=== PATIENT | male | born 1965 | race Caucasian/White ===

== ENCOUNTER 2023-10-29 11:01 | Inpatient (IN) | payer MEDICAID, OTHER ==
[~2023-10-29] VITALS: Ht 188 cm; Wt 85.8 kg
[2023-10-29 11:42] LABS: Basophils # (auto) 0.1 10 ^3/uL (0-0.2); Basophils % (auto) 0.7 % (0.0-2.0); Eosinophils # (auto) 0.3 10 ^3/uL (0-0.8); Eosinophils % (auto) 3.3 % (0.0-7.0); Hematocrit 44.3 % (41.0-53.0); Hemoglobin 15.7 g/dL (13.5-17.5); Lymphocytes # (auto) 1.7 10 ^3/uL (0.4-5.4); Lymphocytes % (auto) 17.3 % (10.0-50.0); Mean Corpuscular Hemoglobin 30.3 pg (28.0-32.0); Mean Corpuscular Hgb Conc. 35.4 g/dL (32.0-36.0); Mean Corpuscular Volume 85.7 fL (80.0-100.0); Monocytes # (auto) 0.7 10 ^3/uL (0-1.3); Monocytes % (auto) 7.1 % (0.0-12.0); Neutrophils # (auto) 6.9 10 ^3/uL (1.6-8.6); Neutrophils % (auto) 71.6 % (37.0-80.0); Platelet Count (auto) 257 10^3/uL (140-450); Red Blood Cells 5.17 10^6/uL (4.5-5.90); Red Cell Distribution Width 12.8 % (11.8-14.3); White Blood Cell 9.7 10^3/uL (4.4-10.8)
[2023-10-29 12:00] LABS: Alanine Aminotransferase 24 U/L (7-40); Albumin 4.7 g/dL (3.2-4.8); Alkaline Phosphatase 107 U/L (46-116); Anion Gap 8 (5-15); Aspartate Aminotransferase 10 U/L (13-40); BUN/Creatinine Ratio 5.7 (10.0-20.0); Bilirubin, Total 0.5 mg/dL (0.2-1.0); Blood Urea Nitrogen 5 mg/dL (9-23); Calcium 9.7 mg/dL (8.7-10.4); Carbon Dioxide 27 mmol/L (20-30); Chloride 100 mmol/L (98-107); Glucose 215 mg/dL (74-106); Potassium 3.6 mmol/L (3.5-5.1); Sodium 135 mmol/L (136-145); Total Protein 7.8 g/dL (5.7-8.2)
[2023-10-29 12:08] LABS: CRP High Sensitivity 3.33 mg/dL (<1.0)
[2023-10-29] MEDS ORDERED: VANCOMYCIN PER PHARMACY 0 MG IV SCH ×2 (12:30→14:30)
[2023-10-29] MEDS ORDERED: VANCOMYCIN 1GM/200ML 200 ML IV SCH (13:00)
[2023-10-29 13:17] LABS: Erythrocyte Sedimentation Rate 24 mm/hr (0-20)
[2023-10-29] MEDS ORDERED: DEXTROSE (50%) 50ML SYRG IV PRN ×2 (13:45→14:30)
[2023-10-29] MEDS ORDERED: NITROGLYCERIN 0.4 MG SL TAB SL PRN (14:30)
[2023-10-29] MEDS: LISINOPRIL 5 MG TAB PO ONE (14:30)
[2023-10-29] MEDS ORDERED: DOCUSATE SOD 100 MG CAP PO PRN (14:30)
[2023-10-29] MEDS: SODIUM CHLORIDE 0.9% 1,000 ML IV SCH (14:30)
[2023-10-29] MEDS ORDERED: ONDANSETRON HCL 4 MG/2 ML VIAL IV PRN (14:30)
[2023-10-29] MEDS: PIPERACILLIN-TAZOB 3.375GM 100 ML IV ONE (14:39)
[2023-10-29] MEDS ORDERED: ACCU-CHEK COMFORT CURVE STRIP VI SCH (17:00)
[2023-10-29] MEDS: InsuLIN REG 1unit/0.01ml Soln (100units/ml) SC SCH ×2 (17:00→21:50)
[2023-10-29] MEDS ORDERED: InsuLIN REG 1unit/0.01ml Soln (100units/ml) SC SCH (17:00)
[2023-10-29] MEDS: ACCU-CHEK COMFORT CURVE STRIP VI SCH (17:27)
[2023-10-29 17:42] VITALS: BP 153/102; PULSE 77; RESP 20; TEMP 98; O2SAT 98
[2023-10-29 17:56] VITALS: BP 153/102; PULSE 79; RESP 20; TEMP 98; O2SAT 97
[2023-10-29 18:15] VITALS: BP 153/102; PULSE 77; RESP 20; TEMP 98; O2SAT 98
[2023-10-29 20:00] VITALS: PULSE 84; RESP 18; O2SAT 98
[2023-10-29 21:00] VITALS: BP 144/84; PULSE 80; RESP 21; TEMP 97.7; O2SAT 95
[2023-10-29] MEDS: VANCOMYCIN 1GM/200ML 200 ML IV SCH (21:52)
[2023-10-30] MEDS: PIPERACILLIN-TAZOB 3.375GM 100 ML IV SCH (00:02)
[2023-10-30 05:00] VITALS: BP 148/88; PULSE 71; RESP 18; TEMP 97.9; O2SAT 93
[2023-10-30 07:33] LABS: Basophils # (auto) 0 10 ^3/uL (0-0.2); Basophils % (auto) 0.6 % (0.0-2.0); Eosinophils # (auto) 0.4 10 ^3/uL (0-0.8); Eosinophils % (auto) 4.8 % (0.0-7.0); Hematocrit 40.9 % (41.0-53.0); Hemoglobin 14.6 g/dL (13.5-17.5); Lymphocytes # (auto) 1.7 10 ^3/uL (0.4-5.4); Lymphocytes % (auto) 21.7 % (10.0-50.0); Mean Corpuscular Hemoglobin 30.5 pg (28.0-32.0); Mean Corpuscular Hgb Conc. 35.7 g/dL (32.0-36.0); Mean Corpuscular Volume 85.6 fL (80.0-100.0); Monocytes # (auto) 0.7 10 ^3/uL (0-1.3); Monocytes % (auto) 8.8 % (0.0-12.0); Neutrophils # (auto) 5.1 10 ^3/uL (1.6-8.6); Neutrophils % (auto) 64.1 % (37.0-80.0); Platelet Count (auto) 230 10^3/uL (140-450); Red Blood Cells 4.78 10^6/uL (4.5-5.90); Red Cell Distribution Width 12.9 % (11.8-14.3)
[2023-10-30 07:38] LABS: Alanine Aminotransferase 18 U/L (7-40); Albumin 4.2 g/dL (3.2-4.8); Alkaline Phosphatase 89 U/L (46-116); Anion Gap 7 (5-15); Aspartate Aminotransferase 9 U/L (13-40); BUN/Creatinine Ratio 8.6 (10.0-20.0); Blood Urea Nitrogen 8 mg/dL (9-23); Calcium 9.2 mg/dL (8.7-10.4); Carbon Dioxide 27 mmol/L (20-30); Chloride 101 mmol/L (98-107); Glucose 179 mg/dL (74-106); Potassium 3.8 mmol/L (3.5-5.1); Sodium 135 mmol/L (136-145)
[2023-10-30 07:39] LABS: Bilirubin, Total 0.5 mg/dL (0.2-1.0); Total Protein 6.9 g/dL (5.7-8.2)
[2023-10-30 08:15] VITALS: BP_SYST 142; BP_SYST 151; BP_DIAS 95; BP_DIAS 97; PULSE 65; PULSE 87; RESP 19; RESP 20; TEMP 97.3; TEMP 97.5; O2SAT 93; O2SAT 98
[2023-10-30] MEDS: ENOXAPARIN SOD 40 MG/0.4 ML SYRINGE SC SCH (10:07)
[2023-10-30] MEDS: LISINOPRIL 5 MG TAB PO SCH (10:07)
[2023-10-30 12:30] VITALS: BP 146/82; PULSE 68; RESP 17; TEMP 98.3; O2SAT 94
[2023-10-30 16:52] VITALS: BP 146/79; PULSE 67; RESP 19; TEMP 98.3; O2SAT 97
[2023-10-30 20:15] VITALS: PULSE 84; RESP 18; O2SAT 98
[2023-10-30 21:00] VITALS: BP 153/86; PULSE 71; RESP 18; TEMP 98.7; O2SAT 94
[2023-10-30] MEDS: VANCOMYCIN 1GM/200ML 200 ML IV SCH (23:04)
[2023-10-31 01:00] VITALS: BP 146/86; PULSE 71; RESP 18; TEMP 98.4; O2SAT 95
[2023-10-31 05:00] VITALS: BP 128/78; PULSE 74; RESP 18; TEMP 98; O2SAT 95
[2023-10-31] MEDS: guaiFENesin-DM 100/10mg/5ml SYR PO PRN (08:44)
[2023-10-31 13:32] VITALS: BP 145/94; PULSE 71; RESP 17; TEMP 98.8; O2SAT 95
[2023-10-31] MEDS: MORPHINE SULFATE INJ 2 MG/ml SYRG IV PRN (15:57)
[2023-10-31 17:00] VITALS: BP 143/78; PULSE 73; RESP 17; TEMP 98.2; O2SAT 96
[2023-10-31 20:00] VITALS: PULSE 84; RESP 18; O2SAT 98
[2023-10-31 21:00] VITALS: BP_SYST 108; BP_SYST 140; BP_DIAS 69; BP_DIAS 89; PULSE 73; RESP 20; TEMP 98.1; O2SAT 94
[2023-10-31] MEDS: ACETAMINOPHEN 325 MG TAB PO PRN (22:46)
[2023-11-01] VITALS (8 sets, daily range): BP systolic 135–147; BP diastolic 80–88; PULSE 62–75; RESP 13–20; TEMP 97.5–98.7; O2SAT 90–93
[2023-11-02] VITALS (7 sets, daily range): BP systolic 135–164; BP diastolic 88–96; PULSE 74–79; RESP 16–19; TEMP 97.7–98; O2SAT 93–98
[2023-11-03] VITALS (8 sets, daily range): BP systolic 141–163; BP diastolic 80–83; PULSE 63–74; RESP 16–20; TEMP 97.8–98; O2SAT 92–95
[2023-11-03] MEDS: PIPERACILLIN-TAZOB 3.375GM 100 ML IV ONE (14:20)
[2023-11-04] VITALS (7 sets, daily range): BP systolic 114–151; BP diastolic 73–108; PULSE 52–86; RESP 17–20; TEMP 97.9–98.2; O2SAT 93–97
[2023-11-04 07:15] LABS: Basophils # (auto) 0.1 10 ^3/uL (0-0.2); Basophils % (auto) 0.6 % (0.0-2.0); Eosinophils # (auto) 0.4 10 ^3/uL (0-0.8); Eosinophils % (auto) 4.9 % (0.0-7.0); Hematocrit 43.4 % (41.0-53.0); Hemoglobin 15.4 g/dL (13.5-17.5); Lymphocytes # (auto) 1.8 10 ^3/uL (0.4-5.4); Lymphocytes % (auto) 21.7 % (10.0-50.0); Mean Corpuscular Hemoglobin 30.8 pg (28.0-32.0); Mean Corpuscular Hgb Conc. 35.6 g/dL (32.0-36.0); Mean Corpuscular Volume 86.7 fL (80.0-100.0); Monocytes # (auto) 0.7 10 ^3/uL (0-1.3); Monocytes % (auto) 8.7 % (0.0-12.0); Neutrophils # (auto) 5.2 10 ^3/uL (1.6-8.6); Neutrophils % (auto) 64.1 % (37.0-80.0); Platelet Count (auto) 209 10^3/uL (140-450); Red Blood Cells 5.01 10^6/uL (4.5-5.90); Red Cell Distribution Width 12.6 % (11.8-14.3); White Blood Cell 8.1 10^3/uL (4.4-10.8)
[2023-11-04] MEDS ORDERED: METF-489 PO (11:52)
[2023-11-04] MEDS ORDERED: HYDR-4902 PO (11:52)
[2023-11-04] MEDS ORDERED: AUG875T PO (11:52)
[2023-11-04] MEDS ORDERED: LISI20TA56 PO (11:52)
[2023-11-04] MEDS ORDERED: GABA-1308 PO (14:51)
== END 2023-11-04 17:47 | disposition home health service (06) | DRG 383 ==
LOC: ER 11:01 → OVERFLOW 14:27 → WEST WING 17:48
PROVIDERS: ADMIT Nurse Practitioner Family; ATTEND Internal Medicine
DX: L03.115 Cellulitis of right lower limb (principal); E11.621 Type 2 diabetes mellitus with foot ulcer; L97.519 Non-pressure chronic ulcer of other part of right foot with unspecified severity; E11.42 Type 2 diabetes mellitus with diabetic polyneuropathy; I10 Essential (primary) hypertension; E11.65 Type 2 diabetes mellitus with hyperglycemia; F41.9 Anxiety disorder, unspecified; F17.200 Nicotine dependence, unspecified, uncomplicated
CPT/HCPCS: 36415; 73630; 73718; 80053; 80202; 82565; 82962; 83036; 83605; 83880; 85025; 85652; 86141; 87081; 87340; 93926; 93971; G0378; J1815; J2543

== ENCOUNTER 2024-04-30 12:11 | Inpatient (IN) | payer MEDICAID ==
[~2024-04-30] VITALS: Ht 188 cm; Wt 122.4 kg
[~2024-04-30 12:11] MED LIST: AUG875T PO; GABA-1308 PO; HYDR-4902 PO; LISI20TA56 PO; METF-489 PO
--- NOTE | 2024-04-30 12:21 | ED.PDOC ---
History of Present Illness HPI Comments 58Y M with PMHx DM, HTN, Hep C, and neuropathy presents to ED via EMS for chief complaint weakness x3days with numbness, left sided chest pain, and n/v this morning. Per EMS, BS 133 on the field. No other symptoms reported. Time Seen by MD: 12:12 Reviewed Notes: Nurses Notes, Associate Broker Notes, Medications, Allergies Allergies: Coded Allergies: NO KNOWN ALLERGIES (Unverified , 10/29/23) Home Meds Active Scripts Gabapentin (Gabapentin) 100 Mg Cap, 1 CAP PO TID, #90 CAP 5 Refills Prov:CHICHO CRAWFORD MD 11/04/23 Hydrocodone-Acetaminophen (Hydrocodone Bitartrate/AC 5-325 mg) 1 Tab Tab, 1 TAB PO Q6HPRN PRN, #20 TAB Prov:CHICHO CRAWFORD MD 11/04/23 Lisinopril (Lisinopril) 20 Mg Tab, 1 TAB PO DAILY, #30 TAB 5 Refills Prov:CHICHO CRAWFORD MD 11/04/23 Metformin Hydrochloride (METFORMIN HCL ER) 500 Mg Tab, 500 MG PO BID, #60 TAB 5 Refills Prov:CHICHO CRAWFORD MD 11/04/23 Amoxicillin & Pot Clavulanate (AUGMENTIN TABLET) 875 Mg Tb, 875 MG PO BID, #28 TAB Prov:CHICHO CRAWFORD MD 11/04/23 Information Source: Patient, Emergency Med Personnel, [facility] Medical Record Mode of Arrival: EMS Severity: Mild Timing: Days Duration: Since onset Prehospital treatment: None Past Medical History PAST MEDICAL HISTORY: DM, HTN, Liver Surgical History: Denies all surgeries Family History Family History: Reviewed,noncontributory to illness, No family hx of Cancer, No family hx of DM, No family hx of Heart yary, No family hx of HTN, No family hx ofKidney yary, No family hx of Liver yary, No family hx of Lung yary, No family hx of Stroke Social History Smoker: Cigarettes Alcohol: Denies ETOH Use Drugs: Denies Drug Use Lives In: Assisted Care Constitutional: reports: weakness; denies: chills, diaphoresis, fatigue, fever, malaise, sweats, others EENTM: denies: blurred vision, double vision, ear bleeding, ear discharge, ear drainage, ear pain, ear ringing, eye pain, eye redness, hearing loss, mouth pain, mouth swelling, nasal discharge, nose bleeding, nose congestion, nose pain, photophobia, tearing, throat pain, throat swelling, voice changes, others Respiratory: denies: cough, hemoptysis, orthopnea, SOB at rest, shortness of breath, SOB with excertion, stridor, wheezing, others Cardiovascular: reports: chest pain; denies: dizzy spells, diaphoresis, Dyspnea on exertion, edema, irregular heart beat, left arm pain, lightheadedness, palpitations, PND, syncope, others Gastrointestinal: reports: nausea, vomiting; denies: abdomen distended, abdominal pain, blood streaked bowels, constipated, diarrhea, dysphagia, difficulty swallowing, hematemesis, melena, poor appetite, poor fluid intake, rectal bleeding, rectal pain, others Genitourinary: denies: burning, dysuria, flank pain, frequency, hematuria, incontinence, penile discharge, penile sore, pain, testicle pain, testicle swelling, urgency, others Neurological: reports: numbness, weakness; denies: dizziness, fainting, headache, left sided numbness, left sided weakness, paresthesia, pre-existing deficit, right sided numbness, right sided weakness, seizure, speech problems, tingling, tremors, others Musculoskeletal: denies: back pain, gout, joint pain, joint swelling, muscle pain, muscle stiffness, neck pain, others Integumetry: denies: bruises, change in color, change in hair/nails, dryness, laceration, lesions, lumps, rash, wounds, others Allergic/Immunocompromised: denies: Difficulty Healing, Frequent Infections, Hives, Itching, others Hematologic/Lymphatic: denies: anemia, blood clots, easy bleeding, easy bruising, swollen glands, others Endocrine: denies: excessive hunger, excessive sweating, excessive thirst, excessive urination, flushing, intolerance to cold, intolerance to heat, unexplained weight gain, unexplained weight loss, others Psychiatric: denies: anxiety, bipolar disorder, depression, hopeless, panic disorder, schizophrenia, sleepless, suicidal, others All Other Systems: Reviewed and Negative Physical Exam General Appearance: No Apparent Distress, Normal HEENT: Normal ENT Inspection, Pharynx Normal, TMs Normal Neck: Full Range of Motion, Non-Tender, Normal, Normal Inspection Respiratory: Chest Non-Tender, Lungs Clear, No Accessory Muscle Use, No Respiratory Distress, Normal Breath Sounds Cardiovascular: No Edema, No JVD, No Murmur, No Gallop, Normal Peripheral Pulses, Regular Rate/Rhythm Breast Exam: Deferred Gastrointestinal: No Organomegaly, Non Tender, No Pulsatile Mass, Normal Bowel Sounds, Soft Genitalia: Deferred Pelvic: Deferred Rectal: Deferred Extremities: No calf tenderness, Normal capillary refill, Normal inspection, Normal range of motion, Non-tender, No pedal edema Musculoskeletal : Apperance: Normal Neurologic: Alert, chisel trimmer II-XII nml as Tested, No Motor Deficits, Normal Affect, Normal Mood, No Sensory Deficits Cerebellar Function: Normal Reflexes: Normal Skin: Dry, Normal Color, Warm Lymphatic: No Adenopathy Was a procedure done? Was a procedure done?: No Differential Dx Considerations may include: unstable angina, stemi, nstemi, anxiety, chest wall pain, zoster, pe, ptx, pleurisy, pneumonia, dehydration X-Ray, Labs, Meds, VS Vital Signs Date Time Temp Pulse Resp B/P (MAP) Pulse Ox O2 Delivery O2 Flow Rate FiO2 04/30/24 13:56 100 22 95 Room Air* 0 21 04/30/24 12:44 103 16 94 Room Air 04/30/24 12:44 97.6 103 16 148/92 (110) 94 97.6 04/30/24 12:25 98.9 100 24 142/87 (105) 95 98.9 Lab Test 04/30/24 13:31 04/30/24 12:32 Range/Units Troponin I High Sensitivity < 3 L < 3 L </=54 ng/L White Blood Count 8.9 4.4-10.8 10^3/uL Red Blood Count 5.78 4.5-5.90 10^6/uL Hemoglobin 16.8 13.5-17.5 g/dL Hematocrit 48.7 41.0-53.0 % Mean Corpuscular Volume 84.3 80.0-100.0 fL Mean Corpuscular Hemoglobin 29.0 28.0-32.0 pg Mean Corpuscular Hemoglobin Concent 34.4 32.0-36.0 g/dL Red Cell Distribution Width 13.4 11.8-14.3 % Platelet Count 257 140-450 10^3/uL Mean Platelet Volume 7.5 6.9-10.8 fL Neutrophils (%) (Auto) 76.5 37.0-80.0 % Lymphocytes (%) (Auto) 14.9 10.0-50.0 % Monocytes (%) (Auto) 5.5 0.0-12.0 % Eosinophils (%) (Auto) 2.5 0.0-7.0 % Basophils (%) (Auto) 0.6 0.0-2.0 % Neutrophils # (Auto) 6.8 1.6-8.6 10 ^3/uL Lymphocytes # (Auto) 1.3 0.4-5.4 10 ^3/uL Monocytes # (Auto) 0.5 0-1.3 10 ^3/uL Eosinophils # (Auto) 0.2 0-0.8 10 ^3/uL Basophils # (Auto) 0.1 0-0.2 10 ^3/uL Nucleated Red Blood Cells 0.1 % Sodium Level 136 136-145 mmol/L Potassium Level 4.2 3.5-5.1 mmol/L Chloride Level 100 98-107 mmol/L Carbon Dioxide Level 27 20-31 mmol/L Anion Gap 9 5-15 Blood Urea Nitrogen 9 9-23 mg/dL Creatinine 1.28 0.700-1.30 mg/dL Glomerular Filtration Rate Calc 64 >90 mL/min BUN/Creatinine Ratio 7.0 L 10.0-20.0 Serum Glucose 352 H 74-106 mg/dL Calcium Level 9.7 8.7-10.4 mg/dL Current Medications Medications (Trade) Dose Ordered Sig/[place] Route Start Time Stop Time Status Last Admin Sodium Chloride 1,000 ml @ 1,000 mls/hr Q1H ONCE IV 04/30/24 12:30 04/30/24 13:29 DC 04/30/24 12:49 [place] [id number] Ph: [phone] DIAGNOSTIC IMAGING Diagnostic Imaging Report : [id number] Signed PATIENT: YOUSIF EASON ACCT: [id number] UNIT: [id number] : 1965 LOC: ER ROOM / BED: / AGE / SEX: 58 / M ADM STATUS: REG ER SERVICE 1216 ORDERING PHYSICIAN: SHIREEN LITTLEJOHN MD PROCEDURE(s): CXRP - CHEST PORTABLE REASON: cp ORDER NUMBER(s): [id number], ACCESSION NUMBER(s): [id number] CHEST RADIOGRAPH Indication: cp Technique: Single frontal view of the chest was obtained Comparison: None FINDINGS: Lines and Tubes: None Lungs: No focal consolidation. Pleura: No effusion. No pneumothorax. Cardiomediastinal contours: Unremarkable Bones: No acute osseous abnormality. IMPRESSION: No acute cardiopulmonary disease. ATED BY: SAMANTHA GARCIA DO DICTATED DATE/TIME: 04/30/24 1258 SIGNED BY: SAMANTHA GARCIA DO SIGNED DATE/TIME: 04/30/24 1258 CC: Time of 1ST Reevaluation: 12:42 Reevaluation 1ST: Unchanged Time of 2ND Reevaluation: 14:06 Reevaluation 2ND: Unchanged Patient Education/Counseling: Diagnosis, Treatment, Prognosis, Need For Follow Up Family Education/Counseling: No Family Present Additional Information Previous visit documents reviewed: [facility] discharge 11/04/2023 The following tests were ordered, and results were reviewed by me: EKG x3, CBC, BMP, Troponin x3, CXR Additional Information was gathered from interviewing the following independent historians: EMS I reviewed and agreed with the following test results read by other providers: CXR I discussed treatment and results with medical personnel and: Patient Departure 1 Departure Time of Disposition: 14:05 Impression: Primary Impression: Weakness Additional Impression: Unstable angina Disposition: ADMITTED INPATIENT Admit to: Tele Condition: Stable Critical Care Note Critical Care Time?: Yes (55 min-critical care time only) Critical care comment: Due to concerns for patients condition deteriorating, the care required my highest level of attention and readiness to intervene. I assessed the patient, reviewed the medical records, ordered the appropriate tests and treatments, then reassessed for results and responsiveness. I communicated with medical personnel and consultants and formulated a plan of care. Total critical care time excludes any procedures Stability Stability form required: No Heart Score Heart Score: Heart Score Response (Comments) Value History Moderate Suspicious 1 EKG Repolarization Disturb 1 Age 45-64 1 Risk Factors 1 or 2 risk factors 1 Troponin Normal limit 0 Total 4 I personally scribed for SHIREEN LITTLEJOHN MD ([facility]) on 04/30/24 at 12:21. Electronically submitted by Cha Blas ([facility]). I personally scribed for SHIREEN LITTLEJOHN MD ([facility]) on 04/30/24 at 13:26. Electronically submitted by Cha Blas ([facility]). SHIREEN LITTLEJOHN MD Apr 30, 2024 12:21
[2024-04-30] MEDS: SODIUM CHLORIDE 0.9% 1,000 ML IV ONE ×2 (12:49→22:44)
--- NOTE | 2024-04-30 13:00 | DVH ---
CHEST RADIOGRAPH Indication: cp Technique: Single frontal view of the chest was obtained Comparison: None FINDINGS: Lines and Tubes: None Lungs: No focal consolidation. Pleura: No effusion. No pneumothorax. Cardiomediastinal contours: Unremarkable Bones: No acute osseous abnormality. IMPRESSION: No acute cardiopulmonary disease.
[2024-04-30 13:02] LABS: Basophils # (auto) 0.1 10 ^3/uL (0-0.2); Basophils % (auto) 0.6 % (0.0-2.0); Eosinophils # (auto) 0.2 10 ^3/uL (0-0.8); Eosinophils % (auto) 2.5 % (0.0-7.0); Hematocrit 48.7 % (41.0-53.0); Hemoglobin 16.8 g/dL (13.5-17.5); Lymphocytes # (auto) 1.3 10 ^3/uL (0.4-5.4); Lymphocytes % (auto) 14.9 % (10.0-50.0); Mean Corpuscular Hgb Conc. 34.4 g/dL (32.0-36.0); Mean Corpuscular Volume 84.3 fL (80.0-100.0); Monocytes # (auto) 0.5 10 ^3/uL (0-1.3); Monocytes % (auto) 5.5 % (0.0-12.0); Neutrophils # (auto) 6.8 10 ^3/uL (1.6-8.6); Neutrophils % (auto) 76.5 % (37.0-80.0); Nucleated Red Blood Cells % 0.1 %; Platelet Count (auto) 257 10^3/uL (140-450); Red Blood Cells 5.78 10^6/uL (4.5-5.90); Red Cell Distribution Width 13.4 % (11.8-14.3); White Blood Cell 8.9 10^3/uL (4.4-10.8)
[2024-04-30 13:10] LABS: Chloride 100 mmol/L (98-107); Potassium 4.2 mmol/L (3.5-5.1)
[2024-04-30 13:11] LABS: Anion Gap 9 (5-15); Carbon Dioxide 27 mmol/L (20-31)
[2024-04-30 13:12] LABS: Calcium 9.7 mg/dL (8.7-10.4)
[2024-04-30 13:18] LABS: Blood Urea Nitrogen 9 mg/dL (9-23); Glucose 352 mg/dL (74-106); Sodium 136 mmol/L (136-145)
[2024-04-30 13:56] VITALS: PULSE 100; RESP 22; O2SAT 95
[2024-04-30] MEDS: ASPirin 325 MG TAB PO ONE (15:22)
[2024-04-30] MEDS: InsuLIN REG 1unit/0.01ml Soln (100units/ml) SC ONE (15:23)
[2024-04-30 16:00] VITALS: PULSE 92
--- NOTE | 2024-04-30 22:11 | DVHHPRES ---
History of Present Illness Resident Creating Document: JESSE CESAR RESDIENT History of Present Illness This is a 58-year-old male with past medical history of hypertension, diabetes with peripheral neuropathy, and hepatitis-C were is came to the hospital due to chest pain since 3 days. Pain is localized in left side, constant, 10/10, stabbing in nature, with no clear exacerbating or relieving factor. He also reports fever, nausea, vomiting, palpitation, bilateral upper limb numbness and generalized weakness. He denies shortness of breath, abdominal, or any recent bowel and bladder habit changes. PMHx: Diabetes with peripheral neuropathy, hypertension, hepatitis-C virus PSHx: No significant Family history: Noncontributory Social history: Ex-smoker, denies alcohol or any other drug use Home medication: Gabapentin, metoprolol, sertraline, bupropion, atorvastatin, amlodipine, lisinopril, Allergic history: No known allergy Review of Systems Review of Systems General: Reports fever and generalized weakness HEENT: No headaches, visiual changes, hearing loss, tinnitus, nasal congestion and discharge, and sore throat. Cardiovascular: Reports chest pain and palpitation Respiratory: No cough, and wheezing. Gastrointestinal: Reports nausea and vomiting Genitourinary: No dysuria, hematuria, discharge, frequency, urgency, nocturia, incontinence, and urinary retention. Endocrine: No heat or cold intolerance, polydipsia, polyuria, and polyphagia. Neurological: No dizziness, extremity weakness and numbness, tremors, gait disturbance, seizures, and memory impairment. Psychiatric: Denies depression, anxiety,or insomnia. Musculoskeletal: Reports bilateral upper limb numbness Skin: No rashes, itching, skin lesion, changes in hair, nail, skin texture and breast. Hematologic/Lymphatic: Denies easy bruising, bleeding tendencies, or lymph node enlargement. Allergies: Coded Allergies: NO KNOWN ALLERGIES (Unverified , 10/29/23) Exam Vital Signs Vital Signs Date Time Temp Pulse Resp B/P (MAP) Pulse Ox O2 Delivery O2 Flow Rate FiO2 04/30/24 21:36 88 04/30/24 20:00 98.1 18 139/85 (103) 93 98.1 04/30/24 13:56 Room Air* 0 21 Exam General Appearance: Alert, Oriented X3, Cooperative, No acute distress HEENT: Atraumatic, PERRLA, EOMI, Mucous membrane moist/pink Respiratory: Clear to auscultation, Normal air movement Cardiovascular: Regular rate, Normal S1, Normal S2, No murmurs, no chest wall tenderness Abdominal: Normal bowel sounds, Soft, No tenderness, No hepatospenomegaly, No masses Extremities: No clubbing, No cyanosis, No edema, Normal pulses, No tenderness/swelling Skin: No rashes, No breakdown, No significant lesion Neuro: Normal gait, Normal speech, Strength at 5/5 X4 ext, Normal tone, Sensation intact, Cranial nerves 3-12 NL, Reflexes 2+ Psych/Mental Status: Mental status NL, Mood NL Labs/Xrays Labs Test 04/30/24 13:31 04/30/24 12:32 Range/Units Troponin I High Sensitivity < 3 L </=54 ng/L White Blood Count 8.9 4.4-10.8 10^3/uL Red Blood Count 5.78 4.5-5.90 10^6/uL Hemoglobin 16.8 13.5-17.5 g/dL Hematocrit 48.7 41.0-53.0 % Mean Corpuscular Volume 84.3 80.0-100.0 fL Mean Corpuscular Hemoglobin 29.0 28.0-32.0 pg Mean Corpuscular Hemoglobin Concent 34.4 32.0-36.0 g/dL Red Cell Distribution Width 13.4 11.8-14.3 % Platelet Count 257 140-450 10^3/uL Mean Platelet Volume 7.5 6.9-10.8 fL Neutrophils (%) (Auto) 76.5 37.0-80.0 % Lymphocytes (%) (Auto) 14.9 10.0-50.0 % Monocytes (%) (Auto) 5.5 0.0-12.0 % Eosinophils (%) (Auto) 2.5 0.0-7.0 % Basophils (%) (Auto) 0.6 0.0-2.0 % Neutrophils # (Auto) 6.8 1.6-8.6 10 ^3/uL Lymphocytes # (Auto) 1.3 0.4-5.4 10 ^3/uL Monocytes # (Auto) 0.5 0-1.3 10 ^3/uL Eosinophils # (Auto) 0.2 0-0.8 10 ^3/uL Basophils # (Auto) 0.1 0-0.2 10 ^3/uL Nucleated Red Blood Cells 0.1 % Sodium Level 136 136-145 mmol/L Potassium Level 4.2 3.5-5.1 mmol/L Chloride Level 100 98-107 mmol/L Carbon Dioxide Level 27 20-31 mmol/L Anion Gap 9 5-15 Blood Urea Nitrogen 9 9-23 mg/dL Creatinine 1.28 0.700-1.30 mg/dL Glomerular Filtration Rate Calc 64 >90 mL/min BUN/Creatinine Ratio 7.0 L 10.0-20.0 Serum Glucose 352 H 74-106 mg/dL Calcium Level 9.7 8.7-10.4 mg/dL Assessment/Plan Assessment/Plan Assessment: Chest pain, possible ACS Uncontrolled diabetes type 2 with hyperglycemia Questionable pneumonia History of hypertension History of hepatitis-C virus Mild hepatomegaly, fatty liver Obesity, grade 1 Dyslipidemia EKGs shows normal sinus rhythm with no acute ST or T-wave changes Plan: Atorvastatin Aspirin Continue home meds including sertraline, amlodipine, gabapentin, lisinopril bupropion sign Insulin regular, sliding scale Echocardiogram Empiric antibiotic, azithromycin DIET: Cardiac diet DVT PROPHYLAXIS: Lovenox GI PROPHYLAXIS:: Protonix CODE STATUS: Goal of care for more than 18 minutes, full code DISPOSITION: Telemetry Patient's status and plan discussed with the patient. Case discussed with Dr. Bah. Plan discussed with: Patient, Other (RN) My Orders Orders - JESSE CESAR RESDICHRISTOPHER Procedure Category Date Status Time Admit ADMIT 04/30/24 Verified 22:02 Code Status CODE 04/30/24 Verified 22:02 Vital Signs [facility] 04/30/24 Verified 22:02 Review Orders With [facility] 04/30/24 Verified Adm. 22:02 Acetaminophen Tablet PHA 04/30/24 Verified (Tylenol Tablet) 22:15 Notify Of Changes [facility] 04/30/24 Verified From Base 22:02 Advance Directive [facility] 04/30/24 Verified 22:02 Echo 2d Mode Cardiac US 04/30/24 Verified DOP 22:02 Urinalysis LAB 04/30/24 Verified 22:02 Lipid Panel LAB 04/30/24 Verified 22:02 Patient Condition ORDERS 04/30/24 Verified 22:02 Allergies [facility] 04/30/24 Verified 22:02 Hydrocodone-Acet PHA 04/30/24 Verified 5/325mg Tab ([place] 22:15 Drug Screen LAB 04/30/24 Verified 22:02 Hemoglobin A1c LAB 04/30/24 Verified 22:02 Lovenox 40mg PHA 05/01/24 Verified 10:00 Stat Ekg For Chest NAYELI 04/30/24 Verified Pain 22:02 Notify Of Changes NAYELI 04/30/24 Verified From Base 22:02 Morphine Sulfate PHA 04/30/24 Verified Injection 22:15 Comprehensive LAB 05/01/24 Verified Metabolic Panel 04:00 Complete Blood Count LAB 05/01/24 Verified 04:00 PTPTT LAB 05/01/24 Verified 04:00 Thyroid Stimulating LAB 04/30/24 Verified Hormone 22:02 Aspirin Tablet PHA 05/01/24 Verified 10:00 Sertraline Hcl PHA 04/30/24 Verified (Zoloft) 22:15 Sertraline Hcl PHA 05/01/24 Verified (Zoloft) 10:00 Atorvastatin (Lipitor) PHA 04/30/24 Verified 22:15 Atorvastatin (Lipitor) PHA 05/01/24 Verified 22:00 Amlodipine Tablet PHA 04/30/24 Verified (Norvasc Tablet) 22:15 Amlodipine Tablet PHA 05/01/24 Verified (Norvasc Tablet) 10:00 Gabapentin Capsule PHA 05/01/24 Verified (Neurontin Capsule) 10:00 Gabapentin Capsule PHA 04/30/24 Verified (Neurontin Capsule) 22:15 Pantoprazole PHA 04/30/24 Verified (Protonix) 22:15 Pantoprazole PHA 05/01/24 Verified (Protonix) 10:00 Bupropion Tablet PHA 05/01/24 Verified (Wellbutrin Tablet) 07:00 Bupropion Tablet PHA 04/30/24 Verified (Wellbutrin Tablet) 22:15 Lisinopril Tablet PHA 04/30/24 Verified (Zestril Tablet) 22:15 Lisinopril Tablet PHA 05/01/24 Verified (Zestril Tablet) 10:00 Glucose Blood PHA 05/01/24 Verified (Accu-Chek Comfort 00:00 Moderate Insulin Ss PHA 05/01/24 Verified 00:00 Dextrose 50% Syringe PHA 04/30/24 Verified 22:15 Accucheck ED NURSING 04/30/24 Verified NS PHA 04/30/24 Verified 22:15 NS PHA 04/30/24 Verified 22:15 LIVER US 04/30/24 Verified 22:02 Ondansetron Hcl PHA 04/30/24 Verified (Zofran) 22:15 Ondansetron Hcl PHA 04/30/24 Verified (Zofran) 22:15 Date of Service: Apr 30, 2024 Billing Provider: MANOHAR BAH MD Common Visit Codes: [id number] INP/OBS CARE (HIGH) JESSE CESAR Apr 30, 2024 22:11 MANOHAR BAH MD May 03, 2024 10:54
[2024-04-30] MEDS ORDERED: MORPHINE SULFATE INJ 2 MG/ml SYRG IV PRN (22:15)
[2024-04-30] MEDS ORDERED: DEXTROSE (50%) 50ML SYRG IV PRN (22:15)
[2024-04-30] MEDS ORDERED: ONDANSETRON HCL 4 MG/2 ML VIAL IV PRN (22:15)
[2024-04-30] MEDS: buPROPion HCL 75 MG TAB PO ONE (22:35)
[2024-04-30] MEDS: amLODIPine BESYLATE 5 MG TAB PO ONE (22:35)
[2024-04-30] MEDS: SERTRALINE HCL 50 MG TAB PO ONE (22:35)
[2024-04-30] MEDS: LISINOPRIL 20 MG TAB PO ONE (22:36)
[2024-04-30] MEDS: GABAPENTIN 100 MG CAP PO ONE (22:36)
[2024-04-30] MEDS: ATORVASTATIN 20 MG TAB PO ONE (22:36)
[2024-04-30 22:40] LABS: LDL Cholesterol 72 mg/dL (< 100)
[2024-04-30] MEDS: ONDANSETRON HCL 4 MG/2 ML VIAL IV ONE (22:40)
[2024-04-30] MEDS: PANTOPRAZOLE 40 MG/10 ML VIAL INJ IV ONE (22:40)
[2024-04-30 22:41] LABS: Cholesterol 132 mg/dL (< 200)
[2024-04-30 22:47] LABS: HDL Cholesterol 31 mg/dL (40-59); Triglycerides 280 mg/dL (< 150)
--- NOTE | 2024-04-30 23:18 | DVH ---
INDICATION: Abdominal Pain TECHNIQUE: Multiple real-time sonographic images of the abdomen were obtained. COMPARISON: None FINDINGS: Liver is mildly enlarged measuring 17.7 cm but demonstrates diffuse increased echogenicity consistent with fatty infiltration. No focal lesion is identified in the liver. No intrahepatic or extrahepatic biliary ductal dilatation noted. Common bile duct measures 5 mm. Gallbladder appears unremarkable with no evidence of stones or wall thickening. Sonographic Mooney's sign was reportedly negative. Right kidney measures 11.5 cm and appears unremarkable. No hydronephrosis. Visualized pancreas appears unremarkable. No fluid collection noted. IMPRESSION: No evidence of cholelithiasis/cholecystitis or other acute abnormality. Mild hepatomegaly and fatty i nfiltration of the liver.
[2024-04-30 23:26] LABS: Albumin 4.5 g/dL (3.2-4.8); Bilirubin, Direct 0.1 mg/dL (<0.3); Total Protein 7.5 g/dL (5.7-8.2)
[2024-04-30 23:27] LABS: Bilirubin, Total 0.4 mg/dL (0.2-1.0)
[2024-05-01] VITALS (9 sets, daily range): BP systolic 114–164; BP diastolic 63–94; PULSE 66–81; RESP 13–19; TEMP 97.5–98.4; O2SAT 92–97
[2024-05-01] MEDS: ACCU-CHEK COMFORT CURVE STRIP VI SCH (00:12)
[2024-05-01] MEDS: InsuLIN REG 1unit/0.01ml Soln (100units/ml) SC SCH (00:17)
[2024-05-01] MEDS: HYDROcodone-ACET 5/325MG TAB PO PRN (00:21)
[2024-05-01] MEDS: SODIUM CHLORIDE 0.9% 1,000 ML IV SCH (01:00)
[2024-05-01] MEDS: buPROPion HCL 75 MG TAB PO SCH (06:20)
[2024-05-01] MEDS: AZITHROMYCIN 500MG/ 250ML 250 ML IV ONE (06:30)
[2024-05-01 08:43] LABS: Basophils # (auto) 0.1 10 ^3/uL (0-0.2); Eosinophils # (auto) 0.3 10 ^3/uL (0-0.8); Eosinophils % (auto) 3.5 % (0.0-7.0); Hematocrit 42.5 % (41.0-53.0); Hemoglobin 14.4 g/dL (13.5-17.5); Lymphocytes # (auto) 1.7 10 ^3/uL (0.4-5.4); Lymphocytes % (auto) 22.4 % (10.0-50.0); Mean Corpuscular Hemoglobin 28.7 pg (28.0-32.0); Mean Corpuscular Volume 84.3 fL (80.0-100.0); Monocytes # (auto) 0.4 10 ^3/uL (0-1.3); Monocytes % (auto) 5.6 % (0.0-12.0); Neutrophils # (auto) 5.2 10 ^3/uL (1.6-8.6); Neutrophils % (auto) 67.5 % (37.0-80.0); Nucleated Red Blood Cells % 0.1 %; Platelet Count (auto) 211 10^3/uL (140-450); Red Blood Cells 5.03 10^6/uL (4.5-5.90); Red Cell Distribution Width 13.6 % (11.8-14.3); White Blood Cell 7.7 10^3/uL (4.4-10.8)
[2024-05-01 08:59] LABS: Alanine Aminotransferase 34 U/L (7-40); Albumin 4.1 g/dL (3.2-4.8); Anion Gap 6 (5-15); Aspartate Aminotransferase 22 U/L (13-40); BUN/Creatinine Ratio 13.1 (10.0-20.0); Bilirubin, Total 0.5 mg/dL (0.2-1.0); Blood Urea Nitrogen 13 mg/dL (9-23); Calcium 8.9 mg/dL (8.7-10.4); Carbon Dioxide 27 mmol/L (20-31); Chloride 106 mmol/L (98-107); Potassium 3.9 mmol/L (3.5-5.1); Sodium 139 mmol/L (136-145); Total Protein 6.6 g/dL (5.7-8.2)
[2024-05-01 09:02] LABS: Alkaline Phosphatase 124 U/L (46-116); Glucose 183 mg/dL (74-106)
[2024-05-01 09:08] LABS: INR 1.07 (0.9-1.15); Partial Thromboplastin Time 27.3 SEC (24.5-34.5); Prothrombin Time 11.3 sec (9.3-11.8)
[2024-05-01] MEDS: ENOXAPARIN SOD 40 MG/0.4 ML SYRINGE SC SCH (09:51)
[2024-05-01] MEDS: GABAPENTIN 100 MG CAP PO SCH (09:52)
[2024-05-01] MEDS: PANTOPRAZOLE 40 MG/10 ML VIAL INJ IV SCH (09:52)
[2024-05-01] MEDS: LISINOPRIL 20 MG TAB PO SCH (09:53)
[2024-05-01] MEDS: ASPirin 81 mg TAB PO SCH (09:53)
[2024-05-01] MEDS: amLODIPine BESYLATE 5 MG TAB PO SCH (09:54)
[2024-05-01] MEDS: SERTRALINE HCL 50 MG TAB PO SCH (09:59)
[2024-05-01 10:13] LABS: COVID19 ANTIGEN SOFIA FIA NEGATIVE (NEGATIVE); Rapid Influenza A Negative (Negative); Rapid Influenza B Negative (Negative)
--- NOTE | 2024-05-01 14:20 | DVHPN2 ---
Subjective THe patient seen and examined at bedside. Still complains of chest pain. Reviewed: Care Plan, H&P, Labs, Medications, Previous Orders, Radiology Changes from previous H/P or p: No Changes Objective Vitals Vital Signs Date Time Temp Pulse Resp B/P (MAP) Pulse Ox O2 Delivery O2 Flow Rate FiO2 05/01/24 13:00 98.1 79 18 138/80 (99) 92 98.1 05/01/24 08:05 Nasal Cannula* 2 28 Intake/Output Intake and Output 05/01/24 07:00 Intake Total 1325 ml Balance 1325 ml Intake Oral 125 ml IV Total 1200 ml General Appearance: Alert, Oriented X3, Cooperative, No acute distress HEENT: Atraumatic, PERRLA, EOMI, Mucous membr. moist/pink Lungs: Clear to auscultation, Normal air movement Cardiovascular: Regular rate, Normal S1, Normal S2, No murmurs, Gallops, Rubs Abdomen: Normal bowel sounds, Soft, No tenderness Neuro: Cranial nerves 3-12 NL Psych/Mental Status: Mental status NL Medications Current Medications Medications Dose Ordered Sig/[place] Route Start Time Stop Time Status Last Admin Dose Admin Acetaminophen 650 mg Q6HP PRN PO 04/30/24 22:15 Acetaminophen/ Hydrocodone Bitart 1 tab Q4HP PRN PO 04/30/24 22:15 05/01/24 00:21 1 TAB Enoxaparin Sodium 40 mg DAILY SC 05/01/24 10:00 05/01/24 09:51 40 MG Morphine Sulfate 2 mg Q30M PRN IV 04/30/24 22:15 Aspirin 81 mg DAILY PO 05/01/24 10:00 05/01/24 09:53 81 MG Sertraline HCl 50 mg DAILY PO 05/01/24 10:00 05/01/24 09:59 50 MG Atorvastatin Calcium 40 mg HS PO 05/01/24 22:00 Amlodipine Besylate 10 mg DAILY PO 05/01/24 10:00 05/01/24 09:54 10 MG Gabapentin 200 mg BID PO 05/01/24 10:00 05/01/24 09:52 200 MG Pantoprazole Sodium 40 mg DAILY IV 05/01/24 10:00 05/01/24 09:52 40 MG Bupropion HCl 75 mg BID@07,19 PO 05/01/24 07:00 05/01/24 06:20 75 MG Lisinopril 20 mg DAILY PO 05/01/24 10:00 05/01/24 09:53 20 MG Diagnostic Test (Pha) 1 strip IQ4HR 05/01/24 00:00 05/01/24 11:43 1 STRIP Insulin Human Regular IQ4HR SC 05/01/24 00:00 05/01/24 11:43 9 UNITS Dextrose 50 ml UD PRN IV 04/30/24 22:15 Sodium Chloride 1,000 ml @ 100 mls/hr Q10H IV 04/30/24 22:15 05/01/24 08:15 100 MLS/HR Ondansetron HCl 4 mg Q6HPRN PRN IV 04/30/24 22:15 Azithromycin 250 ml @ 125 mls/hr DAILY IV 05/02/24 10:00 Laboratory Results Laboratory Tests 05/01/24 08:30 Chemistry Test 05/01/24 08:30 Albumin 4.1 g/dL (3.2-4.8) Calcium Level 8.9 mg/dL (8.7-10.4) Total Protein 6.6 g/dL (5.7-8.2) Coagulation Test 05/01/24 08:30 Prothrombin Time 11.3 sec (9.3-11.8) Prothrombin Time INR 1.07 (0.9-1.15) Activated Partial Thromboplast Time 27.3 SEC (24.5-34.5) LFT Test 05/01/24 08:30 Alanine Aminotransferase (ALT) 34 U/L (7-40) Alkaline Phosphatase 124 U/L (46-116) H Aspartate Amino Transferase (AST) 22 U/L (13-40) Total Bilirubin 0.5 mg/dL (0.2-1.0) Labs and/or images reviewed: Labs reviewed by me Assessment/Plan Assessment/Plan Chest pain, rule out coronary ischemia Hypertension Dyslipidemia Type 2 diabetes mellitus, uncontrolled (Hgb A1c 12.1%) Obesity Peripheral neuropathy Depression Plan: Continuing current management. We will follow up with 2D echo. Waiting for political science chair to see the patient. Continuing with sliding scale insulin. Continuing with Norvasc aspirin and Lipitor. Continuing with gabapentin and Wellbutrin. This medical document was created using an electronic medical record system with [employer] direct computerized dictation system. Although this document has been carefully reviewed, there may still be some phonetic and typographical errors. These areas are purely typographical due to imperfections of the software programs, and do not reflect any compromise in the patient's medical care. Plan discussed with: Patient My Orders Orders - CHICHO CRAWFORD MD Procedure Category Date Status Time * Cardiology Consult CONS 05/01/24 Transmitted 13:49 Podiatry Consult CONS 05/01/24 Transmitted 13:52 Date of Service: May 01, 2024 Billing Provider: CHICHO CRAWFORD MD Common Visit Codes: [id number] INP/OBS CARE(HIGH) CHICHO CRAWFORD MD May 01, 2024 14:20
--- NOTE | 2024-05-01 16:26 | DVHSR ---
APPROVED REPORT EXAM: LIMITED Two-dimensional and M-mode echocardiogram with Doppler and color Doppler. Blood Pressure: 122/77 mmHg INDICATION HF? RISK FACTORS Obesity: Height: 6' 2", Weight: 250 DIMENSIONS LVDd4.6 (3.8-5.7cm)LA (2D)3.8 (1.9-4.0cm)Aortic Root3.6 (2.0-3.7cm) LVDs3.3 (2.5-4.0cm)LA (MM) (1.9-4.0cm)Aortic Cusp Exc2.4 (1.5-2.0cm) EF (%) 55.0 (55-70%)Rt. Atrium4.2 (1.9-4.0cm)Asc. Aorta cm IVSd1.1 (0.7-1.1cm)RV (D) (1.8-2.4cm) PWd1.0 (0.7-1.1cm) Mitral Valve MitralMitral Stenosis E wave0.70m/sMV Mean GR.mmHg A wave0.90m/sMV Peak GR.mmHg E/A ratio0.82D MVAcm2 Aortic Valve Aortic ValveAortic Stenosis V11.30m/Babak Mean GR.4mmHg V21.40m/Babak Peak GR.9mmHg LVOT Diameter3.5 (1.8-2.4cm)Doppler AVA8.93cm2 Other Information Quality : Technically LimitedRhythm : Technically limited study due to body habitus. Conclusion Technically difficult study. Sinus rhythm. Limited acoustic windows. Aortic root dilatation. Enlarged aorta. Normal left atrial size. RV size normal. Valves are normal. Left ventricular function is preserved at 60% with normal RV function. Doppler is unremarkable. Small pericardial effusion not hemodynamically significant. No masses or vegetations discernible.
[2024-05-01] MEDS: ATORVASTATIN 20 MG TAB PO SCH (22:09)
[2024-05-02] VITALS (9 sets, daily range): BP systolic 122–146; BP diastolic 72–95; PULSE 67–80; RESP 16–18; TEMP 97.5–98.1; O2SAT 92–95
[2024-05-02] MEDS: AZITHROMYCIN 500MG/ 250ML 250 ML IV SCH (10:07)
--- NOTE | 2024-05-02 23:07 | DVHPN2 ---
Subjective Patient is seen and examined at bedside. Complain chest pain. Reviewed: Care Plan, H&P, Labs, Medications, Previous Orders, Radiology Changes from previous H/P or p: No Changes Objective Vitals Vital Signs Date Time Temp Pulse Resp B/P (MAP) Pulse Ox O2 Delivery O2 Flow Rate FiO2 05/02/24 16:38 98.1 74 16 135/75 (95) 92 98.1 05/02/24 08:10 Nasal Cannula* 2 28 Intake/Output Intake and Output 05/02/24 07:00 Intake Total 1400 ml Output Total 1080 ml Balance 320 ml Intake Oral 1400 ml Output Urine Total 1080 ml # Voids 6 General Appearance: Alert, Oriented X3, Cooperative, No acute distress HEENT: Atraumatic, PERRLA, EOMI, Mucous membr. moist/pink Neck: Supple Lungs: Clear to auscultation, Normal air movement Cardiovascular: Regular rate, Normal S1, Normal S2, No murmurs, Gallops, Rubs Abdomen: Normal bowel sounds, Soft, No tenderness Neuro: Cranial nerves 3-12 NL Psych/Mental Status: Mental status NL Medications Current Medications Medications Dose Ordered Sig/[place] Route Start Time Stop Time Status Last Admin Dose Admin Acetaminophen 650 mg Q6HP PRN PO 04/30/24 22:15 Acetaminophen/ Hydrocodone Bitart 1 tab Q4HP PRN PO 04/30/24 22:15 05/02/24 18:09 1 TAB Enoxaparin Sodium 40 mg DAILY SC 05/01/24 10:00 05/02/24 10:01 40 MG Morphine Sulfate 2 mg Q30M PRN IV 04/30/24 22:15 Aspirin 81 mg DAILY PO 05/01/24 10:00 05/02/24 10:01 81 MG Sertraline HCl 50 mg DAILY PO 05/01/24 10:00 05/02/24 10:01 50 MG Atorvastatin Calcium 40 mg HS PO 05/01/24 22:00 05/02/24 21:30 40 MG Amlodipine Besylate 10 mg DAILY PO 05/01/24 10:00 05/02/24 10:01 10 MG Gabapentin 200 mg BID PO 05/01/24 10:00 05/02/24 21:30 200 MG Pantoprazole Sodium 40 mg DAILY IV 05/01/24 10:00 05/02/24 10:01 40 MG Bupropion HCl 75 mg BID@07,19 PO 05/01/24 07:00 05/02/24 18:07 75 MG Lisinopril 20 mg DAILY PO 05/01/24 10:00 05/02/24 10:00 20 MG Diagnostic Test (Pha) 1 strip IQ4HR 05/01/24 00:00 05/02/24 20:00 1 STRIP Insulin Human Regular IQ4HR SC 05/01/24 00:00 05/02/24 20:32 3 UNITS Dextrose 50 ml UD PRN IV 04/30/24 22:15 Sodium Chloride 1,000 ml @ 100 mls/hr Q10H IV 04/30/24 22:15 05/02/24 16:15 100 MLS/HR Ondansetron HCl 4 mg Q6HPRN PRN IV 04/30/24 22:15 Azithromycin 250 ml @ 125 mls/hr DAILY IV 05/02/24 10:00 05/02/24 10:07 125 MLS/HR Laboratory Results Laboratory Tests 05/01/24 08:30 Microbiology Microbiology Date/Time Source Procedure Growth Status 05/01/24 08:26 Nose MRSA Screen - Final Complete Labs and/or images reviewed: Labs reviewed by me Assessment/Plan Assessment/Plan Chest pain, rule out coronary ischemia Hypertension Dyslipidemia Type 2 diabetes mellitus, uncontrolled (Hgb A1c 12.1%) Obesity Peripheral neuropathy Depression Plan: Continuing current management. We will follow up with 2D echo. Waiting for dry cure worker to see the patient. Continuing with sliding scale insulin. Continuing with Norvasc aspirin and Lipitor. Continuing with gabapentin and Wellbutrin. This medical document was created using an electronic medical record system with M*M flurency direct computerized dictation system. Although this document has been carefully reviewed, there may still be some phonetic and typographical errors. These areas are purely typographical due to imperfections of the software programs, and do not reflect any compromise in the patient's medical care. Plan discussed with: Patient Date of Service: May 02, 2024 Billing Provider: CHICHO CRAWFORD MD Common Visit Codes: [id number] INP/OBS CARE(HIGH) CHICHO CRAWFORD MD May 02, 2024 23:07
[2024-05-03] VITALS (8 sets, daily range): BP systolic 124–150; BP diastolic 53–86; PULSE 67–80; RESP 16–19; TEMP 97.4–98.3; O2SAT 91–95
[2024-05-03 10:47] LABS: Basophils # (auto) 0.1 10 ^3/uL (0-0.2); Basophils % (auto) 0.8 % (0.0-2.0); Eosinophils # (auto) 0.3 10 ^3/uL (0-0.8); Eosinophils % (auto) 3.2 % (0.0-7.0); Hematocrit 43.1 % (41.0-53.0); Hemoglobin 15.3 g/dL (13.5-17.5); Lymphocytes # (auto) 1.3 10 ^3/uL (0.4-5.4); Lymphocytes % (auto) 16.1 % (10.0-50.0); Mean Corpuscular Hemoglobin 29.9 pg (28.0-32.0); Mean Corpuscular Hgb Conc. 35.4 g/dL (32.0-36.0); Mean Corpuscular Volume 84.4 fL (80.0-100.0); Monocytes # (auto) 0.5 10 ^3/uL (0-1.3); Monocytes % (auto) 5.9 % (0.0-12.0); Neutrophils # (auto) 5.8 10 ^3/uL (1.6-8.6); Platelet Count (auto) 210 10^3/uL (140-450); Red Cell Distribution Width 13.4 % (11.8-14.3); White Blood Cell 7.8 10^3/uL (4.4-10.8)
[2024-05-03 10:54] LABS: Anion Gap 8 (5-15); Carbon Dioxide 27 mmol/L (20-31); Chloride 101 mmol/L (98-107); Potassium 4.1 mmol/L (3.5-5.1); Sodium 136 mmol/L (136-145)
[2024-05-03 10:56] LABS: Calcium 9.4 mg/dL (8.7-10.4)
[2024-05-03 11:00] LABS: BUN/Creatinine Ratio 9.5 (10.0-20.0); Blood Urea Nitrogen 9 mg/dL (9-23)
[2024-05-03 11:01] LABS: Glucose 248 mg/dL (74-106)
--- NOTE | 2024-05-03 11:27 | DVHINCON2 ---
[facility] 05/03/24 1127: Date Seen: May 03, 2024 Referring Physician MD Erica Reason for Consultation Chest pain History of Present Illness This is a 58-year-old male patient who presents to the emergency room with chief complaint of chest pain. The patient reports that the chest pain began approximately three days ago. He describes it as unprovoked, intermittent, sharp in nature, and left-sided without radiation. He came to the emergency room for further evaluation. Initial twelve electrocardiogram reveals normal s inus rhythm without any significant ST segment changes. Troponin levels have been negative. Significant past medical history includes hypertension, dyslipidemia, type 2 diabetes mellitus, hepatitis-C, tobacco use and obesity. Past Medical History Past medical history reviewed. No other significant than mentioned above. Past Surgical History Denies Family History: Patient reports no known family medical history. Family History Family history reviewed. Social History Patient has a eight pack-year history, smokes approximately one pack per week now Denies any illicit drug use Denies any alcohol use Allergies: Coded Allergies: NO KNOWN ALLERGIES (Unverified , 10/29/23) Home Meds Active Scripts Gabapentin (Gabapentin) 100 Mg Cap, 1 CAP PO TID, #90 CAP 5 Refills Prov:CHICHO CRAWFORD MD 11/04/23 Hydrocodone-Acetaminophen (Hydrocodone Bitartrate/AC 5-325 mg) 1 Tab Tab, 1 TAB PO Q6HPRN PRN, #20 TAB Prov:CHICHO CRAWFORD MD 11/04/23 Lisinopril (Lisinopril) 20 Mg Tab, 1 TAB PO DAILY, #30 TAB 5 Refills Prov:CHICHO CRAWFORD MD 11/04/23 Metformin Hydrochloride (METFORMIN HCL ER) 500 Mg Tab, 500 MG PO BID, #60 TAB 5 Refills Prov:CHICHO CRAWFORD MD 11/04/23 Amoxicillin & Pot Clavulanate (AUGMENTIN TABLET) 875 Mg Tb, 875 MG PO BID, #28 TAB Prov:CHICHO CRAWFORD MD 11/04/23 Home Meds Home medications reviewed. Review of Systems Constitutional: No symptom reported Ears, Nose, & Throat: No symptom reported Eyes: No symptom reported Neurological: No symptoms reported Pulmonary/Respiratory: No symptoms reported Cardiovascular: Chest pain Gastrointestinal: No symptom reported Genitourinary: No symptom reported Musculoskeletal: No symptom reported Skin: No symptom reported Psychiatric: No symptom reported Endocrine: No symptom reported Hematologic/Lymphatic: No symptom reported Vital Signs Vital Signs Date Time Temp Pulse Resp B/P (MAP) Pulse Ox O2 Delivery O2 Flow Rate FiO2 05/03/24 10:03 145/86 05/03/24 05:00 97.8 71 18 92 97.8 05/02/24 20:00 Nasal Cannula* 2 28 Physical Exam General Appearance: Cooperative. Obese Pulmonary/Respiratory: Clear, bilateral breaths sounds. Cardiovascular/Chest: Regular rate and rhythm. Peripheral Pulses: 2+ Radial (R). 2+ Radial (L). 2+ Pedal (R). 2+ Pedal (L) Abdominal Exam: Normal bowel sounds. Ankle Exam: Negative ankle edema Lower extremities: Negative lower extremity edema Neuro/Mental Status: A/OX4, coherent. Thoughts/Psych: Normal thought pattern. Appropriate mood and affect. Good judgment and insight. Appearance: No acute distress. Skin Exam: Normal inspection. Normal color. Warm and dry. Labs/Diagnostic Data Labs Test 05/03/24 10:26 05/03/24 09:33 05/01/24 08:30 05/01/24 08:26 Range/Units White Blood Count 7.8 4.4-10.8 10^3/uL Red Blood Count 5.10 4.5-5.90 10^6/uL Hemoglobin 15.3 13.5-17.5 g/dL Hematocrit 43.1 41.0-53.0 % Mean Corpuscular Volume 84.4 80.0-100.0 fL Mean Corpuscular Hemoglobin 29.9 28.0-32.0 pg Mean Corpuscular Hemoglobin Concent 35.4 32.0-36.0 g/dL Red Cell Distribution Width 13.4 11.8-14.3 % Platelet Count 210 140-450 10^3/uL Mean Platelet Volume 7.1 6.9-10.8 fL Neutrophils (%) (Auto) 74.0 37.0-80.0 % Lymphocytes (%) (Auto) 16.1 10.0-50.0 % Monocytes (%) (Auto) 5.9 0.0-12.0 % Eosinophils (%) (Auto) 3.2 0.0-7.0 % Basophils (%) (Auto) 0.8 0.0-2.0 % Neutrophils # (Auto) 5.8 1.6-8.6 10 ^3/uL Lymphocytes # (Auto) 1.3 0.4-5.4 10 ^3/uL Monocytes # (Auto) 0.5 0-1.3 10 ^3/uL Eosinophils # (Auto) 0.3 0-0.8 10 ^3/uL Basophils # (Auto) 0.1 0-0.2 10 ^3/uL Nucleated Red Blood Cells 0.0 % Sodium Level 136 136-145 mmol/L Potassium Level 4.1 3.5-5.1 mmol/L Chloride Level 101 98-107 mmol/L Carbon Dioxide Level 27 20-31 mmol/L Anion Gap 8 5-15 Blood Urea Nitrogen 9 9-23 mg/dL Creatinine 0.95 0.700-1.30 mg/dL Glomerular Filtration Rate Calc 92 >90 mL/min BUN/Creatinine Ratio 9.5 L 10.0-20.0 Serum Glucose 248 H 74-106 mg/dL Calcium Level 9.4 8.7-10.4 mg/dL POC Glucose 233 H 70-106 mg/dl Prothrombin Time 11.3 9.3-11.8 sec Prothrombin Time INR 1.07 0.9-1.15 Activated Partial Thromboplast Time 27.3 24.5-34.5 SEC Total Bilirubin 0.5 0.2-1.0 mg/dL Aspartate Amino Transferase (AST) 22 13-40 U/L Alanine Aminotransferase (ALT) 34 7-40 U/L Alkaline Phosphatase 124 H 46-116 U/L C-Reactive Protein High Sensitivity 0.75 <1.0 mg/dL Total Protein 6.6 5.7-8.2 g/dL Albumin 4.1 3.2-4.8 g/dL Influenza Type A Antigen Negative Negative Influenza Type B Antigen Negative Negative SARS-CoV-2 Antigen (Rapid) Negative NEGATIVE Test 04/30/24 13:31 Range/Units Hemoglobin A1c 12.1 H <5.7 % A1C Direct Bilirubin 0.1 <0.3 mg/dL Troponin I High Sensitivity < 3 L </=54 ng/L Triglycerides Level 280 H < 150 mg/dL Cholesterol Level 132 < 200 mg/dL LDL Cholesterol 72 < 100 mg/dL HDL Cholesterol 31 L 40-59 mg/dL Thyroid Stimulating Hormone (TSH) 1.25 0.55-4.78 uIU/mL Microbiology Date/Time Source Procedure Growth Status 05/01/24 08:26 Nose MRSA Screen - Final Complete Assessment Chest pain, rule out coronary ischemia Hypertension Dyslipidemia Type 2 diabetes mellitus, uncontrolled (Hgb A1c 12.1%) Obesity Plan/Recommendation We will continue with the following plan/recommendations (Dr. Lemus): * Echocardiogram reveals EF 60% with a small pericardial effusion not hemodynam ically significant * Chest pain protocol * HEART score: 4 points (moderate score) * Blood pressure control and lipid-lowering agent * Close Cardiac surveillance * Nuclear stress test Case discussed with . Given the patient's clinical presentation and elevated HEART score, we will proceed with scheduling the patient for a nuclear stress test. In the meantime, continue with the blood pressure control, and lipid-lowering agent. Thank you for allowing us to care for this patient. Please call with any questions or concerns. Critical care time spent: 41 minutes This medical document was created using an electronic medical record system with voice recognition software and computerized dictation system. Although this document has been carefully reviewed, there might still be some phonetic and typographical errors. Occasional wrong-word or ``sound-alike substitutions may have occurred due to the inherent limitations of voice recognition software. These areas are purely typographical due to imperfections of the software programs and do not reflect any compromise in the patient's medical care. Please read the chart carefully and recognize, using context, where these substitutions have occurred. Plan discussed with: Patient NYHA Physical activity limitations: NA Date of Service: May 03, 2024 Billing Provider: [facility] Cardiology Common Codes: [id number] INP/OBS CARE (High) Cardiology Consultation Codes: [id number] CONSULT <45MIN SUNNY LEMUS MD 05/03/24 1518: Family History: Patient reports no known family medical history. Allergies: Coded Allergies: NO KNOWN ALLERGIES (Unverified , 10/29/23) Home Meds Active Scripts Gabapentin (Gabapentin) 100 Mg Cap, 1 CAP PO TID, #90 CAP 5 Refills Prov:CHICHO CRAWFORD MD 11/04/23 Hydrocodone-Acetaminophen (Hydrocodone Bitartrate/AC 5-325 mg) 1 Tab Tab, 1 TAB PO Q6HPRN PRN, #20 TAB Prov:CHICHO CRAWFORD MD 11/04/23 Lisinopril (Lisinopril) 20 Mg Tab, 1 TAB PO DAILY, #30 TAB 5 Refills Prov:CHICHO CRAWFORD MD 11/04/23 Metformin Hydrochloride (METFORMIN HCL ER) 500 Mg Tab, 500 MG PO BID, #60 TAB 5 Refills Prov:CHICHO CRAWFORD MD 11/04/23 Amoxicillin & Pot Clavulanate (AUGMENTIN TABLET) 875 Mg Tb, 875 MG PO BID, #28 TAB Prov:CHICHO CRAWFORD MD 11/04/23 Plan/Recommendation totally uncontrolled DM ACS ruled out stress mpi planned pt seen and examined by me Plan discussed with: Patient FLORES,JOSEJOVANNY SIN May 03, 2024 11:27 SUNNY LEMUS MD May 03, 2024 15:18
--- NOTE | 2024-05-03 13:15 | ECG ---
[facility] Test Date: 2024-04-30 Test Time: 21:36:03 Pat Name: YOUSIF EASON Department: TRIAGE Room: 0248T B Gender: M Med Specialist: NANCY : 1965 Requested By: SHIREEN LITTLEJOHN Order Number: [id number] Reading MD: Donte Beaulieu Measurements Intervals [place] Rate: 88 P: 83 AR: 188 QRS: 84 QRSD: 98 T: 75 QT: 359 QTc: 435 Interpretive Statements Sinus rhythm Consider left atrial enlargement Borderline right axis deviation Electronically Signed On 05-06-2024 13:11:27 PDT by Donte Beaulieu Please click the below link to view image of tracing.
--- NOTE | 2024-05-03 13:51 | DVHINCON2 ---
Date Seen: May 03, 2024 Reason for Consultation Right hallux wound History of Present Illness This is a 58-year-old male with past medical history of hypertension, diabetes with peripheral neuropathy, and hepatitis-C were is came to the hospital due to chest pain since 3 days. Pain is localized in left side, constant, 10/10, stabbing in nature, with no clear exacerbating or relieving factor. He also reports fever, nausea, vomiting, palpitation, bilateral upper limb numbness and generalized weakness. He denies shortness of breath, abdominal, or any recent bowel and bladder habit changes. Past Medical History See H&P Past Surgical History See H&P Family History: Patient reports no known family medical history. Allergies: Coded Allergies: NO KNOWN ALLERGIES (Unverified , 10/29/23) Home Meds Active Scripts Gabapentin (Gabapentin) 100 Mg Cap, 1 CAP PO TID, #90 CAP 5 Refills Prov:CHICHO CRAWFORD MD 11/04/23 Hydrocodone-Acetaminophen (Hydrocodone Bitartrate/AC 5-325 mg) 1 Tab Tab, 1 TAB PO Q6HPRN PRN, #20 TAB Prov:CHICHO CRAWFORD MD 11/04/23 Lisinopril (Lisinopril) 20 Mg Tab, 1 TAB PO DAILY, #30 TAB 5 Refills Prov:CHICHO CRAWFORD MD 11/04/23 Metformin Hydrochloride (METFORMIN HCL ER) 500 Mg Tab, 500 MG PO BID, #60 TAB 5 Refills Prov:CHICHO CRAWFORD MD 11/04/23 Amoxicillin & Pot Clavulanate (AUGMENTIN TABLET) 875 Mg Tb, 875 MG PO BID, #28 TAB Prov:CHICHO CRAWFORD MD 11/04/23 Vital Signs Vital Signs Date Time Temp Pulse Resp B/P (MAP) Pulse Ox O2 Delivery O2 Flow Rate FiO2 05/03/24 10:03 145/86 05/03/24 08:00 74 05/03/24 08:00 17 94 Nasal Cannula* 2 28 05/03/24 05:00 97.8 97.8 Physical Exam DERMATOLOGIC EXAM: - Skin is dry and cool to the touch dry bilaterally. - Nails 1-5 of the bilateral foot are thickened, discolored, dystrophic, and tender to palpate with subungual debris - Hair loss noted to bilateral feet Wound #1: Location: Right medial hallux Measurements: Length 0.3 cm x width 0.3 cm x depth 0.3 cm. Wound margins: Hyperkeratotic. Wound base: Full thickness. General Appearance: Healthy and bleeding. Probes to Bone: No Purulent drainage: No Serous drainage: No Erythema: Absent VASCULAR EXAM: - DP and PT pulses are palpable bilaterally. - HAIR OR BE[employer]GER is brisk to all digits. - Feet are cool to touch compared to lower legs bilaterally. NEUROLOGIC EXAM: - Normal light touch sensation to the superficial peroneal, deep peroneal, sural, saphenous, and tibial nerve branches. - Protective sensation is diminished as tested with a 5.07 10g [place] bilaterally. MUSCULOSKELETAL EXAM: - No gross deformities - Muscle strength is 5/5 and active motion is pain-free and symmetrical bilaterally - No pain or crepitation with passive range of motion bilaterally to all major pedal joints Labs/Diagnostic Data Labs Test 05/03/24 11:38 05/03/24 10:26 05/01/24 08:30 05/01/24 08:26 Range/Units POC Glucose 244 H 70-106 mg/dl White Blood Count 7.8 4.4-10.8 10^3/uL Red Blood Count 5.10 4.5-5.90 10^6/uL Hemoglobin 15.3 13.5-17.5 g/dL Hematocrit 43.1 41.0-53.0 % Mean Corpuscular Volume 84.4 80.0-100.0 fL Mean Corpuscular Hemoglobin 29.9 28.0-32.0 pg Mean Corpuscular Hemoglobin Concent 35.4 32.0-36.0 g/dL Red Cell Distribution Width 13.4 11.8-14.3 % Platelet Count 210 140-450 10^3/uL Mean Platelet Volume 7.1 6.9-10.8 fL Neutrophils (%) (Auto) 74.0 37.0-80.0 % Lymphocytes (%) (Auto) 16.1 10.0-50.0 % Monocytes (%) (Auto) 5.9 0.0-12.0 % Eosinophils (%) (Auto) 3.2 0.0-7.0 % Basophils (%) (Auto) 0.8 0.0-2.0 % Neutrophils # (Auto) 5.8 1.6-8.6 10 ^3/uL Lymphocytes # (Auto) 1.3 0.4-5.4 10 ^3/uL Monocytes # (Auto) 0.5 0-1.3 10 ^3/uL Eosinophils # (Auto) 0.3 0-0.8 10 ^3/uL Basophils # (Auto) 0.1 0-0.2 10 ^3/uL Nucleated Red Blood Cells 0.0 % Sodium Level 136 136-145 mmol/L Potassium Level 4.1 3.5-5.1 mmol/L Chloride Level 101 98-107 mmol/L Carbon Dioxide Level 27 20-31 mmol/L Anion Gap 8 5-15 Blood Urea Nitrogen 9 9-23 mg/dL Creatinine 0.95 0.700-1.30 mg/dL Glomerular Filtration Rate Calc 92 >90 mL/min BUN/Creatinine Ratio 9.5 L 10.0-20.0 Serum Glucose 248 H 74-106 mg/dL Calcium Level 9.4 8.7-10.4 mg/dL Prothrombin Time 11.3 9.3-11.8 sec Prothrombin Time INR 1.07 0.9-1.15 Activated Partial Thromboplast Time 27.3 24.5-34.5 SEC Total Bilirubin 0.5 0.2-1.0 mg/dL Aspartate Amino Transferase (AST) 22 13-40 U/L Alanine Aminotransferase (ALT) 34 7-40 U/L Alkaline Phosphatase 124 H 46-116 U/L C-Reactive Protein High Sensitivity 0.75 <1.0 mg/dL Total Protein 6.6 5.7-8.2 g/dL Albumin 4.1 3.2-4.8 g/dL Influenza Type A Antigen Negative Negative Influenza Type B Antigen Negative Negative SARS-CoV-2 Antigen (Rapid) Negative NEGATIVE Test 04/30/24 13:31 Range/Units Hemoglobin A1c 12.1 H <5.7 % A1C Direct Bilirubin 0.1 <0.3 mg/dL Troponin I High Sensitivity < 3 L </=54 ng/L Triglycerides Level 280 H < 150 mg/dL Cholesterol Level 132 < 200 mg/dL LDL Cholesterol 72 < 100 mg/dL HDL Cholesterol 31 L 40-59 mg/dL Thyroid Stimulating Hormone (TSH) 1.25 0.55-4.78 uIU/mL Microbiology Date/Time Source Procedure Growth Status 05/01/24 08:26 Nose MRSA Screen - Final Complete Problems(with codes): (1) Diabetic foot ulcer (2) Cellulitis of right lower extremity (3) Unstable angina (4) Weakness Plan/Recommendation ASSESSMENT: Patient is a 58-year-old seen for hallux wound as an inpatient PLAN: - The patients chart was reviewed, clinical findings were discussed with the patient, the etiologies of the conditions were discussed in detail, and a treatment plan was agreed to at this time, with both oral and written instructions provided. - reviewed advanced imaging - discussed that the wound appears to be superficial - no surgical intervention recommended at this point - can dress with Iodosorb and a Band-Aid - we will follow up with me as an outpatient All questions were answered and concerns addressed to the patient's satisfaction. The patient was given the phone number to the clinic and was told how to make contact with the clinic should any concerns or questions arise. Patient understands that if any questions or concerns arise prior to the next appointment, we should be contacted immediately. FOLLOW-UP: Continue to follow while inpatient Plan discussed with: Patient Date of Service: May 03, 2024 Billing Provider: MACY RAMIREZ DPM Common Visit Codes: CONSULT ONLY Consultation Codes: [id number] CONSULT <80MIN MACY RAMIREZ DPM May 03, 2024 13:51
[2024-05-04] VITALS (7 sets, daily range): BP systolic 120–140; BP diastolic 81–85; PULSE 63–76; RESP 16–22; TEMP 97.4–98; O2SAT 92–98
[2024-05-04] MEDS: REGADENOSON 0.4 MG/5 ML SYRG IV ONE ×2 (09:20)
--- NOTE | 2024-05-04 12:38 | DVHPN2 ---
Reviewed: Care Plan, H&P, Labs, Medications, Previous Orders, Radiology Changes from previous H/P or p: No Changes Objective Vitals Vital Signs Date Time Temp Pulse Resp B/P (MAP) Pulse Ox O2 Delivery O2 Flow Rate FiO2 05/04/24 10:13 136/81 05/04/24 09:00 97.4 74 22 94 97.4 05/04/24 08:00 Nasal Cannula* 2 28 Intake/Output Intake and Output 05/04/24 07:00 Intake Total 3014 ml Output Total 5275 ml Balance -2261 ml Intake Oral 2014 ml IV Total 1000 ml Output Urine Total 5275 ml # Voids 1 Medications Current Medications Medications Dose Ordered Sig/[place] Route Start Time Stop Time Status Last Admin Dose Admin Acetaminophen 650 mg Q6HP PRN PO 04/30/24 22:15 Acetaminophen/ Hydrocodone Bitart 1 tab Q4HP PRN PO 04/30/24 22:15 05/02/24 18:09 1 TAB Enoxaparin Sodium 40 mg DAILY SC 05/01/24 10:00 05/04/24 10:12 40 MG Morphine Sulfate 2 mg Q30M PRN IV 04/30/24 22:15 Aspirin 81 mg DAILY PO 05/01/24 10:00 05/04/24 10:13 81 MG Sertraline HCl 50 mg DAILY PO 05/01/24 10:00 05/04/24 10:13 50 MG Atorvastatin Calcium 40 mg HS PO 05/01/24 22:00 05/03/24 21:15 40 MG Amlodipine Besylate 10 mg DAILY PO 05/01/24 10:00 05/04/24 10:12 10 MG Gabapentin 200 mg BID PO 05/01/24 10:00 05/04/24 10:12 200 MG Pantoprazole Sodium 40 mg DAILY IV 05/01/24 10:00 05/04/24 10:12 40 MG Bupropion HCl 75 mg BID@07,19 PO 05/01/24 07:00 05/04/24 06:46 75 MG Lisinopril 20 mg DAILY PO 05/01/24 10:00 05/04/24 10:13 20 MG Diagnostic Test (Pha) 1 strip IQ4HR 05/01/24 00:00 05/04/24 11:31 1 STRIP Insulin Human Regular IQ4HR SC 05/01/24 00:00 05/04/24 11:31 9 UNITS Dextrose 50 ml UD PRN IV 04/30/24 22:15 Sodium Chloride 1,000 ml @ 100 mls/hr Q10H IV 04/30/24 22:15 05/03/24 20:20 100 MLS/HR Ondansetron HCl 4 mg Q6HPRN PRN IV 04/30/24 22:15 Azithromycin 250 ml @ 125 mls/hr DAILY IV 05/02/24 10:00 05/04/24 10:11 125 MLS/HR Laboratory Results Laboratory Tests 05/03/24 10:26 Microbiology Microbiology Date/Time Source Procedure Growth Status 05/01/24 08:26 Nose MRSA Screen - Final Complete Labs and/or images reviewed: Labs reviewed by me, Image(s) reviewed by me Assessment/Plan Assessment/Plan Chest pain, rule out coronary ischemia aspirin Lipitor cardiology consult appreciated echo 60 % ejection fraction, Cardiolite stress test pending Hypertension: Amlodipine Dyslipidemia: Lipitor Type 2 diabetes mellitus, uncontrolled (Hgb A1c 12.1%) Obesity Peripheral neuropathy: Gabapentin Depression: Wellbutrin Plan discussed with: Patient Date of Service: May 04, 2024 Billing Provider: TERRI LAZAR MD Common Visit Codes: [id number] INP/OBS CARE(HIGH) TERRI LAZAR MD May 04, 2024 12:38
--- NOTE | 2024-05-04 17:51 | MEDREC ---
[facility] ASP Intervention Section I [facility] ASP Intervention: Review courses of therapy (PLEASE CONSIDER D/C ANTIBIOTIC IN ABSENCE OF BACTERIAL INFECTION ) OPHELIA LONDON PHARMACIST May 04, 2024 17:51
[2024-05-04] MEDS: ACETAMINOPHEN 325 MG TAB PO PRN (20:55)
[2024-05-05] VITALS (7 sets, daily range): BP systolic 117–134; BP diastolic 65–87; PULSE 57–80; RESP 18–19; TEMP 36.7; O2SAT 95–97
--- NOTE | 2024-05-05 10:13 | DVHPN2 ---
Reviewed: Care Plan, H&P, Labs, Medications, Previous Orders, Radiology Changes from previous H/P or p: No Changes Objective Vitals Vital Signs Date Time Temp Pulse Resp B/P (MAP) Pulse Ox O2 Delivery O2 Flow Rate FiO2 05/05/24 08:18 134/87 05/05/24 05:00 98.0 57 19 96 98.0 05/04/24 20:00 Nasal Cannula* 2 28 Intake/Output Intake and Output 05/05/24 07:00 Intake Total 1465 ml Output Total 2345 ml Balance -880 ml Intake Oral 1465 ml Output Urine Total 2345 ml # Bowel Movements 1 General Appearance: Alert, Oriented X3, Cooperative, No acute distress HEENT: Atraumatic, PERRLA, EOMI, Mucous membr. moist/pink Neck: Supple Lungs: Clear to auscultation, Normal air movement Cardiovascular: Regular rate, Normal S1, Normal S2, No murmurs, Gallops, Rubs Abdomen: Normal bowel sounds, Soft, No tenderness Neuro: Cranial nerves 3-12 NL Psych/Mental Status: Mental status NL Medications Current Medications Medications Dose Ordered Sig/[place] Route Start Time Stop Time Status Last Admin Dose Admin Acetaminophen 650 mg Q6HP PRN PO 04/30/24 22:15 05/04/24 20:55 650 MG Acetaminophen/ Hydrocodone Bitart 1 tab Q4HP PRN PO 04/30/24 22:15 05/05/24 08:17 1 TAB Enoxaparin Sodium 40 mg DAILY SC 05/01/24 10:00 05/05/24 08:20 40 MG Morphine Sulfate 2 mg Q30M PRN IV 04/30/24 22:15 Aspirin 81 mg DAILY PO 05/01/24 10:00 05/05/24 08:16 81 MG Sertraline HCl 50 mg DAILY PO 05/01/24 10:00 05/05/24 08:24 50 MG Atorvastatin Calcium 40 mg HS PO 05/01/24 22:00 05/04/24 20:56 40 MG Amlodipine Besylate 10 mg DAILY PO 05/01/24 10:00 05/05/24 08:16 10 MG Gabapentin 200 mg BID PO 05/01/24 10:00 05/05/24 08:18 200 MG Pantoprazole Sodium 40 mg DAILY IV 05/01/24 10:00 05/05/24 08:18 40 MG Bupropion HCl 75 mg BID@07,19 PO 05/01/24 07:00 05/05/24 06:06 75 MG Lisinopril 20 mg DAILY PO 05/01/24 10:00 05/05/24 08:18 20 MG Diagnostic Test (Pha) 1 strip IQ4HR 05/01/24 00:00 05/05/24 08:19 1 STRIP Insulin Human Regular IQ4HR SC 05/01/24 00:00 05/05/24 08:19 3 UNITS Dextrose 50 ml UD PRN IV 04/30/24 22:15 Sodium Chloride 1,000 ml @ 100 mls/hr Q10H IV 04/30/24 22:15 05/05/24 08:29 100 MLS/HR Ondansetron HCl 4 mg Q6HPRN PRN IV 04/30/24 22:15 Azithromycin 250 ml @ 125 mls/hr DAILY IV 05/02/24 10:00 05/05/24 08:18 125 MLS/HR Laboratory Results Laboratory Tests 05/03/24 10:26 Microbiology Microbiology Date/Time Source Procedure Growth Status 05/01/24 08:26 Nose MRSA Screen - Final Complete Labs and/or images reviewed: Labs reviewed by me, Image(s) reviewed by me Assessment/Plan Assessment/Plan Chest pain, rule out coronary ischemia aspirin Lipitor cardiology consult appreciated echo 60 % ejection fraction, Cardiolite stress test pending Hypertension: Amlodipine Dyslipidemia: Lipitor Type 2 diabetes mellitus, uncontrolled (Hgb A1c 12.1%) Obesity Peripheral neuropathy: Gabapentin Depression: Wellbutrin Right 1st toe infection: Consult by Dr. Ya appreciated, advised outpatient follow up. We will DC home if stress test is neg Plan discussed with: Patient Date of Service: May 05, 2024 Billing Provider: TERRI LAZAR MD Common Visit Codes: [id number] INP/OBS CARE(HIGH) TERRI LAZAR MD May 05, 2024 10:13
--- NOTE | 2024-05-05 12:11 | DVHSR ---
APPROVED REPORT Exam: Nuclear Stress Test Indication: chest pain BMI: 0 Medical History Medical History: HTN, DM, SMOKER, OBESITY Stress Test Details Stress Test: Pharmacologic stress testing performed using 0.4 mg of regadenoson per 5 mL given IV ov er 10 seconds. HR Resting HR: 73 bpmMax Heart Rate (APMHR): 160.027882 bpm Max HR Achieved: 87 bpmTarget HR (85% APMHR): 136.597187 bpm % of APMHR: 54.38 Recovery HR: 81 bpm BP Resting BP: 122/81 mmHg Recovery BP: 135/77 mmHg ECG Resting ECG: Sinus Rhythm Clinical Reason for Termination: Completed protocol Stress ECG Conclusion lvef 60% normal perfusion scan gi artifact noted NM EXAM: Myocardial Perfusion REST/STRESS Imaging Protocol: Rest Tc-99m/Stress Tc-99m 1 day Resting Data Rest SPECT myocardial perfusion imaging was performed in supine position 60 minutes following the int ravenous injection of 11.6 mCi of Tc-99m Sestamibi. Time of rest injection: 735 Date: 05/04/2024 Time of rest imagin Date: 05/04/2024 Administration Route: IV Administration Site: Right AC Pharmacologic Stress Pharmacologic stress test was performed by injecting Regadenoson 0.4 mg IV push followed by the intra venous injection of 34.3 mCi of Tc-99m Sestamibi. Time of stress injection: 911 Date: 05/04/2024 Time of stress imagin Date: 05/04/2024 Administration Route: IV Administration Site: Right AC Gated Stress SPECT was performed 60 minutes after stress injection. The images were gated to evaluate regional wall motion and calculate left ventricular ejection fracti on. Stress only was performed in the Supine position. Nuclear Conclusion Nuclear Findings: negative for ischemia lvef 60% normal perfusion scan gi artifact noted
--- NOTE | 2024-05-05 12:41 | DVHPN2 ---
Consult Progress Note Date Seen: May 05, 2024 Subjective Review of Systems: CVS:Normal, RESPIRATORY:Normal, NEURO:Normal Objective vital signs Vital Sign Date Time Temp Pulse Resp B/P (MAP) Pulse Ox O2 Delivery O2 Flow Rate FiO2 05/05/24 08:30 97.9 62 18 134/87 (103) 95 97.9 05/05/24 07:30 Nasal Cannula* 2 28 Total Intake and Output 05/04/24 05/04/24 05/05/24 15:00 23:00 07:00 Intake Total 180 ml 845 ml 440 ml Output Total 1525 ml 820 ml Balance 180 ml -680 ml -380 ml medications Current Medications Medications Dose Ordered Sig/[place] Route Start Time Stop Time Status Last Admin Dose Admin Acetaminophen 650 mg Q6HP PRN PO 04/30/24 22:15 05/04/24 20:55 650 MG Acetaminophen/ Hydrocodone Bitart 1 tab Q4HP PRN PO 04/30/24 22:15 05/05/24 08:17 1 TAB Enoxaparin Sodium 40 mg DAILY SC 05/01/24 10:00 05/05/24 08:20 40 MG Morphine Sulfate 2 mg Q30M PRN IV 04/30/24 22:15 Aspirin 81 mg DAILY PO 05/01/24 10:00 05/05/24 08:16 81 MG Sertraline HCl 50 mg DAILY PO 05/01/24 10:00 05/05/24 08:24 50 MG Atorvastatin Calcium 40 mg HS PO 05/01/24 22:00 05/04/24 20:56 40 MG Amlodipine Besylate 10 mg DAILY PO 05/01/24 10:00 05/05/24 08:16 10 MG Gabapentin 200 mg BID PO 05/01/24 10:00 05/05/24 08:18 200 MG Pantoprazole Sodium 40 mg DAILY IV 05/01/24 10:00 05/05/24 08:18 40 MG Bupropion HCl 75 mg BID@07,19 PO 05/01/24 07:00 05/05/24 06:06 75 MG Lisinopril 20 mg DAILY PO 05/01/24 10:00 05/05/24 08:18 20 MG Diagnostic Test (Pha) 1 strip IQ4HR 05/01/24 00:00 05/05/24 12:10 1 STRIP Insulin Human Regular IQ4HR SC 05/01/24 00:00 05/05/24 12:10 9 UNITS Dextrose 50 ml UD PRN IV 04/30/24 22:15 Sodium Chloride 1,000 ml @ 100 mls/hr Q10H IV 04/30/24 22:15 05/05/24 08:29 100 MLS/HR Ondansetron HCl 4 mg Q6HPRN PRN IV 04/30/24 22:15 Examination: LUNGS:Normal, CVS:Normal, NEURO:Normal laboratory and microbiology Laboratory Tests 05/03/24 10:26 Test 05/03/24 10:26 Range/Units Serum Glucose 248 H 74-106 mg/dL Problem List/Assessment/Plan Problem List/Assessment/Plan Chest pain, rule out coronary ischemia Type 2 diabetes mellitus, uncontrolled (Hgb A1c 12.1%) Hypertension Dyslipidemia Obesity Plan/Recommendation (Dr. Beaulieu) * Echocardiogram reveals EF 60% * Small pericardial effusion not hemodynamically significant * Cardiolite stress test negative for ischemia * Blood pressure control and lipid-lowering agent There is no further cardiac work-up indicated at this time. Kindly call if in need to re-consult. Thank you for allowing us to care for this patient. This medical document was created using an electronic medical record system with voice recognition software and computerized dictation system. Although this document has been carefully reviewed, there might still be some phonetic and typographical errors. Occasional wrong-word or ``sound-alike substitutions may have occurred due to the inherent limitations of voice recognition software. These areas are purely typographical due to imperfections of the software programs and do not reflect any compromise in the patient's medical care. Please read the chart carefully and recognize, using context, where these substitutions have occurred. Plan discussed with: Patient, Other Dietary Evaluation Review Comments: 1. Continue Cardaic diet as tolerated 2. Continue frequent POC BG checks for glycemic control; goal <180 mg/dl 3. Pt will likely benfit from DM education prior to D/C given A1c 12.1%, will provide as able; suggest outpatient FU counseling w/ [facility] for additional support Expected Outcomes/Goals: Improved glycemic control, maintain adequate oral intake. Date of Service: May 05, 2024 Billing Provider: CANDY FIGUEROA Cardiology Common Codes: [id number] INP/OBS CARE(Mod) CANDY FIGUEROA May 05, 2024 12:41
[2024-05-05] MEDS ORDERED: HYDR-4902 PO (13:23)
[2024-05-05] MEDS ORDERED: CLIN1CAP70 PO (13:23)
--- NOTE | 2024-05-05 13:29 | DVHDS2 ---
Discharge Summary Date of Admission Apr 30, 2024 at 22:02 Date of Discharge: May 05, 2024 Admitting Diagnosis Chest pain Wounds: None Labs/Diagnostic Data: Laboratory Results Test 05/05/24 11:53 05/03/24 10:26 05/01/24 08:30 05/01/24 08:26 POC Glucose 256 mg/dl (70-106) White Blood Count 7.8 10^3/uL (4.4-10.8) Red Blood Count 5.10 10^6/uL (4.5-5.90) Hemoglobin 15.3 g/dL (13.5-17.5) Hematocrit 43.1 % (41.0-53.0) Mean Corpuscular Volume 84.4 fL (80.0-100.0) Mean Corpuscular Hemoglobin 29.9 pg (28.0-32.0) Mean Corpuscular Hemoglobin Concent 35.4 g/dL (32.0-36.0) Red Cell Distribution Width 13.4 % (11.8-14.3) Platelet Count 210 10^3/uL (140-450) Mean Platelet Volume 7.1 fL (6.9-10.8) Neutrophils (%) (Auto) 74.0 % (37.0-80.0) Lymphocytes (%) (Auto) 16.1 % (10.0-50.0) Monocytes (%) (Auto) 5.9 % (0.0-12.0) Eosinophils (%) (Auto) 3.2 % (0.0-7.0) Basophils (%) (Auto) 0.8 % (0.0-2.0) Neutrophils # (Auto) 5.8 10 ^3/uL (1.6-8.6) Lymphocytes # (Auto) 1.3 10 ^3/uL (0.4-5.4) Monocytes # (Auto) 0.5 10 ^3/uL (0-1.3) Eosinophils # (Auto) 0.3 10 ^3/uL (0-0.8) Basophils # (Auto) 0.1 10 ^3/uL (0-0.2) Nucleated Red Blood Cells 0.0 % Sodium Level 136 mmol/L (136-145) Potassium Level 4.1 mmol/L (3.5-5.1) Chloride Level 101 mmol/L (98-107) Carbon Dioxide Level 27 mmol/L (20-31) Anion Gap 8 (5-15) Blood Urea Nitrogen 9 mg/dL (9-23) Creatinine 0.95 mg/dL (0.700-1.30) Glomerular Filtration Rate Calc 92 mL/min (>90) BUN/Creatinine Ratio 9.5 (10.0-20.0) Serum Glucose 248 mg/dL (74-106) Calcium Level 9.4 mg/dL (8.7-10.4) Prothrombin Time 11.3 sec (9.3-11.8) Prothrombin Time INR 1.07 (0.9-1.15) Activated Partial Thromboplast Time 27.3 SEC (24.5-34.5) Total Bilirubin 0.5 mg/dL (0.2-1.0) Aspartate Amino Transferase (AST) 22 U/L (13-40) Alanine Aminotransferase (ALT) 34 U/L (7-40) Alkaline Phosphatase 124 U/L (46-116) C-Reactive Protein High Sensitivity 0.75 mg/dL (<1.0) Total Protein 6.6 g/dL (5.7-8.2) Albumin 4.1 g/dL (3.2-4.8) Influenza Type A Antigen Negative (Negative) Influenza Type B Antigen Negative (Negative) SARS-CoV-2 Antigen (Rapid) Negative (NEGATIVE) Test 04/30/24 13:31 Hemoglobin A1c 12.1 % A1C (<5.7) Direct Bilirubin 0.1 mg/dL (<0.3) Troponin I High Sensitivity < 3 ng/L (</=54) Triglycerides Level 280 mg/dL (< 150) Cholesterol Level 132 mg/dL (< 200) LDL Cholesterol 72 mg/dL (< 100) HDL Cholesterol 31 mg/dL (40-59) Thyroid Stimulating Hormone (TSH) 1.25 uIU/mL (0.55-4.78) Other Laboratory Tests 05/03/24 10:26 Brief Hx & Hospital Course: Year old male with a history of diabetes hypercholesterolemia depression came in complaining of chest pain. 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 Consults/Reason for consult Cardiology Podiatric Operations or Procedures Cardiolite stress test Condition at Discharge: Fair Final Diagnosis/Problems List Chest pain, rule out coronary ischemia aspirin Lipitor cardiology consult appreciated echo 60 % ejection fraction, Cardiolite stress test negative Hypertension: Amlodipine Dyslipidemia: Lipitor Type 2 diabetes mellitus, uncontrolled (Hgb A1c 12.1%) Obesity Peripheral neuropathy: Gabapentin Depression: Wellbutrin Right 1st toe infection: Consult by Dr. Ya appreciated, advised outpatient follow up. Discharge Disposition: Home Discharge Instruct/Medications Diet: Cardiac 2g Na,low cholest Activity: Light activity Follow Up/Referral: Follow up with the primary Dr in one week follow up with the podiatric Dr. Ya in two weeks Medications: Clindamycin [place] Transmitted to pharmacy 35 (Time taken for discharge summary 35 minutes) Discharge Statement: "Patient was advised to return to the ER or call 911 if any headaches, dizziness, shortness of breath, chest pain, abdominal pain, bleeding, fevers, or worsening of medical condition. Patient was counseled about treatment plan, medications, possible side effects, patientverbalized understanding. All questions were answered to the best of my ability. This discharge took greater then 30 minutes in planning, reviewing documentation, counseling the patient, and discussing with other team members." ASSESSMENT ASSESSMENT Hospital Course Improved Assessment Chest pain, rule out coronary ischemia aspirin Lipitor cardiology consult appreciated echo 60 % ejection fraction, Cardiolite stress test negative Hypertension: Amlodipine Dyslipidemia: Lipitor Type 2 diabetes mellitus, uncontrolled (Hgb A1c 12.1%) Obesity Peripheral neuropathy: Gabapentin Depression: Wellbutrin Right 1st toe infection: Consult by Dr. Ya appreciated, advised outpatient follow up. Date of Service: May 05, 2024 Billing Provider: TERRI LAZAR MD Common Visit Codes: [id number] DISCH DAY >30min TERRI LAZAR MD May 05, 2024 13:29
== END 2024-05-05 18:15 | disposition home or self-care (01) | DRG 380 ==
LOC: EDBD 12:11 → ER 12:15 → OVERFLOW 22:02 → TELE-EAST 05-01 03:24
PROVIDERS: ADMIT Family Medicine; ATTEND Family Medicine
DX: E11.621 Type 2 diabetes mellitus with foot ulcer (principal); L97.509 Non-pressure chronic ulcer of other part of unspecified foot with unspecified severity; E11.42 Type 2 diabetes mellitus with diabetic polyneuropathy; I20.0 Unstable angina; I25.9 Chronic ischemic heart disease, unspecified; L03.115 Cellulitis of right lower limb; Z20.822 Contact with and (suspected) exposure to COVID-19; F17.210 Nicotine dependence, cigarettes, uncomplicated; I10 Essential (primary) hypertension; E11.65 Type 2 diabetes mellitus with hyperglycemia; E66.9 Obesity, unspecified; S91.101A Unspecified open wound of right great toe without damage to nail, initial encounter; E78.00 Pure hypercholesterolemia, unspecified; F32.A Depression, unspecified; Z68.32 Body mass index [BMI] 32.0-32.9, adult; Z79.899 Other long term (current) drug therapy; L08.9 Local infection of the skin and subcutaneous tissue, unspecified; Z79.84 Long term (current) use of oral hypoglycemic drugs; Z79.2 Long term (current) use of antibiotics; X58.XXXA Exposure to other specified factors, initial encounter; Y93.89 Activity, other specified; Y92.89 Other specified places as the place of occurrence of the external cause; Y99.8 Other external cause status
CPT/HCPCS: 36415; 71045; 76705; 78452; 80048; 80053; 80061; 80076; 82962; 83036; 84443; 84484; 85025; 85610; 85730; 86141; 87081; 87426; 87804; 93005; 93017; 93306; 96361; 96372; 96374; 96375; 99291; G0378; J1815; J2405; J2470

== ENCOUNTER 2024-08-12 18:49 | Inpatient (IN) | payer MEDICAID ==
[~2024-08-12] VITALS: Ht 185.4 cm; Wt 119.5 kg
[~2024-08-12 18:49] MED LIST changes: +CLIN1CAP70 PO
--- NOTE | 2024-08-12 19:04 | ED.PDOC ---
HPI Comments This is a 59 year old male TONY presenting to the ED with chief complaint of chest pain. Patient reports that he has been experiencing substernal chest pain with associated SOB and radiation to his left chest and right shoulder since 11am when moving some clothes around. Patient relays that his pain is a 10/10 at this time. Patient states that he has had similar chest pain for the past 6 months, occurring 2-3 times a day usually. Patient denies any N/V, abdominal pain, dizziness, headache, syncope, or fever. Chief Complaint: Chest Pain Time Seen by MD: 19:01 Primary Care Provider: unknown Reviewed Notes: Nurses Notes, Tectonophysicist Notes, Medications, Allergies Allergies: Coded Allergies: NO KNOWN ALLERGIES (Unverified , 10/29/23) Home Meds Active Scripts Hydrocodone-Acetaminophen (Hydrocodone Bitartrate/AC 5-325 mg) 1 Tab Tab, 1 TAB PO QID PRN, #30 TAB Prov:TERRI LAZAR MD 05/05/24 Clindamycin Hcl (Clindamycin Hcl) 300 Mg Cap, 1 CAP PO TID, #45 CAP Prov:TERRI LAZAR MD 05/05/24 Gabapentin (Gabapentin) 100 Mg Cap, 1 CAP PO TID, #90 CAP 5 Refills Prov:CHICHO CRAWFORD MD 11/04/23 Hydrocodone-Acetaminophen (Hydrocodone Bitartrate/AC 5-325 mg) 1 Tab Tab, 1 TAB PO Q6HPRN PRN, #20 TAB Prov:CHICHO CRAWFORD MD 11/04/23 Lisinopril (Lisinopril) 20 Mg Tab, 1 TAB PO DAILY, #30 TAB 5 Refills Prov:CHICHO CRAWFORD MD 11/04/23 Metformin Hydrochloride (METFORMIN HCL ER) 500 Mg Tab, 500 MG PO BID, #60 TAB 5 Refills Prov:CHICHO CRAWFORD MD 11/04/23 Amoxicillin & Pot Clavulanate (AUGMENTIN TABLET) 875 Mg Tb, 875 MG PO BID, #28 TAB Prov:CHICHO CRAWFORD MD 11/04/23 Information Source: Patient, Emergency Med Personnel Mode of Arrival: EMS Severity: Moderate Timing: Hours Duration: Since onset Prehospital treatment: None Location: Chest (L) Radiation: Shoulder (R) Onset: At Rest Cardiac Risk Factors: Smoker, Hyperlipidemia, HTN, Diabetes PE Risk Factors: None History of: Similar pain in past Past Medical History PAST MEDICAL HISTORY: Depression, DM, High Lipids, HTN, Liver Surgical History: Denies all surgeries Family History Family History: Reviewed,noncontributory to illness, No family hx of Cancer, No family hx of DM, No family hx of Heart yary, No family hx of HTN, No family hx ofKidney yary, No family hx of Liver yary, No family hx of Lung yary, No family hx of Stroke Social History Smoker: Cigarettes Alcohol: Denies ETOH Use Drugs: Denies Drug Use Lives In: Assisted Care Constitutional: denies: chills, diaphoresis, fatigue, fever, malaise, sweats, weakness, others EENTM: denies: blurred vision, double vision, ear bleeding, ear discharge, ear drainage, ear pain, ear ringing, eye pain, eye redness, hearing loss, mouth pain, mouth swelling, nasal discharge, nose bleeding, nose congestion, nose pain, photophobia, tearing, throat pain, throat swelling, voice changes, others Respiratory: reports: shortness of breath; denies: cough, hemoptysis, orthopnea, SOB at rest, SOB with excertion, stridor, wheezing, others Cardiovascular: reports: chest pain; denies: dizzy spells, diaphoresis, Dyspnea on exertion, edema, irregular heart beat, left arm pain, lightheadedness, palpitations, PND, syncope, others Gastrointestinal: denies: abdomen distended, abdominal pain, blood streaked bowels, constipated, diarrhea, dysphagia, difficulty swallowing, hematemesis, melena, nausea, poor appetite, poor fluid intake, rectal bleeding, rectal pain, vomiting, others Genitourinary: denies: burning, dysuria, flank pain, frequency, hematuria, incontinence, penile discharge, penile sore, pain, testicle pain, testicle swelling, urgency, others Neurological: denies: dizziness, fainting, headache, left sided numbness, left sided weakness, numbness, paresthesia, pre-existing deficit, right sided numbness, right sided weakness, seizure, speech problems, tingling, tremors, weakness, others Musculoskeletal: denies: back pain, gout, joint pain, joint swelling, muscle pain, muscle stiffness, neck pain, others Integumetry: denies: bruises, change in color, change in hair/nails, dryness, laceration, lesions, lumps, rash, wounds, others Allergic/Immunocompromised: denies: Difficulty Healing, Frequent Infections, Hives, Itching, others Hematologic/Lymphatic: denies: anemia, blood clots, easy bleeding, easy bruising, swollen glands, others Endocrine: denies: excessive hunger, excessive sweating, excessive thirst, excessive urination, flushing, intolerance to cold, intolerance to heat, unexplained weight gain, unexplained weight loss, others Psychiatric: denies: anxiety, bipolar disorder, depression, hopeless, panic disorder, schizophrenia, sleepless, suicidal, others All Other Systems: Reviewed and Negative Physical Exam General Appearance: No Apparent Distress, Normal HEENT: Normal ENT Inspection, Pharynx Normal, TMs Normal Neck: Full Range of Motion, Non-Tender, Normal, Normal Inspection Respiratory: Chest Non-Tender, Lungs Clear, No Accessory Muscle Use, No Respiratory Distress, Normal Breath Sounds Cardiovascular: No Edema, No JVD, No Murmur, No Gallop, Normal Peripheral Pulses, Regular Rate/Rhythm, Other (Left chest tenderness to palpation) Breast Exam: Deferred Gastrointestinal: No Organomegaly, Non Tender, No Pulsatile Mass, Normal Bowel Sounds, Soft Genitalia: Deferred Pelvic: Deferred Rectal: Deferred Extremities: No calf tenderness, Normal capillary refill, Normal inspection, Normal range of motion, Non-tender, No pedal edema Musculoskeletal : Apperance: Normal Neurologic: Alert, director equipment II-XII nml as Tested, No Motor Deficits, Normal Affect, Normal Mood, No Sensory Deficits Cerebellar Function: Normal Reflexes: Normal Skin: Dry, Normal Color, Warm Lymphatic: No Adenopathy EKG EKG : Pulse Rate (adult): 102 [place]: Normal Cardiac Rhythm: ST Block: None Hypertrophy: None ST: Normal Was a procedure done? Was a procedure done?: No CP Differential Dx Differential Diagnosis: N/A Differential Diagnosis: N/A Differential Diagnosis: Angina, Aortic dissection, Chest Wall Pain, Cholelithiasis, Costochondritis, Esophageal reflux/spasm, Gastritis, Myocardial Infarction, Pericarditis, Pneumonia, Pneumothorax, Pulmonary Embolus X-Ray, Labs, Meds, VS Vital Signs Date Time Temp Pulse Resp B/P (MAP) Pulse Ox O2 Delivery O2 Flow Rate FiO2 08/12/24 19:13 98.7 105 16 164/86 (112) 94 98.7 08/12/24 19:04 102 08/12/24 18:52 102 Lab Test 08/12/24 19:49 08/12/24 19:12 08/12/24 19:03 Range/Units Troponin I High Sensitivity Pending < 3 L </=54 ng/L POC Glucose 375 H 70-106 mg/dl White Blood Count 9.2 4.4-10.8 10^3/uL Red Blood Count 5.22 4.5-5.90 10^6/uL Hemoglobin 15.0 13.5-17.5 g/dL Hematocrit 43.3 41.0-53.0 % Mean Corpuscular Volume 82.8 80.0-100.0 fL Mean Corpuscular Hemoglobin 28.7 28.0-32.0 pg Mean Corpuscular Hemoglobin Concent 34.6 32.0-36.0 g/dL Red Cell Distribution Width 13.5 11.8-14.3 % Platelet Count 234 140-450 10^3/uL Mean Platelet Volume 7.0 6.9-10.8 fL Neutrophils (%) (Auto) 72.4 37.0-80.0 % Lymphocytes (%) (Auto) 16.9 10.0-50.0 % Monocytes (%) (Auto) 5.9 0.0-12.0 % Eosinophils (%) (Auto) 4.3 0.0-7.0 % Basophils (%) (Auto) 0.5 0.0-2.0 % Neutrophils # (Auto) 6.7 1.6-8.6 10 ^3/uL Lymphocytes # (Auto) 1.6 0.4-5.4 10 ^3/uL Monocytes # (Auto) 0.5 0-1.3 10 ^3/uL Eosinophils # (Auto) 0.4 0-0.8 10 ^3/uL Basophils # (Auto) 0 0-0.2 10 ^3/uL Nucleated Red Blood Cells 0.0 % Sodium Level 136 136-145 mmol/L Potassium Level 4.0 3.5-5.1 mmol/L Chloride Level 101 98-107 mmol/L Carbon Dioxide Level 26 20-31 mmol/L Anion Gap 9 5-15 Blood Urea Nitrogen 16 9-23 mg/dL Creatinine 1.07 0.700-1.30 mg/dL Glomerular Filtration Rate Calc 79 >90 mL/min BUN/Creatinine Ratio 15.0 10.0-20.0 Serum Glucose 407 *H 74-106 mg/dL Calcium Level 10.2 8.7-10.4 mg/dL Time of 1ST Reevaluation: 20:00 Reevaluation 1ST: Unchanged Patient Education/Counseling: Diagnosis, Treatment, Prognosis, Need For Follow Up Family Education/Counseling: No Family Present Comments pt has had a Cardiolite with the recent admission for chest pain recently which was negative. his chest pain this time is also typical of muscular in nature. he has no PE risk factors, no ptx, no pneumonia or lung mass. his pain is unchanging for months. his workup is unremarkable. he is stable to follow up with his PCP for this chest pain. however, upon discharging, he reports that he is homeless, has no way to follow up, cannot care for his hyperglycemia, has a hard time ambulating for many months and is requesting for placement. pt does have uncontrolled diabetes, with risk of progressing to DKA if not treated once discharged. he still has chest pain. i will have him admitted for PT rval, pain control, hyperglycemia control and CM eval for placement Additional Information Reviewed patient's previous visit(s): 04/30/24 for chest pain, 10/29/23 for cellulitis The following tests were ordered, and results were reviewed by me: CBC, BMP, EKG, Troponin, Chest XR Additional information was gathered from interviewing the following independent historian: EMS I reviewed and agreed with the following test results read by other provider: Chest XR I discussed treatments and results with medical personnel and: Patient Comprehensive systems review obtained and negative except for what is stated in the HPI. SEPSIS Sepsis Screen Physician Orders Electrocardigram (08/12/24 18:58) Troponin-I Hs (08/12/24 19:58) Troponin-I Hs (08/12/24 21:58) Electrocardigram (08/12/24 19:58) Electrocardigram (08/12/24 21:58) Chest Portable (08/12/24 19:01) Accucheck (08/12/24 20:00) Accucheck (08/12/24 21:00) Accucheck (08/12/24 22:00) Accucheck (08/12/24 23:00) Vital Signs Date Time Temp Pulse Resp B/P (MAP) Pulse Ox O2 Delivery O2 Flow Rate FiO2 08/12/24 19:13 98.7 105 16 164/86 (112) 94 98.7 08/12/24 19:04 102 08/12/24 18:52 102 Laboratory Tests Test 08/12/24 19:03 White Blood Count 9.2 10^3/uL (4.4-10.8) Departure 1 Departure Time of Disposition: 20:02 Impression: Primary Impression: Chest pain Qualified Codes: R07.9 - Chest pain, unspecified Additional Impressions: Weakness Hyperglycemia Homeless Noncompliance Disposition: ADMITTED INPATIENT Admit to: Med Surg Condition: Good Discharged With: Self Critical Care Note Critical Care Time?: Yes (45 min-critical care time only) Critical care comment: due to concerns for patient's condition deteriorating, the care required my highest level of attention and readiness to intervene. i assessed the patient's condition, ordered the proper tests and treatments, reassessed for response and reviewed the results. i communicated with medical personnel and formulated a plan of care. total critical care time does not include any procedures Stability Stability form required: No Heart Score Heart Score: Heart Score Response (Comments) Value History Slightly Suspicious 0 EKG Normal 0 Age >65 2 Risk Factors >3 or Hx ASHD 2 Troponin Normal limit 0 Total 4 I personally scribed for SHIREEN LITTLEJOHN MD ([email or web address]) on 08/12/24 at 19:04. Electronically submitted by Ananth Mesa ([email or web address]). SHIREEN LITTLEJOHN MD Aug 12, 2024 19:04
[2024-08-12 19:15] LABS: Hematocrit 43.3 % (41.0-53.0); Hemoglobin 15.0 g/dL (13.5-17.5); Mean Corpuscular Hemoglobin 28.7 pg (28.0-32.0); Mean Corpuscular Volume 82.8 fL (80.0-100.0); Nucleated Red Blood Cells % 0.0 %
[2024-08-12 19:23] LABS: Chloride 101 mmol/L (98-107); Potassium 4.0 mmol/L (3.5-5.1); Sodium 136 mmol/L (136-145)
[2024-08-12 19:24] LABS: Anion Gap 9 (5-15); Carbon Dioxide 26 mmol/L (20-31)
[2024-08-12 19:25] LABS: Calcium 10.2 mg/dL (8.7-10.4)
[2024-08-12 19:29] LABS: BUN/Creatinine Ratio 15.0 (10.0-20.0); Blood Urea Nitrogen 16 mg/dL (9-23)
[2024-08-12 19:36] LABS: Glucose 407 mg/dL (74-106)
[2024-08-12] MEDS: InsuLIN REG 1unit/0.01ml Soln (100units/ml) SC ONE (20:40)
--- NOTE | 2024-08-12 20:48 | DVH ---
INDICATION: cp TECHNIQUE: Frontal view of the chest. COMPARISON: XY CHEST PORTABLE on DOS: 04/30/24 FINDINGS: . The heart and mediastinal contours are grossly unremarkable. There is no evidence of pleural disea se. The lungs are clear. The bony structures of the chest are intact without fracture. IMPRESSION: 1. No evidence of acute disease.
[2024-08-12 22:15] VITALS: PULSE 78; RESP 20; O2SAT 93
[2024-08-12] MEDS ORDERED: DEXTROSE (50%) 50ML SYRG IV PRN (23:00)
[2024-08-12] MEDS ORDERED: hydrALAZINE HCL 20 MG/ML VL IV PRN (23:00)
[2024-08-12] MEDS ORDERED: ONDANSETRON HCL 4 MG/2 ML VIAL IV PRN (23:00)
[2024-08-12] MEDS ORDERED: DOCUSATE SOD 100 MG CAP PO PRN (23:00)
[2024-08-12] MEDS ORDERED: MORPHINE SULFATE INJ 2 MG/ml SYRG IV PRN (23:15)
[2024-08-12] MEDS ORDERED: NITROGLYCERIN 0.4 MG SL TAB SL PRN (23:15)
--- NOTE | 2024-08-12 23:16 | DVHHP2 ---
History of Present Illness Reason for Visit: Chest pain History of Present Illness The patient is a 59-year-old male with past medical history of dementia, DM, liver disease, hypertension, and hyperlipidemia who presented to [facility] ED with complaint of chest pain. Patient reports that he has been exp eriencing substernal chest pain, radiation to his left chest, right shoulder, rating 10/10 numeric scale, associated with shortness of breaths. Patient was seen and evaluated in the ED, laboratory data shows WBC 9.2, platelets 234, sodium 136, potassium 4.0, BUN 16, creatinine 1.07, glucose 407, calcium 10.2, troponin 3, blood pressure 141/84, heart rate 78, temperature 98.8 F, O2 saturation 93% on oxygen. Chest x-ray showed no evidence of acute disease. Please see medication orders section in the computer. On my assessment, patient denied chest, no headache, no dizziness, currently on oxygen, no diaphoresis, no nausea, no vomiting, no fever, no chills. Patient was admitted for further evaluation and medical management. Past Medical History Depression, DM, High Lipids, HTN, Liver Past Surgical History Denies all surgeries Family History Reviewed, noncontributory to the management of this case. Past Social History The patient lives in assisted care living, smokes cigarettes, denies alcohol or illicit drugs abuse. Review of Systems Constitutional: Yes: Weakness; No: Fever, Chills, Sweats, Malaise, Other Eyes: No: Pain, Vision change, Conjunctivae inflammation, Eyelid inflammation, Other, Redness ENT: No: Ear pain, Ear discharge, Nose pain, Nose discharge, Nose congestion, Mouth pain, Mouth swelling, Throat pain, Throat swelling, Other Respiratory: Shortness of breath; No: Cough, Dry, SOB with excertion, Wheezing, Hemoptysis, Pleuritic Pain, Sputum, Wheezing, Other Cardiovascular: Chest Pain; No: Palpitations, Orthopnea, Paroxysmal Noc. Dyspnea, Edema, Lt Headedness, Other Gastrointestinal: No: Nausea, Vomiting, Abdominal Pain, Diarrhea, Constipation, Melena, Hematochezia, Other Genitourinary: No Dysuria, No Frequency, No Incontinence, No Hematuria, No Retention, No Other Musculoskeletal: No: other, neck pain, shoulder pain, arm pain, back pain, hand pain, leg pain, foot pain Skin: No: Rash, Lesions, Jaundice, Bruising, Other Neurological: No: Weakness, Numbness, Incoordination, Change in speech, Confusion, Seizures, Other Allergies: Coded Allergies: NO KNOWN ALLERGIES (Unverified , 10/29/23) Medications Current Medications Medications Dose Ordered Sig/[place] Route Start Time Stop Time Status Last Admin Dose Admin Lisinopril 20 mg DAILY PO 08/13/24 10:00 Atorvastatin Calcium 10 mg HS PO 08/13/24 22:00 Ibuprofen 600 mg Q6HP PRN PO 08/12/24 23:00 Hydralazine HCl 10 mg Q6HP PRN IV 08/12/24 23:00 Diagnostic Test (Pha) 1 strip IQ4HR 08/13/24 00:00 Insulin Human Regular IQ4HR SC 08/13/24 00:00 Dextrose 50 ml UD PRN IV 08/12/24 23:00 Sodium Chloride 1,000 ml @ 60 mls/hr [id number] IV 08/12/24 23:00 Acetaminophen/ Hydrocodone Bitart 1 tab Q4HP PRN PO 08/12/24 23:00 Ondansetron HCl 4 mg Q4HP PRN IV 08/12/24 23:00 Docusate Sodium 100 mg BIDPRN PRN PO 08/12/24 23:00 Aspirin 81 mg DAILY PO 08/13/24 10:00 Exam Vital Signs Vital Signs Date Time Temp Pulse Resp B/P (MAP) Pulse Ox O2 Delivery O2 Flow Rate FiO2 08/12/24 22:15 98.8 78 20 131/72 (91) 93 98.8 08/12/24 22:15 Nasal Cannula* 2 28 General Appearance: Alert, Oriented X3, Cooperative HEENT: Atraumatic, PERRLA, EOMI, Mucous membr. moist/pink Respiratory: Normal air movement, Other (Currently on oxygen) Cardiovascular: Regular rate, Normal S1, Normal S2, No murmurs Abdominal: Normal bowel sounds, Soft, No tenderness, No hepatospenomegaly, No masses Extremities: No clubbing, No cyanosis, No edema, Normal pulses, No tenderness/swelling Skin: No rashes, No significant lesion Neuro: Normal speech, Normal tone, Sensation intact, Cranial nerves 3-12 NL, Reflexes 2+, Other (Generalized weakness) Psych/Mental Status: Mental status NL, Mood NL Labs/Xrays Labs Test 08/12/24 20:34 08/12/24 19:49 08/12/24 19:03 Range/Units POC Glucose 300 H 70-106 mg/dl Troponin I High Sensitivity 3 L </=54 ng/L White Blood Count 9.2 4.4-10.8 10^3/uL Red Blood Count 5.22 4.5-5.90 10^6/uL Hemoglobin 15.0 13.5-17.5 g/dL Hematocrit 43.3 41.0-53.0 % Mean Corpuscular Volume 82.8 80.0-100.0 fL Mean Corpuscular Hemoglobin 28.7 28.0-32.0 pg Mean Corpuscular Hemoglobin Concent 34.6 32.0-36.0 g/dL Red Cell Distribution Width 13.5 11.8-14.3 % Platelet Count 234 140-450 10^3/uL Mean Platelet Volume 7.0 6.9-10.8 fL Neutrophils (%) (Auto) 72.4 37.0-80.0 % Lymphocytes (%) (Auto) 16.9 10.0-50.0 % Monocytes (%) (Auto) 5.9 0.0-12.0 % Eosinophils (%) (Auto) 4.3 0.0-7.0 % Basophils (%) (Auto) 0.5 0.0-2.0 % Neutrophils # (Auto) 6.7 1.6-8.6 10 ^3/uL Lymphocytes # (Auto) 1.6 0.4-5.4 10 ^3/uL Monocytes # (Auto) 0.5 0-1.3 10 ^3/uL Eosinophils # (Auto) 0.4 0-0.8 10 ^3/uL Basophils # (Auto) 0 0-0.2 10 ^3/uL Nucleated Red Blood Cells 0.0 % Sodium Level 136 136-145 mmol/L Potassium Level 4.0 3.5-5.1 mmol/L Chloride Level 101 98-107 mmol/L Carbon Dioxide Level 26 20-31 mmol/L Anion Gap 9 5-15 Blood Urea Nitrogen 16 9-23 mg/dL Creatinine 1.07 0.700-1.30 mg/dL Glomerular Filtration Rate Calc 79 >90 mL/min BUN/Creatinine Ratio 15.0 10.0-20.0 Serum Glucose 407 *H 74-106 mg/dL Calcium Level 10.2 8.7-10.4 mg/dL PATIENT: YOUSIF EASON ACCT: [id number] UNIT: [id number] : 1965 LOC: ER ROOM / BED: / AGE / SEX: 59 / M ADM STATUS: REG ER SERVICE 1901 ORDERING PHYSICIAN: SHIREEN LITTLEJOHN MD PROCEDURE(s): CXRP - CHEST PORTABLE REASON: cp ORDER NUMBER(s): [id number], ACCESSION NUMBER(s): [id number] INDICATION: cp TECHNIQUE: Frontal view of the chest. COMPARISON: XY CHEST PORTABLE on DOS: 04/30/24 FINDINGS: The heart and mediastinal contours are grossly unremarkable. There is no evidence of pleural disease. The lungs are clear. The bony structures of the chest are intact without fracture. IMPRESSION: 1. No evidence of acute disease. Assessment/Plan Assessment/Plan Chest pain Chest pain, unspecified Homeless Noncompliance Generalized weakness Diabetes mellitus with hyperglycemia Plan 1. Admit to telemetry unit 2. Breathing treatment 3. Pain control management 4. Management of fluids and electrolytes 5. Consultation for hospitalist 6. Diagnostic tests chest x-ray 7. DVT prophylaxis-on aspirin 8. Repeat labs CBC, CMP in a.m. 9. Continue with current medical management 10. Treatment plan discussed with patient and RN. Patient verbalized understanding. Plan discussed with: Patient, Other (RN) My Orders Orders - PAUL GUERRA DNP Procedure Category Date Status Time Lisinopril Tablet PHA 08/13/24 In Process (Zestril Tablet) 10:00 Atorvastatin (Lipitor) PHA 08/13/24 In Process 22:00 Ibuprofen Tablet PHA 08/12/24 In Process (Motrin Tablet) 23:00 Hydralazine Injection PHA 08/12/24 In Process (Apresoline Inject 23:00 Consistent DIET 08/13/24 Transmitted Carb(Ccho)Diabetes Breakfast Hemoglobin A1c LAB 08/12/24 In Process 22:57 Glucose Blood PHA 08/13/24 In Process (Accu-Chek Comfort 00:00 Insulin R (Human) PHA 08/13/24 In Process (Insulin R) 00:00 Dextrose 50% Syringe PHA 08/12/24 In Process 23:00 Allergies NAYELI 7/3/25 In Process 22:57 Code Status CODE 08/12/24 Transmitted 22:57 Sodium Chloride 0.9% PHA 08/12/24 In Process 23:00 Oxygen Per Hour RT 08/12/24 Transmitted 22:57 Hydrocodone-Acet PHA 08/12/24 In Process 5/325mg Tab ([place] 23:00 Ondansetron Hcl PHA 08/12/24 In Process (Zofran) 23:00 Docusate Sodium PHA 08/12/24 In Process Capsule ([place] 23:00 Complete Blood Count LAB 08/13/24 Verified 04:00 Comprehensive LAB 08/13/24 Verified Metabolic Panel 04:00 Condition: Serious NAYELI 08/12/24 In Process 22:57 Bedrest With Bathroom NAYELI 08/12/24 In Process Privileg 22:57 Sequential NAYELI 08/12/24 In Process Compression Device Aspirin Tablet PHA 08/13/24 In Process 10:00 Aspirin Tablet PHA 08/12/24 In Process 23:15 Problem List: (1) Chest pain (2) Chest pain, unspecified (3) Homeless (4) Noncompliance (5) Generalized weakness (6) Diabetes mellitus with hyperglycemia Date of Service: Aug 12, 2024 Billing Provider: PAUL GUERRA DNP Common Visit Codes: [id number] INP/OBS CARE (HIGH) PAUL GUERRA DNP Aug 12, 2024 23:16
[2024-08-12] MEDS: ACCU-CHEK COMFORT CURVE STRIP VI SCH (23:47)
[2024-08-12] MEDS: InsuLIN REG 1unit/0.01ml Soln (100units/ml) SC SCH (23:47)
[2024-08-12] MEDS: SODIUM CHLORIDE 0.9% 1,000 ML IV SCH (23:47)
[2024-08-13] VITALS (8 sets, daily range): BP systolic 115–153; BP diastolic 60–93; PULSE 69–86; RESP 17–22; TEMP 97.5–98.3; O2SAT 90–97
[2024-08-13 06:16] LABS: Hematocrit 41.9 % (41.0-53.0); Hemoglobin 14.7 g/dL (13.5-17.5); Mean Corpuscular Hemoglobin 29.0 pg (28.0-32.0); Mean Corpuscular Volume 82.8 fL (80.0-100.0); Nucleated Red Blood Cells % 0.1 %
[2024-08-13 06:34] LABS: Alanine Aminotransferase 27 U/L (7-40); Albumin 4.3 g/dL (3.2-4.8); Alkaline Phosphatase 101 U/L (46-116); Anion Gap 10 (5-15); BUN/Creatinine Ratio 15.7 (10.0-20.0); Bilirubin, Total 0.3 mg/dL (0.2-1.0); Blood Urea Nitrogen 13 mg/dL (9-23); Calcium 9.5 mg/dL (8.7-10.4); Carbon Dioxide 27 mmol/L (20-31); Chloride 103 mmol/L (98-107); Glucose 164 mg/dL (74-106); Potassium 3.7 mmol/L (3.5-5.1); Sodium 140 mmol/L (136-145); Total Protein 6.7 g/dL (5.7-8.2)
[2024-08-13] MEDS: LISINOPRIL 20 MG TAB PO SCH (09:00)
--- NOTE | 2024-08-13 15:47 | DVHPNRES ---
Progress Note Date Seen: Aug 13, 2024 Resident Creating Document: PARVEZ ENCINAS RESIDENT Medical Necessity Reason Pt with a Central, PICC or Fol: No Subjective Review of Systems 59-year-old male with a history of dementia, diabetes, liver disease, hypertension, and hyperlipidemia, presenting to [facility] with complaints of chest pain and shortness of breath. The patient reports experiencing chest pain, radiating to his left chest and right shoulder, rated 10 out of 10 in severity. This pain is associated with shortness of breath, which has been present for the last 2 days. Jp also complains of bilateral neck pain and acid reflux, Objective vital signs Vital Sign Date Time Temp Pulse Resp B/P (MAP) Pulse Ox O2 Delivery O2 Flow Rate FiO2 08/13/24 13:00 98.3 77 18 140/89 (106) 94 98.3 08/13/24 08:00 Nasal Cannula* 2 28 Total Intake and Output 08/12/24 08/12/24 08/13/24 15:00 23:00 07:00 Intake Total 700 ml Output Total 750 ml Balance -50 ml medications Current Medications Medications Dose Ordered Sig/[place] Route Start Time Stop Time Status Last Admin Dose Admin Lisinopril 20 mg DAILY PO 08/13/24 10:00 08/13/24 09:00 20 MG Atorvastatin Calcium 10 mg HS PO 08/13/24 22:00 Ibuprofen 600 mg Q6HP PRN PO 08/12/24 23:00 Diagnostic Test (Pha) 1 strip IQ4HR 08/13/24 00:00 08/13/24 12:43 1 STRIP Insulin Human Regular IQ4HR SC 08/13/24 00:00 08/13/24 12:00 2 UNITS Dextrose 50 ml UD PRN IV 08/12/24 23:00 Acetaminophen/ Hydrocodone Bitart 1 tab Q4HP PRN PO 08/12/24 23:00 Ondansetron HCl 4 mg Q4HP PRN IV 08/12/24 23:00 Docusate Sodium 100 mg BIDPRN PRN PO 08/12/24 23:00 Aspirin 81 mg DAILY PO 08/13/24 10:00 08/13/24 09:00 81 MG Examination GENERAL: Not in acute distress. HEENT: EOMI, Moist mucous membranes. No scleral icterus. No cervical lymphadenopathy.neck tenderness LUNGS: Clear to auscultation bilaterally. No accessory muscle use. Tender on left side of chest on palpation. Patient is on 2 L of oxygen CARDIOVASCULAR: Regular rate and rhythm. No murmur. No JVD. ABDOMEN: Soft, nontender and nondistended. No palpable masses. EXTREMITIES: No edema. Nontender. SKIN: No rashes or lesions. Warm. NEUROLOGIC: Alert and oriented X3 laboratory and microbiology Laboratory Tests 08/13/24 05:25 Test 08/13/24 05:25 Range/Units Serum Glucose 164 #H 74-106 mg/dL Problem List/Assessment/Plan Problem List/Assessment/Plan # Chest Pain, Likely musculoskeletal # ruled out ACS - A stress test performed on 05/04/24 was negative. - Echocardiogram showed 60% ejection fraction with aortic dilatation. - Given the negative stress test and current presentation, the chest pain is likely non-cardiac in origin. - continue aspirin atorvastatin # acute hypoxic respiratory failure secondary to chest pain and Shortness of Breath - Initiated breathing treatments - On 2 liters of oxygen - Monitor oxygen saturation and respiratory status - titrate oxygen - patient is not on home oxygen Diabetes Mellitus Type 2 Assessment: Patient reports blood glucose over 400 after running out of [employer] in July. History of diabetic neuropathy in foot. Current hemoglobin A1c is 9.9%. Plan: - Initiate moderate sliding scale insulin - Monitor blood glucose levels - Educate on lifestyle modifications: - Low-carb, low-calorie diet # Liver Disease, fatty liver - Continue monitoring liver function # Hypertension - continue home medication lisinopril - Monitor blood pressure # Hyperlipidemia - continue atorvastatin - Encourage lifestyle modifications: - Low-carb, low-calorie diet - Regular exercise # diabetic Neuropathy - Continue Gabapentin 100 mg TID - Resume other home medications for neuropathy (specific medications not mentioned) # Homelessness - Consult social security benefits interviewer for placement assistance. Goal of care discussed with patient for 26 minutes: Full code Plan discussed with Dr. Sotelo Plan discussed with: Patient Date of Service: Aug 13, 2024 Billing Provider: ALVARO SOTELO MD Common Visit Codes: [id number] INP/OBS CARE(HIGH) PARVEZ ENCINAS RESIDENT Aug 13, 2024 15:47 ALVARO SOTELO MD Aug 14, 2024 16:46
[2024-08-13] MEDS: IBUPROFEN 600 MG TAB PO PRN (17:53)
--- NOTE | 2024-08-13 18:21 | DVH ---
EXAM: CT CERVICAL WITHOUT CONTRAST INDICATION: SEVERE NECK PAIN EXAM DATE: 08/13/2024 04:17 PM COMPARISON: None TECHNIQUE: Multiple axial CT images of the cervical spine were obtained using bone algorithm. Axial a nd coronal reformatting was done. Bone and soft tissue windows were reviewed. Radiation Dose Information: CT Dose: CTDI volume is 29.67 mGy. Dose-length product is 619.94 mGy*cm FINDINGS: The cervical alignment is intact. No acute cervical spine fracture is identified. The vertebral body heights are intact. No suspicious osseous lesions are identified. Multilevel degenerative changes most severe at C4-C5 through C6-C7 with moderate to severe neural for aminal and spinal canal stenosis. There is no prevertebral soft tissue swelling. IMPRESSION: No evidence of acute cervical spine fracture or traumatic malalignment. Multilevel degenerative changes most severe at C4-C5 through C6-C7 with moderate to severe neural for aminal and spinal canal stenosis. All CT scans at this medical facility are performed using dose modulation techniques as appropriate t o a performed exam including the following: Automated exposure control was utilized; adjustment of th e MA and/or KV according to patient size; and use of iterative reconstruction technique.
[2024-08-13] MEDS: ATORVASTATIN 20 MG TAB PO SCH (21:21)
[2024-08-14] VITALS (7 sets, daily range): BP systolic 113–144; BP diastolic 62–92; PULSE 71–84; RESP 17–19; TEMP 97.7–98.2; O2SAT 90–97
[2024-08-14 06:35] LABS: Hematocrit 44.0 % (41.0-53.0); Hemoglobin 15.4 g/dL (13.5-17.5); Mean Corpuscular Hemoglobin 29.0 pg (28.0-32.0); Mean Corpuscular Volume 82.9 fL (80.0-100.0); Nucleated Red Blood Cells % 0.0 %
[2024-08-14 06:37] LABS: Anion Gap 8 (5-15); Carbon Dioxide 28 mmol/L (20-31); Chloride 102 mmol/L (98-107); Potassium 3.8 mmol/L (3.5-5.1); Sodium 138 mmol/L (136-145)
[2024-08-14 06:38] LABS: Calcium 9.6 mg/dL (8.7-10.4)
--- NOTE | 2024-08-14 06:39 | ECG ---
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
--- NOTE | 2024-08-14 06:40 | ECG ---
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
[2024-08-14 06:43] LABS: BUN/Creatinine Ratio 15.1 (10.0-20.0); Blood Urea Nitrogen 14 mg/dL (9-23)
[2024-08-14 06:56] LABS: Glucose 141 mg/dL (74-106)
[2024-08-14] MEDS: GABAPENTIN 100 MG CAP PO SCH (14:45)
--- NOTE | 2024-08-14 20:45 | DVHPNRES ---
Progress Note Date Seen: Aug 14, 2024 Resident Creating Document: DAVID ARAMBULA RESIDENT Medical Necessity Reason Pt with a Central, PICC or Fol: No Subjective Review of Systems 59-year-old male with a history of dementia, diabetes, liver disease, hypertension, and hyperlipidemia, presenting to [facility] with complaints of chest pain and shortness of breath. Patient was seen and examined on the bedside. He is alert oriented x3. Mentioned feeling better and neck pain. Patient is awaiting for placement for recuperative care Objective vital signs Vital Sign Date Time Temp Pulse Resp B/P (MAP) Pulse Ox O2 Delivery O2 Flow Rate FiO2 08/14/24 20:00 Nasal Cannula* 2 28 08/14/24 16:23 98.2 72 17 138/86 (103) 94 98.2 Total Intake and Output 08/13/24 08/13/24 08/14/24 15:00 23:00 07:00 Intake Total 480 ml 625 ml Output Total 600 ml Balance -120 ml 625 ml medications Current Medications Medications Dose Ordered Sig/[place] Route Start Time Stop Time Status Last Admin Dose Admin Lisinopril 20 mg DAILY PO 08/13/24 10:00 08/14/24 10:02 20 MG Atorvastatin Calcium 10 mg HS PO 08/13/24 22:00 08/13/24 21:21 10 MG Ibuprofen 600 mg Q6HP PRN PO 08/12/24 23:00 08/14/24 11:58 600 MG Diagnostic Test (Pha) 1 strip IQ4HR 08/13/24 00:00 08/14/24 16:00 1 STRIP Insulin Human Regular IQ4HR SC 08/13/24 00:00 08/14/24 16:46 6 UNITS Dextrose 50 ml UD PRN IV 08/12/24 23:00 Acetaminophen/ Hydrocodone Bitart 1 tab Q4HP PRN PO 08/12/24 23:00 Ondansetron HCl 4 mg Q4HP PRN IV 08/12/24 23:00 Docusate Sodium 100 mg BIDPRN PRN PO 08/12/24 23:00 Aspirin 81 mg DAILY PO 08/13/24 10:00 08/14/24 10:02 81 MG Gabapentin 100 mg TID PO 08/14/24 14:00 08/14/24 14:45 100 MG Examination Examination GENERAL: Not in acute distress. HEENT: EOMI, Moist mucous membranes. No scleral icterus. No cervical lymphadenopathy.neck tenderness LUNGS: Clear to auscultation bilaterally. No accessory muscle use. Tender on left side of chest on palpation. Patient is on 2 L of oxygen CARDIOVASCULAR: Regular rate and rhythm. No murmur. No JVD. ABDOMEN: Soft, nontender and nondistended. No palpable masses. EXTREMITIES: No edema. Nontender. SKIN: No rashes or lesions. Warm. NEUROLOGIC: Alert and oriented X3 laboratory and microbiology Laboratory Tests 08/14/24 05:39 Test 08/14/24 05:39 Range/Units Serum Glucose 141 H 74-106 mg/dL Microbiology Date/Time Source Procedure Growth Status 08/13/24 10:55 Nose MRSA Screen - Final Complete Labs and/or images reviewed: Labs reviewed by me, Image(s) reviewed by me Problem List/Assessment/Plan Problem List/Assessment/Plan Assessment and plan # Chest Pain, Likely musculoskeletal # ruled out ACS - A stress test performed on 05/04/24 was negative. - Echocardiogram showed 60% ejection fraction with aortic dilatation. - Given the negative stress test and current presentation, the chest pain is likely non-cardiac in origin. - continue aspirin atorvastatin # acute hypoxic respiratory failure secondary to chest pain and Shortness of Breath - Initiated breathing treatments - On 2 liters of oxygen - Monitor oxygen saturation and respiratory status - titrate oxygen - patient is not on home oxygen Diabetes Mellitus Type 2 Assessment: Patient reports blood glucose over 400 after running out of [employer] in July. History of diabetic neuropathy in foot. Current hemoglobin A1c is 9.9%. Plan: - Initiate moderate sliding scale insulin - Monitor blood glucose levels - Educate on lifestyle modifications: - Low-carb, low-calorie diet # Liver Disease, fatty liver - Continue monitoring liver function # Hypertension - continue home medication lisinopril - Monitor blood pressure # Hyperlipidemia - continue atorvastatin - Encourage lifestyle modifications: - Low-carb, low-calorie diet - Regular exercise # diabetic Neuropathy - Continue Gabapentin 100 mg TID - Resume other home medications for neuropathy (specific medications not mentioned) # Homelessness - Consult social services designee for placement assistance. Goal of care discussed with patient for 26 minutes: Full code Plan discussed with Dr. Sotelo Plan discussed with: Patient, Other My Orders My Orders Orders - DAVID ARAMBULA RESIDENT Procedure Category Date Status Time Discontinue Tele NAYELI 08/14/24 In Process 10:26 Transfer Orders XFER 08/14/24 Transmitted 10:26 Gabapentin Capsule PHA 08/14/24 In Process (Neurontin Capsule) 14:00 * Deli Associate CONS 08/14/24 Transmitted Consult 15:17 Date of Service: Aug 14, 2024 Billing Provider: ALVARO SOTELO MD Common Visit Codes: [id number] INP/OBS CARE(HIGH) DAVID ARAMBULA RESIDENT Aug 14, 2024 20:45 ALVARO SOTELO MD Aug 15, 2024 21:15
[2024-08-15] VITALS (8 sets, daily range): BP systolic 124–144; BP diastolic 68–87; PULSE 67–82; RESP 17–22; TEMP 97.7–98.6; O2SAT 90–96
--- NOTE | 2024-08-15 15:05 | DVHPNRES ---
Progress Note Date Seen: Aug 15, 2024 Resident Creating Document: PARVEZ ENCINAS RESIDENT Medical Necessity Reason Pt with a Central, PICC or Fol: No Subjective Review of Systems Patient was seen and examined on the bedside. He is alert oriented x3. Mentioned feeling better no complaint of pain today. Patient is awaiting for placement for recuperative care. Objective vital signs Vital Sign Date Time Temp Pulse Resp B/P (MAP) Pulse Ox O2 Delivery O2 Flow Rate FiO2 08/15/24 13:00 98.6 68 18 144/87 (106) 94 98.6 08/15/24 08:05 Nasal Cannula* 2 28 Total Intake and Output 08/14/24 08/14/24 08/15/24 15:00 23:00 07:00 Intake Total 1080 ml 1200 ml Output Total 1000 ml 700 ml Balance 80 ml 500 ml medications Current Medications Medications Dose Ordered Sig/[place] Route Start Time Stop Time Status Last Admin Dose Admin Lisinopril 20 mg DAILY PO 08/13/24 10:00 08/15/24 08:32 20 MG Atorvastatin Calcium 10 mg HS PO 08/13/24 22:00 08/14/24 21:11 10 MG Ibuprofen 600 mg Q6HP PRN PO 08/12/24 23:00 08/14/24 11:58 600 MG Diagnostic Test (Pha) 1 strip IQ4HR 08/13/24 00:00 08/15/24 11:17 1 STRIP Insulin Human Regular IQ4HR SC 08/13/24 00:00 08/15/24 11:30 6 UNITS Dextrose 50 ml UD PRN IV 08/12/24 23:00 Acetaminophen/ Hydrocodone Bitart 1 tab Q4HP PRN PO 08/12/24 23:00 Ondansetron HCl 4 mg Q4HP PRN IV 08/12/24 23:00 Docusate Sodium 100 mg BIDPRN PRN PO 08/12/24 23:00 Aspirin 81 mg DAILY PO 08/13/24 10:00 08/15/24 08:31 81 MG Gabapentin 100 mg TID PO 08/14/24 14:00 08/15/24 13:56 100 MG Examination GENERAL: Not in acute distress. HEENT: EOMI, Moist mucous membranes. No scleral icterus. No cervical lymphadenopathy.neck tenderness LUNGS: Clear to auscultation bilaterally. No accessory muscle use. Patient is on 2 L of oxygen CARDIOVASCULAR: Regular rate and rhythm. No murmur. No JVD. ABDOMEN: Soft, nontender and nondistended. No palpable masses. EXTREMITIES: No edema. Nontender. SKIN: No rashes or lesions. Warm. NEUROLOGIC: Alert and oriented X3. laboratory and microbiology Laboratory Tests 08/14/24 05:39 Test 08/14/24 05:39 Range/Units Serum Glucose 141 H 74-106 mg/dL Microbiology Date/Time Source Procedure Growth Status 08/13/24 10:55 Nose MRSA Screen - Final Complete Problem List/Assessment/Plan Problem List/Assessment/Plan # Chest Pain, Likely musculoskeletal # ruled out ACS - A stress test performed on 05/04/24 was negative. - Echocardiogram showed 60% ejection fraction with aortic dilatation. - Given the negative stress test and current presentation, the chest pain is likely non-cardiac in origin. - continue aspirin atorvastatin # acute hypoxic respiratory failure secondary to chest pain and Shortness of Breath - Initiated breathing treatments - On 2 liters of oxygen - Monitor oxygen saturation and respiratory status - titrate oxygen - patient is not on home oxygen Diabetes Mellitus Type 2 Assessment: Patient reports blood glucose over 400 after running out of [employer] in July. History of diabetic neuropathy in foot. Current hemoglobin A1c is 9.9%. Plan: - Initiate moderate sliding scale insulin - Monitor blood glucose levels - Educate on lifestyle modifications: - Low-carb, low-calorie diet # Liver Disease, fatty liver - Continue monitoring liver function # Hypertension - continue home medication lisinopril - Monitor blood pressure # Hyperlipidemia - continue atorvastatin - Encourage lifestyle modifications: - Low-carb, low-calorie diet - Regular exercise # diabetic Neuropathy - Continue Gabapentin 100 mg TID # Homelessness - Consult social work coordinator for placement assistance. - Patient is awaiting for placement for recuperative care Goal of care discussed with patient for 19 minutes: Full code Plan discussed with Dr. Sotelo Plan discussed with: Patient Date of Service: Aug 15, 2024 Billing Provider: ALVARO SOTELO MD Common Visit Codes: [id number] INP/OBS CARE(HIGH) PARVEZ ENCINAS RESIDENT Aug 15, 2024 15:05 ALVARO SOTELO MD Aug 15, 2024 21:17
[2024-08-16] VITALS (10 sets, daily range): BP systolic 114–146; BP diastolic 68–89; PULSE 62–75; RESP 17–20; TEMP 97.4–98.4; O2SAT 91–94
[2024-08-16] MEDS: HYDROcodone-ACET 5/325MG TAB PO PRN (08:01)
--- NOTE | 2024-08-16 11:43 | ECG ---
[facility] Test Date: 2024-08-12 Test Time: 18:52:42 Pat Name: YOUSIF EASON Department: ED Room: 0212 B Gender: M Anesthesia Director: KATELYN : 1965 Requested By: SHIREEN LITTLEJOHN Order Number: [id number] Reading MD: Donte Beaulieu Measurements Intervals [place] Rate: 102 P: 26 SD: 191 QRS: 24 QRSD: 100 T: 28 QT: 343 QTc: 447 Interpretive Statements Sinus tachycardia Abnormal R-wave progression, late transition Inferior infarct, old Electronically Signed On 08-19-2024 18:10:39 PDT by Donte Beaulieu Please click the below link to view image of tracing.
--- NOTE | 2024-08-16 17:22 | DVHPNRES ---
Progress Note Date Seen: Aug 16, 2024 Resident Creating Document: PARVEZ ENCINAS RESIDENT Medical Necessity Reason Pt with a Central, PICC or Fol: No Subjective Review of Systems Patient was seen and examined on the bedside. He is alert oriented x3. Mentioned feeling better no complaint of pain today. Patient is awaiting for placement for recuperative care. Objective vital signs Vital Sign Date Time Temp Pulse Resp B/P (MAP) Pulse Ox O2 Delivery O2 Flow Rate FiO2 08/16/24 16:50 98.4 73 18 126/75 (92) 92 98.4 08/16/24 08:05 Nasal Cannula* 2 28 Total Intake and Output 08/15/24 08/15/24 08/16/24 15:00 23:00 07:00 Intake Total 600 ml 1000 ml Output Total 500 ml 1300 ml Balance 100 ml -300 ml medications Current Medications Medications Dose Ordered Sig/[place] Route Start Time Stop Time Status Last Admin Dose Admin Lisinopril 20 mg DAILY PO 08/13/24 10:00 08/16/24 09:38 20 MG Atorvastatin Calcium 10 mg HS PO 08/13/24 22:00 08/15/24 21:05 10 MG Ibuprofen 600 mg Q6HP PRN PO 08/12/24 23:00 08/15/24 20:15 600 MG Diagnostic Test (Pha) 1 strip IQ4HR 08/13/24 00:00 08/16/24 17:02 1 STRIP Insulin Human Regular IQ4HR SC 08/13/24 00:00 08/16/24 04:30 2 UNITS Dextrose 50 ml UD PRN IV 08/12/24 23:00 Acetaminophen/ Hydrocodone Bitart 1 tab Q4HP PRN PO 08/12/24 23:00 08/16/24 08:01 1 TAB Ondansetron HCl 4 mg Q4HP PRN IV 08/12/24 23:00 Docusate Sodium 100 mg BIDPRN PRN PO 08/12/24 23:00 Aspirin 81 mg DAILY PO 08/13/24 10:00 08/16/24 09:37 81 MG Gabapentin 100 mg TID PO 08/14/24 14:00 08/16/24 14:54 100 MG Examination GENERAL: Not in acute distress. HEENT: EOMI, Moist mucous membranes. No scleral icterus. No cervical lymphadenopathy.neck tenderness LUNGS: Clear to auscultation bilaterally. No accessory muscle use. Patient is on 2 L of oxygen CARDIOVASCULAR: Regular rate and rhythm. No murmur. No JVD. ABDOMEN: Soft, nontender and nondistended. No palpable masses. EXTREMITIES: No edema. Nontender. SKIN: No rashes or lesions. Warm. NEUROLOGIC: Alert and oriented X3. laboratory and microbiology Laboratory Tests 08/14/24 05:39 Test 08/14/24 05:39 Range/Units Serum Glucose 141 H 74-106 mg/dL Microbiology Date/Time Source Procedure Growth Status 08/13/24 10:55 Nose MRSA Screen - Final Complete Problem List/Assessment/Plan Problem List/Assessment/Plan # Chest Pain, Likely musculoskeletal # ruled out ACS - A stress test performed on 05/04/24 was negative. - Echocardiogram showed 60% ejection fraction with aortic dilatation. - Given the negative stress test and current presentation, the chest pain is likely non-cardiac in origin. - continue aspirin atorvastatin # acute hypoxic respiratory failure secondary to chest pain and Shortness of Breath - Initiated breathing treatments - On 2 liters of oxygen - Monitor oxygen saturation and respiratory status - titrate oxygen - patient is not on home oxygen Diabetes Mellitus Type 2 Patient reports blood glucose over 400 after running out of [place] in July. History of diabetic neuropathy in foot. Current hemoglobin A1c is 9.9%. - Initiate moderate sliding scale insulin - Monitor blood glucose levels - Educate on lifestyle modifications: - Low-carb, low-calorie diet # Liver Disease, fatty liver - Continue monitoring liver function # Hypertension - continue home medication lisinopril - Monitor blood pressure # Hyperlipidemia - continue atorvastatin - Encourage lifestyle modifications: - Low-carb, low-calorie diet - Regular exercise # diabetic Neuropathy - Continue Gabapentin 100 mg TID # Homelessness - Consult criminal justice social worker for placement assistance. -Patient is awaiting for placement for recuperative care Goal of care discussed with patient for 16 minutes: Full code Plan discussed with Dr. Sotelo Plan discussed with: Patient My Orders My Orders Orders - PARVEZ ENCINAS RESIDENT Procedure Category Date Status Time * Instruction Librarian CONS 08/16/24 Transmitted Consult Date of Service: Aug 16, 2024 Billing Provider: ALVARO SOTELO MD Common Visit Codes: [id number] INP/OBS CARE(HIGH) PARVEZ ENCINAS RESIDENT Aug 16, 2024 17:22 ALVARO SOTELO MD Aug 17, 2024 20:27
[2024-08-17] VITALS (9 sets, daily range): BP systolic 102–152; BP diastolic 68–99; PULSE 59–100; RESP 18–20; TEMP 97.5–98.7; O2SAT 91–95
--- NOTE | 2024-08-17 16:14 | DVHPNRES ---
Progress Note Date Seen: Aug 17, 2024 Resident Creating Document: PARVEZ ENCINAS RESIDENT Medical Necessity Reason Pt with a Central, PICC or Fol: No Subjective Review of Systems Patient was seen and examined on the bedside. He is alert oriented x3. Mentioned feeling better. Patient is complaining on and off cervical neck pain, CT showed cervical stenosis. Applied hot pack for neck pain. As per social Service patient has maxed out of 180 days for this year and not getting [facility] authorization. Objective vital signs Vital Sign Date Time Temp Pulse Resp B/P (MAP) Pulse Ox O2 Delivery O2 Flow Rate FiO2 08/17/24 13:11 98.0 75 20 102/68 (79) 92 98.0 08/17/24 08:00 Nasal Cannula* 2 28 Total Intake and Output 08/16/24 08/16/24 08/17/24 15:00 23:00 07:00 Intake Total 1200 ml 450 ml Output Total 350 ml Balance 1200 ml 100 ml medications Current Medications Medications Dose Ordered Sig/[place] Route Start Time Stop Time Status Last Admin Dose Admin Lisinopril 20 mg DAILY PO 08/13/24 10:00 08/17/24 08:49 20 MG Atorvastatin Calcium 10 mg HS PO 08/13/24 22:00 08/16/24 21:52 10 MG Ibuprofen 600 mg Q6HP PRN PO 08/12/24 23:00 08/15/24 20:15 600 MG Diagnostic Test (Pha) 1 strip IQ4HR 08/13/24 00:00 08/17/24 11:53 1 STRIP Insulin Human Regular IQ4HR SC 08/13/24 00:00 08/17/24 12:18 2 UNITS Dextrose 50 ml UD PRN IV 08/12/24 23:00 Acetaminophen/ Hydrocodone Bitart 1 tab Q4HP PRN PO 08/12/24 23:00 08/17/24 08:48 1 TAB Ondansetron HCl 4 mg Q4HP PRN IV 08/12/24 23:00 Docusate Sodium 100 mg BIDPRN PRN PO 08/12/24 23:00 Aspirin 81 mg DAILY PO 08/13/24 10:00 08/17/24 08:48 81 MG Gabapentin 100 mg TID PO 08/14/24 14:00 08/17/24 13:37 100 MG Examination GENERAL: Not in acute distress. HEENT: EOMI, Moist mucous membranes. No scleral icterus. No cervical lymphadenopathy.neck tenderness LUNGS: Clear to auscultation bilaterally. No accessory muscle use. Patient is on 2 L of oxygen CARDIOVASCULAR: Regular rate and rhythm. No murmur. No JVD. ABDOMEN: Soft, nontender and nondistended. No palpable masses. EXTREMITIES: No edema. Nontender. SKIN: No rashes or lesions. Warm. NEUROLOGIC: Alert and oriented X3. laboratory and microbiology Laboratory Tests 08/14/24 05:39 Test 08/14/24 05:39 Range/Units Serum Glucose 141 H 74-106 mg/dL Microbiology Date/Time Source Procedure Growth Status 08/13/24 10:55 Nose MRSA Screen - Final Complete Problem List/Assessment/Plan Problem List/Assessment/Plan # Chest Pain, Likely musculoskeletal # ruled out ACS - A stress test performed on 05/04/24 was negative. - Echocardiogram showed 60% ejection fraction with aortic dilatation. - Given the negative stress test and current presentation, the chest pain is likely non-cardiac in origin. - continue aspirin atorvastatin # acute hypoxic respiratory failure secondary to chest pain and Shortness of Breath - Initiated breathing treatments - On 2 liters of oxygen - Monitor oxygen saturation and respiratory status - titrate oxygen - patient is not on home oxygen Diabetes Mellitus Type 2 Patient reports blood glucose over 400 after running out of [employer] in July. History of diabetic neuropathy in foot. Current hemoglobin A1c is 9.9%. - Initiate moderate sliding scale insulin - Monitor blood glucose levels - Educate on lifestyle modifications: - Low-carb, low-calorie diet # Liver Disease, fatty liver - Continue monitoring liver function # Hypertension - continue home medication lisinopril - Monitor blood pressure # Hyperlipidemia - continue atorvastatin - Encourage lifestyle modifications: - Low-carb, low-calorie diet - Regular exercise # diabetic Neuropathy - Continue Gabapentin 100 mg TID # Homelessness - Consult social worker aide for placement assistance. -As per social Service patient has maxed out of 180 days for this year and not getting [facility] authorization. Goal of care discussed with patient for 21 minutes: Full code Plan discussed with Dr. Sotelo Plan discussed with: Patient My Orders My Orders Orders - PARVEZ ENCINAS RESIDENT Procedure Category Date Status Time Discharge DISCHARGE 08/17/24 Transmitted 07:55 Date of Service: Aug 17, 2024 Billing Provider: ALVARO SOTELO MD Common Visit Codes: [id number] INP/OBS CARE(MOD) PARVEZ ENCINAS RESIDENT Aug 17, 2024 16:14 ALVARO SOTELO MD Aug 17, 2024 20:30
--- NOTE | 2024-08-18 06:24 | DVHDSRES ---
Discharge Summary Date of Admission Resident Creating Document: PARVEZ ENCINAS RESIDENT Aug 12, 2024 at 23:13 Date of Discharge: Aug 17, 2024 Admitting Diagnosis Chest pain Labs/Diagnostic Data: Laboratory Results Test 08/17/24 16:45 08/14/24 05:39 08/13/24 05:25 08/12/24 19:49 POC Glucose 174 mg/dl (70-106) White Blood Count 8.8 10^3/uL (4.4-10.8) Red Blood Count 5.31 10^6/uL (4.5-5.90) Hemoglobin 15.4 g/dL (13.5-17.5) Hematocrit 44.0 % (41.0-53.0) Mean Corpuscular Volume 82.9 fL (80.0-100.0) Mean Corpuscular Hemoglobin 29.0 pg (28.0-32.0) Mean Corpuscular Hemoglobin Concent 35.0 g/dL (32.0-36.0) Red Cell Distribution Width 13.4 % (11.8-14.3) Platelet Count 201 10^3/uL (140-450) Mean Platelet Volume 7.2 fL (6.9-10.8) Neutrophils (%) (Auto) 66.5 % (37.0-80.0) Lymphocytes (%) (Auto) 20.5 % (10.0-50.0) Monocytes (%) (Auto) 6.4 % (0.0-12.0) Eosinophils (%) (Auto) 6.0 % (0.0-7.0) Basophils (%) (Auto) 0.6 % (0.0-2.0) Neutrophils # (Auto) 5.8 10 ^3/uL (1.6-8.6) Lymphocytes # (Auto) 1.8 10 ^3/uL (0.4-5.4) Monocytes # (Auto) 0.6 10 ^3/uL (0-1.3) Eosinophils # (Auto) 0.5 10 ^3/uL (0-0.8) Basophils # (Auto) 0.1 10 ^3/uL (0-0.2) Nucleated Red Blood Cells 0.0 % Sodium Level 138 mmol/L (136-145) Potassium Level 3.8 mmol/L (3.5-5.1) Chloride Level 102 mmol/L (98-107) Carbon Dioxide Level 28 mmol/L (20-31) Anion Gap 8 (5-15) Blood Urea Nitrogen 14 mg/dL (9-23) Creatinine 0.93 mg/dL (0.700-1.30) Glomerular Filtration Rate Calc 93 mL/min (>90) BUN/Creatinine Ratio 15.1 (10.0-20.0) Serum Glucose 141 mg/dL (74-106) Calcium Level 9.6 mg/dL (8.7-10.4) Total Bilirubin 0.3 mg/dL (0.2-1.0) Aspartate Amino Transferase (AST) 22 U/L (13-40) Alanine Aminotransferase (ALT) 27 U/L (7-40) Alkaline Phosphatase 101 U/L (46-116) Total Protein 6.7 g/dL (5.7-8.2) Albumin 4.3 g/dL (3.2-4.8) Hepatitis B Surface Antigen Negative (Negative) Hepatitis B Core Total Antibody Negative (Negative) Troponin I High Sensitivity 3 ng/L (</=54) Test 08/12/24 19:03 Hemoglobin A1c 9.9 % A1C (<5.7) Other Laboratory Tests 08/14/24 05:39 Brief Hx & Hospital Course: HPI: 59-year-old male with a history of dementia, diabetes, liver disease, hypertension, and hyperlipidemia, presenting to [facility] with complaints of chest pain and shortness of breath. The patient reports experiencing chest pain, radiating to his left chest and right shoulder, rated 10 out of 10 in severity. This pain is associated with shortness of breath, which has been present for the last 2 days. Pt also complains of bilateral neck pain and acid reflux, Summery: A stress test performed on 05/04/24 was negative. Echocardiogram showed 60% ejection fraction with aortic dilatation. Given the negative stress test and current presentation, the chest pain is likely non-cardiac in origin. Started to continue ASA, Initiated breathing treatments, Was On 2 liters of oxygen, HbA1 was 9.9% Initiated moderate sliding scale insulin. Was complaining of B/L back neck pain CT shows: Multilevel degenerative changes most severe at C4-C5 through C6-C7 with moderate to severe neural foraminal and spinal canal stenosis. PRN pain medication. on 2nd day of admission patient was feeling better no complaint of Chest pain or SOB, as patient is Homeless we consulted for possible for placement to recuperative care. Social service contacted [facility] and [facility] informed me patient has maxed out his 180 days for the year. Per [facility] will not authorize clear path. So patient is going to be discharged to his friend's home. Advised pt to follow up in [place] clinic in 1-2 weeks. Condition at Discharge: Stable Final Diagnosis/Problems List # Chest Pain, Likely musculoskeletal # ruled out ACS # acute hypoxic respiratory failure secondary to chest pain and Shortness of Breath # Diabetes Mellitus Type 2 # Liver Disease, fatty liver # Hypertension # Hyperlipidemia, # diabetic Neuropathy, # Cervical Spinal stenosis # Homelessness. Discharge Disposition: Home SNF Discharge Will this Physician continue t: No Discharge Instruct/Medications Diet: Cardiac 2g Na,low cholest Activity: No Restrictions, As Tolerated Follow Up/Referral: Follow up with [place] clinic in 1 to 2 weeks. Medications: Continue Home medication. Scheduled Amoxicillin & Pot Clavulanate (Augmentin Tablet), 875 MG PO BID Clindamycin Hcl (Clindamycin Hcl), 1 CAP PO TID Gabapentin (Gabapentin), 1 CAP PO TID Lisinopril (Lisinopril), 1 TAB PO DAILY Metformin Hydrochloride (Metformin Hcl Er), 500 MG PO BID Scheduled PRN Hydrocodone-Acetaminophen (Hydrocodone Bitartrate/AC 5-325 mg), 1 TAB PO Q6HPRN PRN Hydrocodone-Acetaminophen (Hydrocodone Bitartrate/AC 5-325 mg), 1 TAB PO QID PRN Discharge Statement: "Patient was advised to return to the ER or call 911 if any headaches, dizziness, shortness of breath, chest pain, abdominal pain, bleeding, fevers, or worsening of medical condition. Patient was counseled about treatment plan, medications, possible side effects, patientverbalized understanding. All questions were answered to the best of my ability. This discharge took greater then 30 minutes in planning, reviewing documentation, counseling the patient, and discussing with other team members." ASSESSMENT ASSESSMENT Assessment CHES PAIN, LIKELY MUSCULOSKELETAL. RULED OUT ACS. Date of Service: Aug 17, 2024 Billing Provider: ALVARO SOTELO MD Common Visit Codes: 83266-PWG/OBS DISCH DAY >30min PARVEZ ENCINAS RESIDENT Aug 18, 2024 06:24 ALVARO SOTELO MD Aug 18, 2024 14:22
== END 2024-08-17 20:35 | disposition home or self-care (01) | DRG 133 ==
LOC: ER 18:49 → EDBD 18:49 → OVERFLOW 23:13 → TELE-CENTR 08-13 01:14 → CENTRAL 08-14 12:09
PROVIDERS: ADMIT Student in an Organized Health Care Education/Training Program; ATTEND Internal Medicine
DX: J96.01 Acute respiratory failure with hypoxia (principal); E11.40 Type 2 diabetes mellitus with diabetic neuropathy, unspecified; K76.0 Fatty (change of) liver, not elsewhere classified; E11.65 Type 2 diabetes mellitus with hyperglycemia; I10 Essential (primary) hypertension; K76.9 Liver disease, unspecified; E78.5 Hyperlipidemia, unspecified; M48.02 Spinal stenosis, cervical region; F17.210 Nicotine dependence, cigarettes, uncomplicated; Z59.00 Homelessness unspecified; Z91.199 Patient's noncompliance with other medical treatment and regimen due to unspecified reason; Z79.84 Long term (current) use of oral hypoglycemic drugs; Z79.899 Other long term (current) drug therapy
CPT/HCPCS: 36415; 71045; 72125; 80048; 80053; 82962; 83036; 84484; 85025; 87081; 87340; 93005; 96360; 99291; G0378; J1815

== ENCOUNTER 2024-08-19 03:18 | Emergency (ER) | payer MEDICAID ==
[~2024-08-19] VITALS: Ht 185.4 cm; Wt 118.0 kg
[2024-08-19] MEDS ORDERED: AMOX875T4 PO (03:55)
[2024-08-19] MEDS ORDERED: IBUP-1456 PO (03:55)
[2024-08-19 03:58] VITALS: BP 146/98; PULSE 104; RESP 12; TEMP 98.4; O2SAT 92
--- NOTE | 2024-08-19 03:58 | ED.PDOC ---
Eye-HPI HPI Comments 59 year old male presents to ER with complaints of toothache x2 days. Patient reports he has been experiencing right lower toothache pain x2 days. He rates his current right lower toothache pain a 10/10 with radiation towards his right ear. Patient presents to ER ambulatory on arrival, with steady gait, in no distress. Denies fever, body aches, chills, nausea/vomiting or any further symptoms/complaints Time Seen by MD: 03:30 Primary Care Provider: RALPH Faulkner Notes: Nurses Notes, Medications, Allergies Allergies: Coded Allergies: NO KNOWN ALLERGIES (Unverified , 10/29/23) Home Meds Active Scripts Hydrocodone-Acetaminophen (Hydrocodone Bitartrate/AC 5-325 mg) 1 Tab Tab, 1 TAB PO QID PRN, #30 TAB Prov:TERRI LAZAR MD 05/05/24 Clindamycin Hcl (Clindamycin Hcl) 300 Mg Cap, 1 CAP PO TID, #45 CAP Prov:TERRI LAZAR MD 05/05/24 Gabapentin (Gabapentin) 100 Mg Cap, 1 CAP PO TID, #90 CAP 5 Refills Prov:CHICHO CRAWFORD MD 11/04/23 Hydrocodone-Acetaminophen (Hydrocodone Bitartrate/AC 5-325 mg) 1 Tab Tab, 1 TAB PO Q6HPRN PRN, #20 TAB Prov:CHICHO CRAWFORD MD 11/04/23 Lisinopril (Lisinopril) 20 Mg Tab, 1 TAB PO DAILY, #30 TAB 5 Refills Prov:CHICHO CRAWFORD MD 11/04/23 Metformin Hydrochloride (METFORMIN HCL ER) 500 Mg Tab, 500 MG PO BID, #60 TAB 5 Refills Prov:CHICHO CRAWFORD MD 11/04/23 Amoxicillin & Pot Clavulanate (AUGMENTIN TABLET) 875 Mg Tb, 875 MG PO BID, #28 TAB Prov:CHICHO CRAWFORD MD 11/04/23 Information Source: Patient Mode of Arrival: Ambulatory Past Medical History PAST MEDICAL HISTORY: Depression, DM, High Lipids, HTN, Liver Surgical History: Denies all surgeries Family History Family History: Unknown Social History Smoker: Cigarettes, Less Than 1 Pack/Day Alcohol: Denies ETOH Use Drugs: Denies Drug Use Lives In: Assisted Care Constitutional: denies: chills, diaphoresis, fatigue, fever, malaise, sweats, weakness, others EENTM: reports: others (As stated in HPI) Respiratory: denies: cough, hemoptysis, orthopnea, SOB at rest, shortness of breath, SOB with excertion, stridor, wheezing, others Cardiovascular: denies: chest pain, dizzy spells, diaphoresis, Dyspnea on exertion, edema, irregular heart beat, left arm pain, lightheadedness, palpitations, PND, syncope, others Gastrointestinal: denies: abdomen distended, abdominal pain, blood streaked bowels, constipated, diarrhea, dysphagia, difficulty swallowing, hematemesis, melena, nausea, poor appetite, poor fluid intake, rectal bleeding, rectal pain, vomiting, others Genitourinary: denies: burning, dysuria, flank pain, frequency, hematuria, incontinence, penile discharge, penile sore, pain, testicle pain, testicle swelling, urgency, others Neurological: denies: dizziness, fainting, headache, left sided numbness, left sided weakness, numbness, paresthesia, pre-existing deficit, right sided numbness, right sided weakness, seizure, speech problems, tingling, tremors, weakness, others Musculoskeletal: denies: back pain, gout, joint pain, joint swelling, muscle pain, muscle stiffness, neck pain, others Integumetry: denies: bruises, change in color, change in hair/nails, dryness, laceration, lesions, lumps, rash, wounds, others Allergic/Immunocompromised: denies: Difficulty Healing, Frequent Infections, Hives, Itching, others Hematologic/Lymphatic: denies: anemia, blood clots, easy bleeding, easy bruising, swollen glands, others Endocrine: denies: excessive hunger, excessive sweating, excessive thirst, excessive urination, flushing, intolerance to cold, intolerance to heat, unexplained weight gain, unexplained weight loss, others Psychiatric: denies: anxiety, bipolar disorder, depression, hopeless, panic disorder, schizophrenia, sleepless, suicidal, others Physical Exam General Appearance: No Apparent Distress HEENT: PERRL/EOMI, Pharynx Normal, TMs Normal, Other (Mild swelling/erythema noted surrounding right lower 2nd molar tooth without bleeding/drainage. No facial swelling/skin changes noted) Neck: Full Range of Motion, Non-Tender, Normal Respiratory: Chest Non-Tender, Lungs Clear, No Accessory Muscle Use, No Respiratory Distress, Normal Breath Sounds Cardiovascular: No Murmur, No Gallop, Regular Rate/Rhythm Breast Exam: Deferred Gastrointestinal: NOT DONE Genitalia: Deferred Pelvic: Deferred Rectal: Deferred Extremities: Normal capillary refill, Normal range of motion Neurologic: Alert, corporate specialist II-XII nml as Tested, No Motor Deficits, Normal Affect, Normal Mood, No Sensory Deficits Cerebellar Function: Normal Reflexes: Normal Skin: Dry, Normal Color, Warm Lymphatic: No Adenopathy Was a procedure done? Was a procedure done?: No Sedation Sedation?: No EENT DIFF Eye: N/A Mouth: Thrush, Other (dental abscess, fractured tooth, jessica's angina) X-Ray, Labs, Meds, VS Tylenol #3 1 tablet p.o. ordered Smoking cessation discussed and advisd Advised to f/u with PCP and dentist in 1-2 days Patient verbalized understanding and agreeable with current plan of care Advised to return to ER immediately if symptoms worsen Time of 1ST Reevaluation: 03:30 Reevaluation 1ST: N/A Patient Education/Counseling: Diagnosis, Treatment, Prognosis, Need For Follow Up Family Education/Counseling: No Family Present Departure 1 Departure Time of Disposition: 03:52 Impression: Primary Impression: Dental infection Disposition: HOME / SELF CARE / HOMELESS Condition: Stable e-Prescriptions Ibuprofen (Ibuprofen) 800 Mg Tab 1 TAB PO TID PRN, #30 TAB 0 Refills Prov: DOUG TOTH 08/19/24 Amoxicillin & Pot Clavulanate (Amoxicillin/Potassium Cla) 875 Mg Tab 1 TAB PO BID for 7 Days, #14 TAB 0 Refills Prov: DOUG TOTH 08/19/24 Discharged With: Self Critical Care Note Critical Care Time?: No Stability Stability form required: No Heart Score Heart Score: Heart Score Response (Comments) Value History N/A 0 EKG N/A 0 Age N/A 0 Risk Factors N/A 0 Troponin N/A 0 Total 0 DOUG TOTH Aug 19, 2024 03:58
[2024-08-19] MEDS: ACETAMINOPHEN/CODEINE#3 (300/30mg) TAB PO ONE (04:00)
== END 2024-08-19 06:37 | disposition home or self-care (01) ==
LOC: ER 03:18
DX: K04.7 Periapical abscess without sinus (principal); F17.210 Nicotine dependence, cigarettes, uncomplicated; E11.9 Type 2 diabetes mellitus without complications; E78.5 Hyperlipidemia, unspecified; F32.A Depression, unspecified; I10 Essential (primary) hypertension; Z79.899 Other long term (current) drug therapy; Z79.84 Long term (current) use of oral hypoglycemic drugs

== ENCOUNTER 2024-08-26 13:14 | Emergency (ER) | payer MEDICAID ==
[~2024-08-26] VITALS: Ht 188 cm; Wt 119.5 kg
[~2024-08-26 13:14] MED LIST changes: +AMOX875T4 PO; +IBUP-1456 PO
--- NOTE | 2024-08-26 13:51 | ED.PDOC ---
History of Present Illness HPI Comments HPI: 59y M who presents to the ED for chief complaint of heat exhaustion - pt states he is homeless and states yesterday, he was walking and states he slipped down into a dirt hill. Denies any head or neck injury or any acute pain. Denies any loss of consciousness. - pt states today, he was walking outside and states due to the heat, he started to feel delirious with associated dizziness and came to the ED for what he suspects as heat exhaustion. -patient is stable vitals and is alert and oriented x 4 and able to answer all questions - pt states he drinks ETOH and uses methamphetamines and states he last used 1 1/2 weeks prior - pt has noted heart rate of 105 but otherwise has stable vitals in the ED: 99.0 F, RR 18, 02 sat of 95% on room air, and BP of 124/73 Past Medical history: DM, HTN, Hep C, sciatica Past Surgical history: R arm (radial and ulnar), R wrist, R toe Medications: Social History: endorses smoking, endorses ETOH, METH drug use. Allergies: NKDA HPI: Poor Historian. REVIEW OF SYSTEMS: CONSTITUTIONAL: Denies acute: fever, diaphoresis, chills, HEAD: Denies acute: headache, photophobia Eyes: Denies acute: Double vision, vision loss, eye pain, eye discharge. EARS: Denies acute: tinnitus, hearing loss, ear discharge, ear pain, THROAT: Denies acute: sore throat, swelling, difficulty swallowing , pain with swallowing, change in voice. NECK: Denies acute: neck pain, neck swelling, stiff neck. HEART: Denies acute : chest pain, palpitations, LUNGS: Denies acute: SOB, wheezing, cough, hemoptysis ABDOMEN: Denies acute: abdominal pain, Nausea, Vomiting, diarrhea, melena , hematemesis, hematochezia SKIN: Denies acute: rash, redness, lesions, itchiness. EXTREMITIES: Denies acute: calf pain, numbness, tingling, weakness, denies pain in extremity. Denies acute: Low back pain. Neuro: Denies acute: focal neurological deficit, motor or sensory focal neurological deficit, tremors, seizure like activity, confusion, change in mental status, loss of bowel or bladder function, cauda equina like symptoms. : Denies acute: dysuria, hematuria, flank pain, increase in urinary frequency. PSYCH: Denies acute: hallucination, suicidal ideation, homicidal ideation. PHYSICAL EXAM: General: ---no-----acute distress, awake and alert. Poor hygiene and appears homeless Head: normocephalic, atraumatic. Neck: supple, trachea is midline, no swelling. Throat: Normal phonation. Eyes:, no erythema, no purulent discharge, no proptosis, no icterus. Heart: regular rate, regular rhythm, no significant murmur appreciated. Lungs: no apparent respiratory distress, Able to speak in full sentences. No wheezing, no rhonchi, no crackles. No stridors Clear to auscultation bilaterally. Abdomen: non tender to palpation, non distended, soft, no guarding, no rebound, + bowel sounds. Obese Neuro: Awake, Alert, oriented to name, self, situation, follows commands GCS=15. Speech is normal. Skin: no petechia, no purpura, no cyanosis, non-pale, not jaundice. Lower extremities: --no - Pitting edema no deformity, no focal swelling, no calf TTP. Makes eye contact. moves all four extremities. Face: no apparent facial droop. Ambulating in the ED independently. ED COURSE: DISCLAIMER: This medical document was created using an electronic medical record system with voice recognition software and computerized dictation system. Although this document has been carefully reviewed, there might still be some phonetic and typographical errors. Occasional wrong-word or "sound-alike" substitutions may have occurred due to the inherent limitations of voice recognition software. These areas are purely typographical due to imperfections of the software programs and do not reflect any compromise in the patient's medical care. Please read the chart carefully and recognize, using context, where these substitutions have occurred. Time Seen by MD: 13:19 Primary Care Provider: RALPH Reviewed Notes: Medications, Allergies Allergies: Coded Allergies: NO KNOWN ALLERGIES (Unverified , 10/29/23) Home Meds Active Scripts Ibuprofen (Ibuprofen) 800 Mg Tab, 1 TAB PO TID PRN, #30 TAB 0 Refills Prov:DOUG TOTH 08/19/24 Amoxicillin & Pot Clavulanate (Amoxicillin/Potassium Cla) 875 Mg Tab, 1 TAB PO BID for 7 Days, #14 TAB 0 Refills Prov:DOUG TOTH 08/19/24 Hydrocodone-Acetaminophen (Hydrocodone Bitartrate/AC 5-325 mg) 1 Tab Tab, 1 TAB PO QID PRN, #30 TAB Prov:TERRI LAZAR MD 05/05/24 Clindamycin Hcl (Clindamycin Hcl) 300 Mg Cap, 1 CAP PO TID, #45 CAP Prov:TERRI LAZAR MD 05/05/24 Gabapentin (Gabapentin) 100 Mg Cap, 1 CAP PO TID, #90 CAP 5 Refills Prov:CHICHO CRAWFORD MD 11/04/23 Hydrocodone-Acetaminophen (Hydrocodone Bitartrate/AC 5-325 mg) 1 Tab Tab, 1 TAB PO Q6HPRN PRN, #20 TAB Prov:CHICHO CRAWFORD MD 11/04/23 Lisinopril (Lisinopril) 20 Mg Tab, 1 TAB PO DAILY, #30 TAB 5 Refills Prov:CHICHO CRAWFORD MD 11/04/23 Metformin Hydrochloride (METFORMIN HCL ER) 500 Mg Tab, 500 MG PO BID, #60 TAB 5 Refills Prov:HCICHO CRAWFORD MD 11/04/23 Amoxicillin & Pot Clavulanate (AUGMENTIN TABLET) 875 Mg Tb, 875 MG PO BID, #28 TAB Prov:CHICHO CRAWFORD MD 11/04/23 Information Source: Patient Mode of Arrival: Ambulatory Past Medical History PAST MEDICAL HISTORY: Depression, DM, High Lipids, HTN, Liver Surgical History: Denies all surgeries Family History Family History: Unknown Social History Smoker: Cigarettes, Less Than 1 Pack/Day Alcohol: Denies ETOH Use Drugs: Denies Drug Use Lives In: Assisted Care Was a procedure done? Was a procedure done?: No Differential Dx Considerations may include: dehydration, heat stroke, homelessness, rhabdomyolysis, electrolyte abnormality, CVA, ACS, QUINN X-Ray, Labs, Meds, VS Vital Signs Date Time Temp Pulse Resp B/P (MAP) Pulse Ox O2 Delivery O2 Flow Rate FiO2 08/26/24 18:42 98.1 88 17 142/80 (100) 94 98.1 08/26/24 18:02 98.3 82 18 139/72 (94) 95 98.3 08/26/24 15:04 98.1 89 18 139/79 (99) 99 98.1 08/26/24 15:04 89 18 99 Room Air 08/26/24 13:20 99.0 105 18 124/73 (90) 95 99.0 Lab Test 08/26/24 17:29 08/26/24 17:00 08/26/24 15:23 08/26/24 14:42 Range/Units Lactic Acid Level 1.6 2.5 *H 0.4-2.0 mmol/L Troponin I High Sensitivity 3 L 3 L < 3 L </=54 ng/L Urine Color Yellow Yellow Urine Clarity Clear Clear Urine pH 6.0 5.0-9.0 Urine Specific [place] 1.036 H 1.001-1.035 Urine Protein Trace H Negative Urine Ketones Negative Negative Urine Blood Negative Negative /uL Urine Nitrite Negative Negative Urine Bilirubin Negative Negative Urine Urobilinogen Normal Negative mg/dL Urine Leukocyte Esterase Negative Negative /uL Urine RBC 1 0 - 3 /hpf Urine Microscopic WBC < 1 0-3 /HPF Urine Squamous Epithelial Cells Few <5 /hpf Urine Bacteria None seen None Seen /hpf Urine Mucus Few None Seen Urine Glucose 4+ H Normal mg/dL Urine Opiates Screen Neg NEGATIVE Urine Fentanyl Screen Neg NEGATIVE Urine Barbiturates Screen Neg NEGATIVE Urine Phencyclidine Screen Neg NEGATIVE Urine Amphetamines Screen Neg NEGATIVE Urine Benzodiazepines Screen Neg NEGATIVE Urine Cocaine Screen Neg NEGATIVE Urine Cannabinoids Screen Neg NEGATIVE White Blood Count 10.1 4.4-10.8 10^3/uL Red Blood Count 5.30 4.5-5.90 10^6/uL Hemoglobin 15.2 13.5-17.5 g/dL Hematocrit 44.2 41.0-53.0 % Mean Corpuscular Volume 83.5 80.0-100.0 fL Mean Corpuscular Hemoglobin 28.7 28.0-32.0 pg Mean Corpuscular Hemoglobin Concent 34.4 32.0-36.0 g/dL Red Cell Distribution Width 14.1 11.8-14.3 % Platelet Count 256 140-450 10^3/uL Mean Platelet Volume 7.7 6.9-10.8 fL Neutrophils (%) (Auto) 72.9 37.0-80.0 % Lymphocytes (%) (Auto) 17.3 10.0-50.0 % Monocytes (%) (Auto) 6.8 0.0-12.0 % Eosinophils (%) (Auto) 2.5 0.0-7.0 % Basophils (%) (Auto) 0.5 0.0-2.0 % Neutrophils # (Auto) 7.4 1.6-8.6 10 ^3/uL Lymphocytes # (Auto) 1.7 0.4-5.4 10 ^3/uL Monocytes # (Auto) 0.7 0-1.3 10 ^3/uL Eosinophils # (Auto) 0.3 0-0.8 10 ^3/uL Basophils # (Auto) 0 0-0.2 10 ^3/uL Nucleated Red Blood Cells 0.2 % Sodium Level 137 136-145 mmol/L Potassium Level 3.3 L 3.5-5.1 mmol/L Chloride Level 102 98-107 mmol/L Carbon Dioxide Level 27 20-31 mmol/L Anion Gap 8 5-15 Blood Urea Nitrogen 13 9-23 mg/dL Creatinine 1.05 0.700-1.30 mg/dL Glomerular Filtration Rate Calc 81 >90 mL/min BUN/Creatinine Ratio 12.4 10.0-20.0 Serum Glucose 258 H 74-106 mg/dL Calcium Level 9.9 8.7-10.4 mg/dL Magnesium Level 1.6 1.6-2.6 mg/dL Total Bilirubin 0.5 0.2-1.0 mg/dL Aspartate Amino Transferase (AST) 32 13-40 U/L Alanine Aminotransferase (ALT) 43 H 7-40 U/L Alkaline Phosphatase 118 H 46-116 U/L Creatine Kinase 105 46-171 U/L Total Protein 7.1 5.7-8.2 g/dL Albumin 4.6 3.2-4.8 g/dL [address] [address] Ph: [phone] DIAGNOSTIC IMAGING Diagnostic Imaging Report : [id number] Signed PATIENT: YOUSIF EASON ACCT: [id number] UNIT: [id number] : 1965 LOC: ER ROOM / BED: / AGE / SEX: 59 / M ADM STATUS: REG ER SERVICE 1338 ORDERING PHYSICIAN: PALMIRA VO DO PROCEDURE(s): CXRP - CHEST PORTABLE REASON: Heat exhaustion ORDER NUMBER(s): [id number], ACCESSION NUMBER(s): [id number] CHEST RADIOGRAPH Indication: Heat exhaustion Technique: Single frontal view of the chest was obtained COMPARISON: XY CHEST PORTABLE on DOS: 08/12/24, XY CHEST PORTABLE on DOS: 04/30/24 FINDINGS: Lines and Tubes: None Lungs: Clear Pleura: No effusion. No pneumothorax. Cardiomediastinal contours: Unremarkable Bones: Unremarkable IMPRESSION: No acute disease. ATED BY: DINO WELLS MD DICTATED DATE/TIME: 08/26/241519 SIGNED BY: DINO WELLS MD SIGNED DATE/TIME: 08/26/241519 CC: Time of 1ST Reevaluation: 00:00 Reevaluation 1ST: N/A Patient Education/Counseling: Diagnosis, Treatment Family Education/Counseling: No Family Present Comments MDM: patient presented with the above HPI.-weakness exhaustion dehydration-----workup was initiated. patient was found with the above mentioned diagnosis. the following medications were ordered: please refer to order lists of meds and tests obtained by myself Dr. Vo. Patient ED course and VS have been stabilized. Patient has been reassessed in the ED and remained in a stable condition. Pertinent incidental findings were discussed with the patient and/or family. Patient/family voices understanding and is agreeable with plan. Patient has been observed in the ED adequate length of time to insure improvement/stability. Escalation of care considered: Consideration of escalation to observation or admission Patient was DISCHARGED home in a stable condition. All the reports of any imaging studies that were ordered by myself were reviewed by myself. SEPSIS Sepsis Screen Physician Orders Addiction Specialist (08/26/24 ) Chest Portable (08/26/24 14:07) Electrocardigram (08/26/24 14:07) Vital Signs Date Time Temp Pulse Resp B/P (MAP) Pulse Ox O2 Delivery O2 Flow Rate FiO2 08/26/24 18:42 98.1 88 17 142/80 (100) 94 98.1 08/26/24 18:02 98.3 82 18 139/72 (94) 95 98.3 08/26/24 15:04 98.1 89 18 139/79 (99) 99 98.1 08/26/24 15:04 89 18 99 Room Air 08/26/24 13:20 99.0 105 18 124/73 (90) 95 99.0 Laboratory Tests Test 08/26/24 14:42 08/26/24 17:29 Lactic Acid Level 2.5 mmol/L (0.4-2.0) *H 1.6 mmol/L (0.4-2.0) White Blood Count 10.1 10^3/uL (4.4-10.8) Departure 1 Departure Time of Disposition: 17:14 Impression: Primary Impression: Dehydration Additional Impressions: Homeless Heat exhaustion Disposition: HOME / SELF CARE / HOMELESS Condition: Stable Additional Instructions: Additional instructions: You MUST follow-up with your primary care/family doctor in 1 to 2 days. If you are unable to see your primary care/family doctor, please return to our emergency room for re-assessment and re-evaluation in 1 to 2 days. Return to the emergency room here in our facility or to the nearest ER [facility] if your symptoms change or worsen. CONSULTATIONS: you MUST Follow-up for consultation as soon as possible with: -cardiology and psychology in 1-2 days. Please call for appointment. You MUST call the consultants office yourself to make an appointment. You may need to arrange that through your insurance and/or your primary/family doctor. If you are unable to see the behavioral consultant in 1 to 2 days, you must return to our emergency room (or any other ER of your choice) for re-assessment and re- evaluation. Adequate fluid hydration. Avoid excessive heat exposure. Adequate fluid hydration. Avoid all drugs. Below is a copy of your radiological report for follow up: Discharged With: Self Critical Care Note Critical Care Time?: No I personally scribed for PAL[facility]A VO DO ([facility] on 08/26/24 at 13:51. Electronically submitted by Marcelino Rhodes ([email or web address]). I personally scribed for PALMIRA VO DO ([email or web address]) on 08/26/24 at 14:41. Electronically submitted by Marcelino Rhodes ([email or web address]). I personally scribed for PALMIRA VO DO ([email or web address]) on 08/26/24 at 21:04. Electronically submitted by Marcelino Rhodes ([facility] PALMIRA VO DO Aug 26, 2024 13:51
[2024-08-26] MEDS: SODIUM CHLORIDE 0.9% 1,000 ML IV ONE ×2 (14:54→15:29)
[2024-08-26 15:02] LABS: Hematocrit 44.2 % (41.0-53.0); Hemoglobin 15.2 g/dL (13.5-17.5); Mean Corpuscular Hemoglobin 28.7 pg (28.0-32.0); Mean Corpuscular Volume 83.5 fL (80.0-100.0); Nucleated Red Blood Cells % 0.2 %
--- NOTE | 2024-08-26 15:22 | DVH ---
CHEST RADIOGRAPH Indication: Heat exhaustion Technique: Single frontal view of the chest was obtained COMPARISON: XY CHEST PORTABLE on DOS: 08/12/24, XY CHEST PORTABLE on DOS: 04/30/24 FINDINGS: Lines and Tubes: None Lungs: Clear Pleura: No effusion. No pneumothorax. Cardiomediastinal contours: Unremarkable Bones: Unremarkable IMPRESSION: No acute disease.
[2024-08-26 15:25] LABS: Anion Gap 8 (5-15); BUN/Creatinine Ratio 12.4 (10.0-20.0); Blood Urea Nitrogen 13 mg/dL (9-23); Calcium 9.9 mg/dL (8.7-10.4); Carbon Dioxide 27 mmol/L (20-31); Chloride 102 mmol/L (98-107); Magnesium 1.6 mg/dL (1.6-2.6); Sodium 137 mmol/L (136-145); Total Protein 7.1 g/dL (5.7-8.2)
[2024-08-26 15:26] LABS: Albumin 4.6 g/dL (3.2-4.8); Bilirubin, Total 0.5 mg/dL (0.2-1.0); Creatine Kinase IFCC 105 U/L (46-171)
[2024-08-26 15:27] LABS: Alanine Aminotransferase 43 U/L (7-40); Alkaline Phosphatase 118 U/L (46-116); Glucose 258 mg/dL (74-106); Lactic Acid w/Reflex 2.5 mmol/L (0.4-2.0); Potassium 3.3 mmol/L (3.5-5.1)
[2024-08-26 17:47] LABS: Amphetamine Screen, Urine Neg (NEGATIVE); Benzodiazephine Screen, Urine Neg (NEGATIVE)
[2024-08-26 18:09] LABS: Barbiturate Scree,Urine Neg (NEGATIVE); Cannabinoid Screen, Urine Neg (NEGATIVE); Cocaine Screen, Urine Neg (NEGATIVE); Opiate Scree,Urine Neg (NEGATIVE); Phencyclidine Screen, Urine Neg (NEGATIVE); Urine Protein, UAD TRACE (Negative)
[2024-08-26 18:42] VITALS: BP 142/80; PULSE 88; RESP 17; TEMP 98.1; O2SAT 94
== END 2024-08-26 18:44 | disposition home or self-care (01) ==
LOC: ER 13:14
DX: E86.0 Dehydration (principal); F17.210 Nicotine dependence, cigarettes, uncomplicated; F32.A Depression, unspecified; E78.5 Hyperlipidemia, unspecified; I10 Essential (primary) hypertension; E11.9 Type 2 diabetes mellitus without complications; Z79.899 Other long term (current) drug therapy; Z79.84 Long term (current) use of oral hypoglycemic drugs; Z59.00 Homelessness unspecified; W01.0XXA Fall on same level from slipping, tripping and stumbling without subsequent striking against object, initial encounter; Y93.01 Activity, walking, marching and hiking; Y92.89 Other specified places as the place of occurrence of the external cause; Y99.8 Other external cause status
CPT/HCPCS: 36415; 71045; 80053; 80307; 81001; 82550; 83605; 83735; 84484; 85025; 96360; 96361; 99284; J7030

== ENCOUNTER 2024-08-29 18:25 | Emergency (ER) | payer MEDICAID ==
[~2024-08-29] VITALS: Ht 188 cm; Wt 120.0 kg
[2024-08-29 18:27] VITALS: O2SAT 93
[2024-08-29 19:10] LABS: Hematocrit 41.1 % (41.0-53.0); Hemoglobin 14.4 g/dL (13.5-17.5); Mean Corpuscular Hemoglobin 29.0 pg (28.0-32.0); Mean Corpuscular Volume 82.6 fL (80.0-100.0); Nucleated Red Blood Cells % 0.1 %
--- NOTE | 2024-08-29 19:10 | ED.PDOC ---
History of Present Illness HPI Comments 59 y/o morbidly obese M presents with c/c 8/10, sternal chest pain, that radiates down the midline of his entire abdomen until his periumbilical region, with associated nausea. Onset occurred 3-4 hours prior to arrival, suddenly and unprovoked, while at rest. Pain is constant and pressure-like in quality, with occasional spikes of sharpness. No recent sick contact, travel, injuries, or lifestyle changes. Significant history for DM, HLD, HTN, liver disease, nicotine tobacco product use, and homelessness. Patient denies having any shortness of breath, palpitations, vomiting, fever, chills, or further associated symptoms. Chief Complaint: Chest Pain Time Seen by MD: 18:30 Primary Care Provider: RALPH Faulkner Notes: Nurses Notes, Medications, Allergies Allergies: Coded Allergies: NO KNOWN ALLERGIES (Unverified , 10/29/23) Home Meds Active Scripts Ibuprofen (Ibuprofen) 800 Mg Tab, 1 TAB PO TID PRN, #30 TAB 0 Refills Prov:DOUG TOTH 08/19/24 Amoxicillin & Pot Clavulanate (Amoxicillin/Potassium Cla) 875 Mg Tab, 1 TAB PO BID for 7 Days, #14 TAB 0 Refills Prov:DOUG TOTH 08/19/24 Hydrocodone-Acetaminophen (Hydrocodone Bitartrate/AC 5-325 mg) 1 Tab Tab, 1 TAB PO QID PRN, #30 TAB Prov:TERRI LAZAR MD 05/05/24 Clindamycin Hcl (Clindamycin Hcl) 300 Mg Cap, 1 CAP PO TID, #45 CAP Prov:TERRI LAZAR MD 05/05/24 Gabapentin (Gabapentin) 100 Mg Cap, 1 CAP PO TID, #90 CAP 5 Refills Prov:CHICHO CRAWFORD MD 11/04/23 Hydrocodone-Acetaminophen (Hydrocodone Bitartrate/AC 5-325 mg) 1 Tab Tab, 1 TAB PO Q6HPRN PRN, #20 TAB Prov:CHICHO CRAWFORD MD 11/04/23 Lisinopril (Lisinopril) 20 Mg Tab, 1 TAB PO DAILY, #30 TAB 5 Refills Prov:CHICHO CRAWFORD MD 11/04/23 Metformin Hydrochloride (METFORMIN HCL ER) 500 Mg Tab, 500 MG PO BID, #60 TAB 5 Refills Prov:CHICHO CRAWFORD MD 11/04/23 Amoxicillin & Pot Clavulanate (AUGMENTIN TABLET) 875 Mg Tb, 875 MG PO BID, #28 TAB Prov:CHICHO CRAWFORD MD 11/04/23 Information Source: Patient Mode of Arrival: Ambulatory Severity: Moderate Timing: Hours Duration: Since onset Prehospital treatment: None Past Medical History PAST MEDICAL HISTORY: Depression, DM, High Lipids, HTN, Liver Surgical History: Denies all surgeries Family History Family History: Unknown Social History Smoker: Cigarettes, Less Than 1 Pack/Day Alcohol: Denies ETOH Use Drugs: Denies Drug Use Lives In: Assisted Care Constitutional: denies: chills, diaphoresis, fatigue, fever, malaise, sweats, weakness, others EENTM: denies: blurred vision, double vision, ear bleeding, ear discharge, ear drainage, ear pain, ear ringing, eye pain, eye redness, hearing loss, mouth pain, mouth swelling, nasal discharge, nose bleeding, nose congestion, nose pain, photophobia, tearing, throat pain, throat swelling, voice changes, others Respiratory: denies: cough, hemoptysis, orthopnea, SOB at rest, shortness of breath, SOB with excertion, stridor, wheezing, others Cardiovascular: denies: chest pain, dizzy spells, diaphoresis, Dyspnea on exertion, edema, irregular heart beat, left arm pain, lightheadedness, palpitations, PND, syncope, others Gastrointestinal: denies: abdomen distended, abdominal pain, blood streaked bowels, constipated, diarrhea, dysphagia, difficulty swallowing, hematemesis, melena, nausea, poor appetite, poor fluid intake, rectal bleeding, rectal pain, vomiting, others Genitourinary: denies: burning, dysuria, flank pain, frequency, hematuria, incontinence, penile discharge, penile sore, pain, testicle pain, testicle swelling, urgency, others Neurological: denies: dizziness, fainting, headache, left sided numbness, left sided weakness, numbness, paresthesia, pre-existing deficit, right sided numbness, right sided weakness, seizure, speech problems, tingling, tremors, weakness, others Musculoskeletal: denies: back pain, gout, joint pain, joint swelling, muscle pain, muscle stiffness, neck pain, others Integumetry: denies: bruises, change in color, change in hair/nails, dryness, laceration, lesions, lumps, rash, wounds, others Allergic/Immunocompromised: denies: Difficulty Healing, Frequent Infections, Hives, Itching, others Hematologic/Lymphatic: denies: anemia, blood clots, easy bleeding, easy bruising, swollen glands, others All Other Systems: Reviewed and Negative (Comprehensive systems review obtained and negative except for what is stated in the HPI.) Physical Exam General Appearance: No Apparent Distress, Obese HEENT: Normal ENT Inspection, Pharynx Normal, TMs Normal Neck: Full Range of Motion, Non-Tender, Normal, Normal Inspection Respiratory: Chest Non-Tender, Lungs Clear, No Accessory Muscle Use, No Respiratory Distress, Normal Breath Sounds Cardiovascular: No Edema, No JVD, No Murmur, No Gallop, Normal Peripheral Pulses, Regular Rate/Rhythm Breast Exam: Deferred Gastrointestinal: No Organomegaly, Non Tender, No Pulsatile Mass, Normal Bowel Sounds, Soft Genitalia: Deferred Pelvic: Deferred Rectal: Deferred Extremities: No calf tenderness, Normal capillary refill, Normal inspection, Normal range of motion, Non-tender, No pedal edema Musculoskeletal : Apperance: Normal Neurologic: Alert, pattern clerk II-XII nml as Tested, No Motor Deficits, Normal Affect, Normal Mood, No Sensory Deficits Cerebellar Function: Normal Reflexes: Normal Skin: Dry, Normal Color, Warm Lymphatic: No Adenopathy Was a procedure done? Was a procedure done?: No Differential Dx Considerations may include: [place], PE, ACS, URI, PNA, viral syndrome, angina, among others X-Ray, Labs, Meds, VS Vital Signs Date Time Temp Pulse Resp B/P (MAP) Pulse Ox O2 Delivery O2 Flow Rate FiO2 08/29/24 18:31 99 08/29/24 18:27 98.3 10 18 143/67 (92) 93 98.3 Lab Test 08/29/24 19:25 08/29/24 18:35 Range/Units Troponin I High Sensitivity 3 L 3 L </=54 ng/L White Blood Count 11.6 H 4.4-10.8 10^3/uL Red Blood Count 4.98 4.5-5.90 10^6/uL Hemoglobin 14.4 13.5-17.5 g/dL Hematocrit 41.1 41.0-53.0 % Mean Corpuscular Volume 82.6 80.0-100.0 fL Mean Corpuscular Hemoglobin 29.0 28.0-32.0 pg Mean Corpuscular Hemoglobin Concent 35.1 32.0-36.0 g/dL Red Cell Distribution Width 13.7 11.8-14.3 % Platelet Count 265 140-450 10^3/uL Mean Platelet Volume 7.5 6.9-10.8 fL Neutrophils (%) (Auto) 67.5 37.0-80.0 % Lymphocytes (%) (Auto) 20.3 10.0-50.0 % Monocytes (%) (Auto) 8.6 0.0-12.0 % Eosinophils (%) (Auto) 3.1 0.0-7.0 % Basophils (%) (Auto) 0.5 0.0-2.0 % Neutrophils # (Auto) 7.8 1.6-8.6 10 ^3/uL Lymphocytes # (Auto) 2.4 0.4-5.4 10 ^3/uL Monocytes # (Auto) 1.0 0-1.3 10 ^3/uL Eosinophils # (Auto) 0.4 0-0.8 10 ^3/uL Basophils # (Auto) 0.1 0-0.2 10 ^3/uL Nucleated Red Blood Cells 0.1 % Sodium Level 139 136-145 mmol/L Potassium Level 3.4 L 3.5-5.1 mmol/L Chloride Level 102 98-107 mmol/L Carbon Dioxide Level 24 20-31 mmol/L Anion Gap 13 5-15 Blood Urea Nitrogen 10 9-23 mg/dL Creatinine 1.08 0.700-1.30 mg/dL Glomerular Filtration Rate Calc 78 >90 mL/min BUN/Creatinine Ratio 9.3 L 10.0-20.0 Serum Glucose 157 #H 74-106 mg/dL Calcium Level 8.9 8.7-10.4 mg/dL X-Ray, Labs, Meds, VS Comment Imaging: X-rays and CT scans were reviewed and interpreted by this provider, imaging shows no fractures and no pathological disease. Pending radiology review. Laboratory: Labs reviewed and interpreted by this provider. No significant abnormalities noted. Patient has prior medical visits reviewed. Med reconciliation performed Vital signs reviewed Time of 1ST Reevaluation: 19:00 Reevaluation 1ST: Unchanged Patient Education/Counseling: Diagnosis, Treatment, Need For Follow Up (Follow up with PCP next available appointment. Return to the emergency department if symptoms worsen.) Family Education/Counseling: No Family Present Additional Information Previous visits reviewed: April 30, 2024, August 12, 2024, and August 26, 2024 encounters for chest pain, chest pain, and dehydration, respectively. The following tests were ordered, and results were reviewed by me: CXR, troponin, UA, BMP, CBC Additional Information was gathered from interviewing the following independent historians: N/A I reviewed and agreed with the following test results read by other providers: CXR I discussed treatment and results with medical personnel and: patient SEPSIS Sepsis Screen Physician Orders Electrocardigram (08/29/24 18:39) Electrocardigram (08/29/24 19:39) Electrocardigram (08/29/24 21:39) Chest Xray 1 View (08/29/24 19:00) Urinalysis (08/29/24 19:00) Vital Signs Date Time Temp Pulse Resp B/P (MAP) Pulse Ox O2 Delivery O2 Flow Rate FiO2 08/29/24 18:31 99 08/29/24 18:27 98.3 10 18 143/67 (92) 93 98.3 Laboratory Tests Test 08/29/24 18:35 White Blood Count 11.6 10^3/uL (4.4-10.8) H Departure 1 Departure Time of Disposition: 22:33 Impression: Primary Impression: Musculoskeletal chest pain Disposition: HOME / SELF CARE / HOMELESS Condition: Stable Discharged With: Self Critical Care Note Critical Care Time?: No Stability Stability form required: No Heart Score Heart Score: Heart Score Response (Comments) Value History Moderate Suspicious 1 EKG Normal 0 Age 45-64 1 Risk Factors >3 or Hx ASHD 2 Troponin Normal limit 0 Total 4 I personally scribed for NAZANIN EMERY ([email or web address]) on 08/29/24 at 19:10. Electronically submitted by Ryne Moreira ([email or web address]). NAZANIN EMERY Aug 29, 2024 19:10
[2024-08-29 19:23] LABS: Anion Gap 13 (5-15); Calcium 8.9 mg/dL (8.7-10.4); Carbon Dioxide 24 mmol/L (20-31); Chloride 102 mmol/L (98-107); Potassium 3.4 mmol/L (3.5-5.1); Sodium 139 mmol/L (136-145)
[2024-08-29 19:28] LABS: BUN/Creatinine Ratio 9.3 (10.0-20.0); Blood Urea Nitrogen 10 mg/dL (9-23); Glucose 157 mg/dL (74-106)
--- NOTE | 2024-08-29 21:18 | DVH ---
CHEST RADIOGRAPH Indication: cp Technique: Single frontal view of the chest was obtained COMPARISON: XY CHEST PORTABLE on DOS: 08/26/24, XY CHEST PORTABLE on DOS: 08/12/24, XY CHEST PORTABLE on DOS: 04/30/24 FINDINGS: Lines and Tubes: None Lungs: Clear Pleura: No effusion. No pneumothorax. Cardiomediastinal contours: Unremarkable. Atherosclerotic vascular calcifications. Bones: Unremarkable IMPRESSION: 1. No acute disease.
[2024-08-29 22:49] VITALS: BP 147/81; PULSE 89; RESP 20; TEMP 98.1
[2024-08-29] MEDS: ALPRAZolam 0.5 MG TAB PO ONE (23:12)
--- NOTE | 2024-08-31 08:41 | ECG ---
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
== END 2024-08-29 22:53 | disposition home or self-care (01) ==
LOC: ER 18:25
DX: R07.89 Other chest pain (principal); F17.210 Nicotine dependence, cigarettes, uncomplicated; F32.A Depression, unspecified; E11.9 Type 2 diabetes mellitus without complications; E78.5 Hyperlipidemia, unspecified; I10 Essential (primary) hypertension; E66.01 Morbid (severe) obesity due to excess calories; Z68.34 Body mass index [BMI] 34.0-34.9, adult; Z79.899 Other long term (current) drug therapy; Z79.84 Long term (current) use of oral hypoglycemic drugs
CPT/HCPCS: 36415; 71045; 80048; 84484; 85025; 93005